=== PATIENT | female | born 1935 | race Caucasian/White ===

== ENCOUNTER 2018-08-14 13:22 | Inpatient (IN) | payer MEDICARE ==
--- NOTE | 2018-08-14 14:27 | ED ---
General Adult HPI - General Chief complaint: Abdominal Pain Stated complaint: ischemic bowel Time Seen by Provider: 08/14/18 13:30 Source: patient, EMS, RN notes reviewed Mode of arrival: EMS Limitations: altered mental status - History of Present Illness Initial comments: This is an 83-year-old female who presents to the emergency department complaining of abdominal pain for 2 days. Patient went to [facility] first had lab work done and a computed tomography scan they transferred the patient here because there were worried about ischemic bowel. Patient states she was vomiting last evening but has had no diarrhea. Patient states the pain is in the right lower quadrant and the only previous abdominal surgery she has had is a hysterectomy. Patient denies any fever or chills. Patient denies any chest pain difficulty breathing shortest breath. Patient denies any dysuria hematuria urinary frequency. Patient denies any back pain. - Related Data Home Medications Medication Instructions Recorded Confirmed Donepezil [Aricept] 10 mg PO DAILY 08/14/18 08/14/18 Fenofibrate 80 mg PO PC-SUPPER 08/14/18 08/14/18 Hydrochlorothiazide 12.5 mg PO DAILY 08/14/18 08/14/18 Allergies Allergy/AdvReac Type Severity Reaction Status Date / Time No Known Allergies Allergy Verified 08/14/18 14:15 Review of Systems ROS Statement: Those systems with pertinent positive or pertinent negative responses have been documented in the HPI. ROS Other: All systems not noted in ROS Statement are negative. Past Medical History Past Medical History: GERD/Reflux, Hyperlipidemia, Hypertension Additional Past Medical History / Comment(s): dementia History of Any Multi-Drug Resistant Organisms: None Reported Past Surgical History: Hysterectomy, Orthopedic Surgery Additional Past Surgical History / Comment(s): left hip Past Psychological History: No Psychological Hx Reported Smoking Status: Former smoker Past Alcohol Use History: None Reported Past Drug Use History: None Reported General Exam - General Exam Comments Initial Comments: GENERAL: Patient is well-developed and well-nourished. Patient is nontoxic and well- hydrated and is in mild distress. ENT: Neck is soft and supple. No significant lymphadenopathy is noted. Oropharynx is clear. Moist mucous membranes. Neck has full range of motion without eliciting any pain. EYES: The sclera were anicteric and conjunctiva were pink and moist. Extraocular movements were intact and pupils were equal round and reactive to light. Eyelids were unremarkable. PULMONARY: Unlabored respirations. Good breath sounds bilaterally. No audible rales rhonchi or wheezing was noted. CARDIOVASCULAR: There is a regular rate and rhythm without any murmurs gallops or rubs. ABDOMEN: Patient has right lower quadrant abdominal tenderness and rebound. SKIN: Skin is clear with no lesions or rashes and otherwise unremarkable. NEUROLOGIC: Patient is alert and oriented 2. Cranial nerves II through XII are grossly intact. Motor and sensory are also intact. Normal speech, volume and content. Symmetrical smile. MUSCULOSKELETAL: Normal extremities with adequate strength and full range of motion. LYMPHATICS: No significant lymphadenopathy is noted PSYCHIATRIC: Normal psychiatric evaluation. Limitations: altered mental status Course Vital Signs 08/14/18 13:29 Temperature 99.1 F Pulse Rate 66 Respiratory 18 Rate Blood Pressure 167/73 O2 Sat by Pulse 98 Oximetry Medical Decision Making - Medical Decision Making Dr. Crocker of radiology reread the CT and definitively stated that the patient had a small bowel obstruction with a transition point. I spoke with Dr. Barron he agreed to admit the patient I admitted the patient I wrote admitting orders. I consulted Dr. Holloway. Disposition Clinical Impression: Small bowel obstruction Disposition: ADMITTED IP TO THIS HOSP Referrals: Teresa Molina MD [Primary Care Provider] - 1-2 days Time of Disposition: 14:57
[2018-08-14] MEDS ORDERED: HYDROmorphone 0.5 MG/0.5 ML SYRINGE IVP STA (14:56)
[2018-08-14] MEDS ORDERED: ONDANSETRON 4 MG/2 ML VIAL IVP STA (14:56)
[2018-08-14] MEDS ORDERED: SODIUM CHLORIDE 0.9% 1,000 ML IV ONE (15:08)
--- NOTE | 2018-08-14 16:27 | P.HPIM ---
History of Present Illness H&P Date: 08/14/18 Chief Complaint: abdominal pain This is an 83 year old female, a patient of Dr. Molina. She has a known past medical history of dementia, hypertension, hyperlipidemia, GERD and hysterectomy. Patient initially presented to [facility] with abdominal pain and vomiting. Symptoms started 3 days ago. Patient lives on her own and her daughter, Eve helps out with the groceries in [place]. Patient did report she had some vomiting on Monday multiple times. She may have had a small bowel movement yesterday. Patient is a poor historian. She presented to [facility] and they had labs and computed tomography scan of the abdomen completed CT had shown fluid in the peritoneal cavity and increased attenuation of the mesenteric fat which findings could be due to ischemia of the bowel versus accumulation of fluid in the peritoneal cavity. There were mildly distended loops of the small bowel, possible ileus. Mild sclerosis of the left femoral head raising possibility of avascular necrosis. Also right kidney cortical renal cyst largest of 3.7 cm. White count 10.95 hemoglobin 13 platelets are 228 lipase 111 lactic elevated at 2.5 creatinine 0.9 BUN 16 AST 25 and ALT 28. Patient was transferred to [facility] for further's treatment and care. Surgery has been consulted. Nursing was unable to get NG tube in place patient had nosebleed. Patient denies any fever, chills, sweats. Denies any burning with urination. Review of Systems Please refer to HPI otherwise unremarkable Past Medical History Past Medical History: GERD/Reflux, Hyperlipidemia, Hypertension Additional Past Medical History / Comment(s): dementia History of Any Multi-Drug Resistant Organisms: None Reported Past Surgical History: Hysterectomy, Orthopedic Surgery Additional Past Surgical History / Comment(s): left hip Past Psychological History: No Psychological Hx Reported Smoking Status: Former smoker Past Alcohol Use History: None Reported Past Drug Use History: None Reported Medications and Allergies Home Medications Medication Instructions Recorded Confirmed Type Donepezil [Aricept] 10 mg PO DAILY 08/14/18 08/14/18 History Fenofibrate 80 mg PO PC-SUPPER 08/14/18 08/14/18 History Hydrochlorothiazide 12.5 mg PO DAILY 08/14/18 08/14/18 History Allergies Allergy/AdvReac Type Severity Reaction Status Date / Time No Known Allergies Allergy Verified 08/14/18 14:15 Physical Exam Vitals: Vital Signs Temp Pulse Resp BP Pulse Ox 08/14/18 13:29 99.1 F 66 18 167/73 98 Intake and Output 08/14/18 08/14/18 08/14/18 06:59 14:59 22:59 Other: Weight 57.7 kg Head normocephalic Neck supple Lungs clear to auscultation bilaterally no wheezing or crackles Heart regular rate and rhythm S1-S2, no rub or gallop Abdomen is distended positive bowel sounds. Currently nontender but patient did receive Dilaudid Extremities no edema Neuro alert and orientated to 2 patient knows her name and place. She was able to identify her daughter at bedside Assessment and Plan Assessment: 1. Abdominal pain with vomiting: CT abdomen at [place] concerns for possible ischemic bowel. Dr. Crocker of radiology reread the CT and definitively stated that the patient had a small bowel obstruction with a transition point per ER record. Surgical consult has been placed. 2. Mildly elevated lactic acid at [place] 2.5 we'll repeat lactic acid level. 3. Essential hypertension: Patient on hydrochlorothiazide at home. Which is on hold due to her nothing by mouth status. We'll add IV Vasotec as needed for systolic blood pressure 160 or diastolic greater than 90 4. Hyperlipidemia 5. Dementia 6. Nosebleed after failing NG tube placement Recheck CBC , CMP and lactic acid GI prophylaxis Protonix and DVT prophylaxis SCDs until seen by surgery. Also monitor patient's nosebleeds. Time with Patient: Greater than 30 (Greater than 50% of the total time spent in counseling and coordination of care.I performed an examination of the patient and discussed their management with the physician Vice President [employer]. I have reviewed the Physician Vice President [employer]'s notes and agree with the documented findings and plan of care)
[2018-08-14 17:41] LABS: Basophils % (A) 0 %; Eosinophils % (A) 0 %; HGB 12.6 gm/dL (11.4-16.0); Lymphocytes # (A) 1.3 k/uL (1.0-4.8); Lymphocytes % (A) 11 %; MCH 29.3 pg (25.0-35.0); MCHC 31.5 g/dL (31.0-37.0); Mean Platelet Volume 9.3; Monocytes % (A) 9 %; Neutrophils # (A) 8.8 k/uL (1.3-7.7); Neutrophils % (A) 78 %; Platelet Count 256 k/uL (150-450); RDW 13.4 % (11.5-15.5); WBC 11.3 k/uL (3.8-10.6)
[2018-08-14 17:53] LABS: Albumin 4.3 g/dL (3.5-5.0); Calcium 10.1 mg/dL (8.4-10.2); Total Bilirubin 0.6 mg/dL (0.2-1.3); Total Protein 7.2 g/dL (6.3-8.2)
[2018-08-14 18:33] VITALS: BMI 21.2
[2018-08-14] MEDS: ONDANSETRON 4 MG/2 ML VIAL IVP PRN (18:50)
[2018-08-14] MEDS: PANTOPRAZOLE 40 MG/10 ML VIAL IVP SCH (18:51)
[2018-08-14] MEDS: HYDROmorphone 0.5 MG/0.5 ML SYRINGE IVP PRN (18:51)
[2018-08-15] MEDS: ENALAPRILAT 1.25 MG/ML 1 ML VIAL IVP PRN ×2 (00:12→08:44)
[2018-08-15] MEDS: ONDANSETRON 4 MG/2 ML VIAL IVP PRN ×2 (02:02→08:01)
[2018-08-15] MEDS: PANTOPRAZOLE 40 MG/10 ML VIAL IVP SCH (08:02)
[2018-08-15 08:43] LABS: Basophils % (A) 0 %; Eosinophils % (A) 0 %; HCT 36.2 % (34.0-46.0); HGB 11.6 gm/dL (11.4-16.0); Lymphocytes % (A) 12 %; MCH 30.2 pg (25.0-35.0); MCHC 32.2 g/dL (31.0-37.0); MCV 93.8 fL (80.0-100.0); Mean Platelet Volume 8.3; Monocytes # (A) 0.9 k/uL (0-1.0); Monocytes % (A) 10 %; Neutrophils # (A) 6.8 k/uL (1.3-7.7); Neutrophils % (A) 75 %; Platelet Count 248 k/uL (150-450); RBC 3.86 m/uL (3.80-5.40); RDW 13.4 % (11.5-15.5)
[2018-08-15] MEDS: HYDROmorphone 0.5 MG/0.5 ML SYRINGE IVP PRN (08:45)
[2018-08-15 08:53] LABS: Albumin 3.6 g/dL (3.5-5.0); Calcium 9.2 mg/dL (8.4-10.2); Potassium 3.9 mmol/L (3.5-5.1); Total Bilirubin 0.6 mg/dL (0.2-1.3); Total Protein 6.2 g/dL (6.3-8.2)
--- NOTE | 2018-08-15 12:14 | P.PN ---
Subjective Progress Note Date: 08/15/18 This is an 83 year old female, a patient of Dr. Molina. She has a known past medical history of dementia, hypertension, hyperlipidemia, GERD and hysterectomy. Patient initially presented to [facility] with abdominal pain and vomiting. Symptoms started 3 days ago. Patient lives on her own and her daughter, Eve helps out with the groceries in [place] [employer]. Patient did report she had some vomiting on Monday multiple times. She may have had a small bowel movement yesterday. Patient is a poor historian. She presented to [facility] and they had labs and computed tomography scan of the abdomen completed CT had shown fluid in the peritoneal cavity and increased attenuation of the mesenteric fat which findings could be due to ischemia of the bowel versus accumulation of fluid in the peritoneal cavity. There were mildly distended loops of the small bowel, possible ileus. Mild sclerosis of the left femoral head raising possibility of avascular necrosis. Also right kidney cortical renal cyst largest of 3.7 cm. White count 10.95 hemoglobin 13 platelets are 228 lipase 111 lactic elevated at 2.5 creatinine 0.9 BUN 16 AST 25 and ALT 28. Patient was transferred to [facility] for further's treatment and care. Surgery has been consulted. Nursing was unable to get NG tube in place patient had nosebleed. Patient denies any fever, chills, sweats. Denies any burning with urination. On 08/15/2018 Patient is alert and oriented 3. NG tube is in place. Patient's stomach is slightly improved per patient. Patients nausea has improved. Awaiting surgical input for plan. At this time patient denies chest pain or shortness of breath. Patient denies any nausea or vomiting. Patient denies any urinary burning or frequency Objective - Vital Signs Vital signs: Vital Signs Temp 98.3 F 08/15/18 07:18 Pulse 73 08/15/18 07:18 Resp 16 08/14/18 23:58 BP 163/69 08/15/18 07:18 Pulse Ox 98 08/15/18 07:18 Intake & Output 08/14/18 08/15/18 08/15/18 18:59 06:59 18:59 Intake Total 75 262.5 Balance 75 262.5 Weight 57.7 kg Intake: Amount of Fluid Infused ( 75 ml) Intake, IV Titration 262.5 Amount Sodium Chloride 0.9% 1, 262.5 000 ml @ 75 mls/hr IV . [id number] ONE Rx#:[id number] Other: Voiding Method Toilet - Exam Head normocephalic Neck supple Lungs clear to auscultation bilaterally no wheezing or crackles Heart regular rate and rhythm S1-S2, no rub or gallop Abdomen is distended positive bowel sounds. Currently nontender but patient did receive Dilaudid Extremities no edema Neuro alert and orientated to 2 patient knows her name and place. She was able to identify her daughter at bedside - Labs CBC & Chem 7: 08/15/18 08:07 08/15/18 08:07 Labs: Abnormal Lab Results - Last 24 Hours (Table) 08/14/18 08/14/18 08/15/18 Range/Units 17:20 17:20 08:07 WBC 11.3 H (3.8-10.6) k/uL Neutrophils # 8.8 H (1.3-7.7) k/uL BUN 18 H (7-17) mg/dL Glucose 127 H 114 H (74-99) mg/dL Total Protein 6.2 L (6.3-8.2) g/dL Assessment and Plan Assessment: 1. Abdominal pain with vomiting: CT abdomen at [place] concerns for possible ischemic bowel. Dr. Crocker of radiology reread the CT and definitively stated that the patient had a small bowel obstruction with a transition point per ER record. Surgical consult has been placed. Patient remains nothing by mouth until evaluated by surgical services 2. Mildly elevated lactic acid at [place] 2.5 we'll repeat lactic acid level. repeat lactic 1.2 3. Essential hypertension: Patient on hydrochlorothiazide at home. Which is on hold due to her nothing by mouth status. We'll add IV Vasotec as needed for systolic blood pressure 160 or diastolic greater than 90 4. Hyperlipidemia 5. Dementia 6. Nosebleed after failing NG tube placement. Resolved NG tube has been placed GI prophylaxis Protonix and DVT prophylaxis SCDs until seen by surgery. I performed an examination of the patient and discussed their management with the Nurse Practitioner. I have reviewed the Nurse Practitioner's notes and agree with the documented findings and plan of care
[2018-08-15] MEDS: DONEPEZIL 10 MG TAB PO SCH (13:01)
[2018-08-15] MEDS: HYDROCHLOROTHIAZIDE 12.5 MG CAP PO SCH (13:01)
[2018-08-15] MEDS ORDERED: ACETAMINOPHEN IV (For NPO) 1,000 MG in EMPTY BAG 1 BAG IVPB PRN (14:39)
--- NOTE | 2018-08-15 15:58 | P.GSCN ---
<Melody Deluca - Last Filed: 08/15/18 16:00> History of Present Illness Consult date: 08/15/18 Reason for Consult: SBO Requesting physician: Feng Leon History of present illness: CHIEF COMPLAINT: Small bowel obstruction HISTORY OF PRESENT ILLNESS: 83-year-old female who presented to [facility] Monday with severe abdominal pain. Patient was found to have a small bowel obstruction and was transferred to [facility]. General surgery was consulted for further evaluation. Patients daughter and son-in-law and have provided much of the HPI. Family reports the patients abdominal pain began on Monday and the patient reported "feeling ill". Patient was experiencing nausea and vomiting. She called her family Monday to take her to the hospital. Patient currently has a NG tube in place with minimal bilious output. Reports pain is tolerable at this time. Denies passing flatus. WBC 11.3 on admission. Repeat 9.0. Vital signs have been stable. Temp 98.3 this AM. PAST MEDICAL HISTORY: See list. PAST SURGICAL HISTORY: See list. SOCIAL HISTORY: No illicit drug use. REVIEW OF SYSTEMS: CONSTITUTIONAL: Denies fever or chills. HEENT: Denies blurred vision, vision changes, or eye pain. Denies hemoptysis CARDIOVASCULAR: Denies chest pain or pressure. RESPIRATORY: No shortness of breath. GASTROINTESTINAL: Refer to HPI for pertinent findings HEMATOLOGIC: Denies bleeding disorders. GENITOURINARY: Denies any blood in urine. SKIN: Denies pruitis. Denies rash. PHYSICAL EXAM: VITAL SIGNS: Reviewed. GENERAL: Well-developed in no acute distress. HEENT: No sclera icterus. Extraocular movements grossly intact. Moist buccal mucosa. Head is atraumatic, normocephalic. ABDOMEN: Soft. Nondistended. Minimal pain upon palpation. NG to LIS with minimal bilious output. NEUROLOGIC: Alert and oriented. Cranial nerves II through XII grossly intact. ASSESSMENT: 1. Small bowel obstruction PLAN: Dr. Otoole reviewed CT scan from [place]. Patient with SBO. Concern for closed loop obstruction. Continue NG and NPO. Repeat abdominal xray in AM. Conservative measures at this time. Patient may require surgical intervention. This was discussed in detail with patients daughter and son and in law at the bedside. Nurse practitioner note has been reviewed by physician. Signing provider agrees with the documented findings, assessment, and plan of care. Past Medical History Past Medical History: GERD/Reflux, Hyperlipidemia, Hypertension Additional Past Medical History / Comment(s): dementia History of Any Multi-Drug Resistant Organisms: None Reported Past Surgical History: Hysterectomy, Orthopedic Surgery Additional Past Surgical History / Comment(s): left hip Past Anesthesia/Blood Transfusion Reactions: No Reported Reaction Past Psychological History: No Psychological Hx Reported Smoking Status: Former smoker Past Alcohol Use History: None Reported Past Drug Use History: None Reported - Past Family History Daughter(s) Family Medical History: No Reported History Mother Family Medical History: Coronary Artery Disease (CAD), Myocardial Infarction ([place]) Medications and Allergies Home Medications Medication Instructions Recorded Confirmed Type Donepezil [Aricept] 10 mg PO DAILY 08/14/18 08/14/18 History Fenofibrate 80 mg PO PC-SUPPER 08/14/18 08/14/18 History Hydrochlorothiazide 12.5 mg PO DAILY 08/14/18 08/14/18 History Allergies Allergy/AdvReac Type Severity Reaction Status Date / Time No Known Allergies Allergy Verified 08/14/18 14:15 Surgical - Exam Vital Signs Temp Pulse Resp BP Pulse Ox 99.1 F 66 18 167/73 98 08/14/18 13:29 08/14/18 13:29 08/14/18 13:29 08/14/18 13:29 08/14/18 13:29 Results - Labs 08/15/18 08:07 08/15/18 08:07 Abnormal Lab Results - Last 24 Hours (Table) 08/14/18 08/14/18 08/15/18 Range/Units 17:20 17:20 08:07 WBC 11.3 H (3.8-10.6) k/uL Neutrophils # 8.8 H (1.3-7.7) k/uL BUN 18 H (7-17) mg/dL Glucose 127 H 114 H (74-99) mg/dL Total Protein 6.2 L (6.3-8.2) g/dL Diabetes panel 08/14/18 08/15/18 Range/Units 17:20 08:07 Sodium 140 140 (137-145) mmol/L Potassium 4.0 3.9 (3.5-5.1) mmol/L Chloride 102 106 (98-107) mmol/L Carbon Dioxide 29 29 (22-30) mmol/L BUN 17 18 H (7-17) mg/dL Creatinine 0.80 0.73 (0.52-1.04) mg/dL Glucose 127 H 114 H (74-99) mg/dL Calcium 10.1 9.2 (8.4-10.2) mg/dL AST 20 20 (14-36) U/L ALT 25 20 (9-52) U/L Alkaline Phosphatase 51 43 (38-126) U/L Total Protein 7.2 6.2 L (6.3-8.2) g/dL Albumin 4.3 3.6 (3.5-5.0) g/dL Calcium panel 08/14/18 08/15/18 Range/Units 17:20 08:07 Calcium 10.1 9.2 (8.4-10.2) mg/dL Albumin 4.3 3.6 (3.5-5.0) g/dL Pituitary panel 08/14/18 08/15/18 Range/Units 17:20 08:07 Sodium 140 140 (137-145) mmol/L Potassium 4.0 3.9 (3.5-5.1) mmol/L Chloride 102 106 (98-107) mmol/L Carbon Dioxide 29 29 (22-30) mmol/L BUN 17 18 H (7-17) mg/dL Creatinine 0.80 0.73 (0.52-1.04) mg/dL Glucose 127 H 114 H (74-99) mg/dL Calcium 10.1 9.2 (8.4-10.2) mg/dL Adrenal panel 08/14/18 08/15/18 Range/Units 17:20 08:07 Sodium 140 140 (137-145) mmol/L Potassium 4.0 3.9 (3.5-5.1) mmol/L Chloride 102 106 (98-107) mmol/L Carbon Dioxide 29 29 (22-30) mmol/L BUN 17 18 H (7-17) mg/dL Creatinine 0.80 0.73 (0.52-1.04) mg/dL Glucose 127 H 114 H (74-99) mg/dL Calcium 10.1 9.2 (8.4-10.2) mg/dL Total Bilirubin 0.6 0.6 (0.2-1.3) mg/dL AST 20 20 (14-36) U/L ALT 25 20 (9-52) U/L Alkaline Phosphatase 51 43 (38-126) U/L Total Protein 7.2 6.2 L (6.3-8.2) g/dL Albumin 4.3 3.6 (3.5-5.0) g/dL <Ori Otoole - Last Filed: 08/15/18 19:39> History of Present Illness History of present illness: As above. Patient with complaints of abdominal pain and bloating. Symptoms for the last 3-4 days. She has experienced a acute change in bowel function. CAT scan from [place] partially loaded on our system. Evidence of distended proximal small bowel loops with collapsed distal small bowel consistent with small bowel obstruction. Some free intraperitoneal fluid is present. Patient's family requested a change in the initial consultation from the on-call surgeon to myself. I was not notified however of this consult until this morning. Apparently the family was quite upset that the patient had not been seen by stan yusuf this morning at 9 AM or so. The family apparently was also concerned that surgical consultation could lead to early operative intervention stating that "surgeons just want to sharma her to the or and operate. They are all about the money." The patient was seen by myself this morning around 11:00 and by my nurse practitioner prior to that. The patient was seen sitting up comfortably in her bed. Still having some abdominal discomfort however improved. Minimal nasogastric tube output. No bowel function. Labs today are improved. Patient's exam however shows persistent distention and bilateral lower quadrant tenderness. Options reviewed with the patient's daughter at the bedside. A pparently the son-in-law who was the most boisterous this morning was not present. Options of observation versus surgical intervention at this time reviewed. Given the stable vital signs and improved white blood cell count I am comfortable with a period of observation. We'll repeat abdominal x-rays tomorrow morning and repeat clinical abdominal examination tomorrow as well. If bowel obstruction and tenderness persist on films and exam however would recommend diagnostic laparoscopy plus or minus exploratory laparotomy. Surgical - Exam Vital Signs Temp Pulse Resp BP Pulse Ox 99.1 F 66 18 167/73 98 08/14/18 13:29 08/14/18 13:29 08/14/18 13:29 08/14/18 13:29 08/14/18 13:29 Results - Labs 08/15/18 08:07 08/15/18 08:07 Abnormal Lab Results - Last 24 Hours (Table) 08/15/18 Range/Units 08:07 BUN 18 H (7-17) mg/dL Glucose 114 H (74-99) mg/dL Total Protein 6.2 L (6.3-8.2) g/dL Diabetes panel 08/15/18 Range/Units 08:07 Sodium 140 (137-145) mmol/L Potassium 3.9 (3.5-5.1) mmol/L Chloride 106 (98-107) mmol/L Carbon Dioxide 29 (22-30) mmol/L BUN 18 H (7-17) mg/dL Creatinine 0.73 (0.52-1.04) mg/dL Glucose 114 H (74-99) mg/dL Calcium 9.2 (8.4-10.2) mg/dL AST 20 (14-36) U/L ALT 20 (9-52) U/L Alkaline Phosphatase 43 (38-126) U/L Total Protein 6.2 L (6.3-8.2) g/dL Albumin 3.6 (3.5-5.0) g/dL Calcium panel 08/15/18 Range/Units 08:07 Calcium 9.2 (8.4-10.2) mg/dL Albumin 3.6 (3.5-5.0) g/dL Pituitary panel 08/15/18 Range/Units 08:07 Sodium 140 (137-145) mmol/L Potassium 3.9 (3.5-5.1) mmol/L Chloride 106 (98-107) mmol/L Carbon Dioxide 29 (22-30) mmol/L BUN 18 H (7-17) mg/dL Creatinine 0.73 (0.52-1.04) mg/dL Glucose 114 H (74-99) mg/dL Calcium 9.2 (8.4-10.2) mg/dL Adrenal panel 08/15/18 Range/Units 08:07 Sodium 140 (137-145) mmol/L Potassium 3.9 (3.5-5.1) mmol/L Chloride 106 (98-107) mmol/L Carbon Dioxide 29 (22-30) mmol/L BUN 18 H (7-17) mg/dL Creatinine 0.73 (0.52-1.04) mg/dL Glucose 114 H (74-99) mg/dL Calcium 9.2 (8.4-10.2) mg/dL Total Bilirubin 0.6 (0.2-1.3) mg/dL AST 20 (14-36) U/L ALT 20 (9-52) U/L Alkaline Phosphatase 43 (38-126) U/L Total Protein 6.2 L (6.3-8.2) g/dL Albumin 3.6 (3.5-5.0) g/dL
[2018-08-15] MEDS: FENOFIBRATE 160 MG TAB PO SCH (18:04)
[2018-08-16] MEDS: HEPARIN SODIUM,PORCINE 5,000 UNIT/ML 1 ML VIAL SQ SCH ×4 (00:07→23:17)
[2018-08-16] MEDS: HYDROmorphone 0.5 MG/0.5 ML SYRINGE IVP PRN ×2 (00:08→09:44)
[2018-08-16 08:03] LABS: Basophils % (A) 0 %; Eosinophils % (A) 0 %; HCT 37.7 % (34.0-46.0); HGB 11.9 gm/dL (11.4-16.0); Lymphocytes # (A) 1.1 k/uL (1.0-4.8); Lymphocytes % (A) 14 %; MCH 29.7 pg (25.0-35.0); MCHC 31.5 g/dL (31.0-37.0); MCV 94.4 fL (80.0-100.0); Mean Platelet Volume 8.9; Monocytes # (A) 0.9 k/uL (0-1.0); Monocytes % (A) 12 %; Neutrophils # (A) 5.5 k/uL (1.3-7.7); Neutrophils % (A) 72 %; Platelet Count 239 k/uL (150-450); RDW 13.3 % (11.5-15.5); WBC 7.6 k/uL (3.8-10.6)
[2018-08-16 08:17] LABS: ALT 27 U/L (9-52); AST 23 U/L (14-36); Albumin 3.4 g/dL (3.5-5.0); Alkaline Phosphatase 44 U/L (38-126); Anion Gap 7 mmol/L; Blood Urea Nitrogen 19 mg/dL (7-17); Carbon Dioxide 26 mmol/L (22-30); Chloride 108 mmol/L (98-107); Glucose 93 mg/dL (74-99); Potassium 3.7 mmol/L (3.5-5.1); Sodium 141 mmol/L (137-145); Total Bilirubin 0.7 mg/dL (0.2-1.3); Total Protein 5.9 g/dL (6.3-8.2)
--- NOTE | 2018-08-16 08:29 | XR ---
2 view abdomen HISTORY: Small bowel obstruction, lower abdominal pain 2 views of the abdomen correlated to prior exam CT 08/14/2018 from outside institution Multiple air-fluid levels and distended loops of bowel are present. NG tube shows the distal tip at t he level of the distal esophagus. Lung bases are clear. There is a scoliosis. No pneumoperitoneum. IMPRESSION: Suboptimal NG tube placement. Findings compatible with small bowel obstruction. A Yellow level critical message alert has been initiated for Melina Barron MD via the [employer] Critical Results System on 08/16/2018 8:25 AM. This message alert has been sent to Melina Barron MD via the preferences provided by the clinician for the receipt of Radiology Critical Findings. Message ID [id number].
[2018-08-16] MEDS: ENALAPRILAT 1.25 MG/ML 1 ML VIAL IVP PRN (09:44)
[2018-08-16] MEDS: ONDANSETRON 4 MG/2 ML VIAL IVP PRN (09:44)
[2018-08-16 09:53] LABS: Appearance,Urine Clear (Clear); Bacteria,Urine Rare /hpf; Bilirubin,Urine Negative (Negative); Blood,Urine Negative (Negative); Color,Urine Yellow; Glucose,Urine (UA) Negative (Negative); Ketones,Urine 1+ (Negative); Leukocyte Esterase,Urine Trace (Negative); Mucus,Urine Rare /hpf; Nitrite,Urine Negative (Negative); PH, Urine 5.5 (5.0-8.0); Protein,Urine Trace (Negative); RBC,Urine 1 /hpf (0-5); Specific Gravity,Urine 1.023 (1.001-1.035); Squamous Epithelial Cell,Urine 2 /hpf (0-4); Urobilinogen,Urine <2.0 mg/dL (<2.0)
[2018-08-16] MEDS: DONEPEZIL 10 MG TAB PO SCH (11:08)
[2018-08-16] MEDS: HYDROCHLOROTHIAZIDE 12.5 MG CAP PO SCH (11:08)
--- NOTE | 2018-08-16 13:05 | P.PN ---
Progress Note - Text Progress Note Date: 08/16/18 Patient was again seen by the nurse practitioner earlier this morning. Still having some abdominal discomfort and no bowel function. Today's x-rays show persistent small bowel obstruction. She is afebrile with no tachycardia. White blood cell count remains normal. On examination patient continues to have lower abdominal tenderness. No peritoneal signs. Options reviewed with the patients daughter and the patient herself. At this point further diagnostics will likely not be beneficial. Recommend exploratory laparotomy with possible bowel resection. Risks of bleeding, infection, leak, abscess, hernia, recurrent obstruction, respiratory and cardiac complications reviewed. They understand and wish to proceed. Unfortunately the patient's son-in-law was once again fairly hostile this morning apparently he is most upset about not seeing the admitting physician and there was discussion about switching the admitting physician to a different hospitalist service. Apparently he has no issues currently with the care that the surgical services have provided thus far. Apparently he initially was discussing possible transfer once again but changed his mind after further discussing her case with the nurses and my nurse practitioner this morning.
--- NOTE | 2018-08-16 13:29 | P.PN ---
Subjective Progress Note Date: 08/16/18 CHIEF COMPLAINT: Small bowel obstruction HISTORY OF PRESENT ILLNESS: Patient seen and examined at approximately 0900 this morning. The patient reports increased pain this morning and states "I feel like crap". Clinically, patient appears much more uncomfortable this morning. Abdominal xray completed this morning revealing persistent small bowel obstruction. NG tube was advanced by nursing per radiologist recommendations. Patient denies passing flatus. No BM. PHYSICAL EXAM: VITAL SIGNS: Reviewed. GENERAL: Well-developed in no acute distress. HEENT: No sclera icterus. Extraocular movements grossly intact. Moist buccal mucosa. Head is atraumatic, normocephalic. ABDOMEN: Soft. Distended. Pain and tenderness noted upon palpation of left and right lower quadrants. NG to LIS with minimal bilious output. NEUROLOGIC: Alert and oriented. Cranial nerves II through XII grossly intact. ASSESSMENT: 1. Small bowel obstruction PLAN: Case discussed with Dr. Otoole early this morning. Likely exploratory laparotomy this afternoon. Will update family upon their arrival to the hospital. Nurse practitioner note has been reviewed by physician. Signing provider agrees with the documented findings, assessment, and plan of care. Objective - Vital Signs Vital signs: Vital Signs Temp 98.3 F 08/16/18 07:00 Pulse 73 08/16/18 07:00 Resp 16 08/16/18 07:00 BP 177/68 08/16/18 07:00 Pulse Ox 97 08/16/18 07:00 Intake & Output 08/15/18 08/16/18 08/16/18 18:59 06:59 18:59 Intake Total 600 750 Output Total 300 Balance 600 450 Intake: Intake, IV Titration 600 750 Amount Sodium Chloride 0.9% 1, 600 750 000 ml @ 75 mls/hr IV . [id number] ONE Rx#:[id number] Output: Gastric Drainage 300 Other: # Voids 2 1 - Labs CBC & Chem 7: 08/16/18 07:29 08/16/18 07:29 Labs: Abnormal Lab Results - Last 24 Hours (Table) 08/16/18 08/16/18 Range/Units 06:30 07:29 Chloride 108 H (98-107) mmol/L BUN 19 H (7-17) mg/dL Total Protein 5.9 L (6.3-8.2) g/dL Albumin 3.4 L (3.5-5.0) g/dL Urine Protein Trace H (Negative) Urine Ketones 1+ H (Negative) Ur Leukocyte Esterase Trace H (Negative) Urine WBC 7 H (0-5) /hpf Urine Bacteria Rare H (None) /hpf Urine Mucus Rare H (None) /hpf
[2018-08-16] MEDS ORDERED: IV FLUID CONTINUATION 500 ML IV ONE (13:34)
[2018-08-16] MEDS ORDERED: LIDOCAINE 1% 20 ML VIAL (10MG/ML) FOR IV START INTRADERMA ONE (13:49)
[2018-08-16] MEDS ORDERED: LACTATED RINGERS 1,000 ML IV ONE ×2 (13:51→15:15)
[2018-08-16] MEDS ORDERED: fentaNYL (PF) 50 MCG/ML 2 ML AMP IVP ONE (13:58)
[2018-08-16] MEDS ORDERED: MIDAZOLAM 2 MG/2 ML VIAL IVP ONE (13:58)
--- NOTE | 2018-08-16 14:13 | P.PN ---
Subjective Progress Note Date: 08/16/18 This is an 83 year old female, a patient of Dr. Molina. She has a known past medical history of dementia, hypertension, hyperlipidemia, GERD and hysterectomy. Patient initially presented to [facility] with abdominal pain and vomiting. Symptoms started 3 days ago. Patient lives on her own and her daughter, Eve helps out with the groceries in [place]. Patient did report she had some vomiting on Monday multiple times. She may have had a small bowel movement yesterday. Patient is a poor historian. She presented to [facility] and they had labs and computed tomography scan of the abdomen completed CT had shown fluid in the peritoneal cavity and increased attenuation of the mesenteric fat which findings could be due to ischemia of the bowel versus accumulation of fluid in the peritoneal cavity. There were mildly distended loops of the small bowel, possible ileus. Mild sclerosis of the left femoral head raising possibility of avascular necrosis. Also right kidney cortical renal cyst largest of 3.7 cm. White count 10.95 hemoglobin 13 platelets are 228 lipase 111 lactic elevated at 2.5 creatinine 0.9 BUN 16 AST 25 and ALT 28. Patient was transferred to [facility] for further's treatment and care. Surgery has been consulted. Nursing was unable to get NG tube in place patient had nosebleed. Patient denies any fever, chills, sweats. Denies any burning with urination. On 08/15/2018 Patient is alert and oriented 3. NG tube is in place. Patient's stomach is slightly improved per patient. Patients nausea has improved. Awaiting surgical input for plan. At this time patient denies chest pain or shortness of breath. Patient denies any nausea or vomiting. Patient denies any urinary burning or frequency On 08/16/2018 patient is currently resting in bed. Patient's son at bedside. NG tube remains in place. Discussed case with surgical services MARK Oliver. Patient will likely undergo surgery today with Dr. adam for small bowel obst ruction. At this time patient is still having some abdominal pain. Patient denies chest pain or shortness of breath. Patient denies any urinary burning or frequency. All questions were answered Objective - Vital Signs Vital signs: Vital Signs Temp 99.2 F 08/16/18 13:37 Pulse 65 08/16/18 13:37 Resp 16 08/16/18 13:37 BP 176/74 08/16/18 13:37 Pulse Ox 97 08/16/18 13:37 Intake & Output 08/15/18 08/16/18 08/16/18 18:59 06:59 18:59 Intake Total 600 750 Output Total 300 Balance 600 450 Intake: Intake, IV Titration 600 750 Amount Sodium Chloride 0.9% 1, 600 750 000 ml @ 75 mls/hr IV . [id number] ONE Rx#:[id number] Output: Gastric Drainage 300 Other: # Voids 2 1 - Exam Head normocephalic Neck supple Lungs clear to auscultation bilaterally no wheezing or crackles Heart regular rate and rhythm S1-S2, no rub or gallop Abdomen is distended positive bowel sounds. Currently nontender but patient did receive Dilaudid Extremities no edema Neuro alert and orientated to 2 patient knows her name and place. She was able to identify her daughter at bedside - Labs CBC & Chem 7: 08/16/18 07:29 08/16/18 07:29 Labs: Abnormal Lab Results - Last 24 Hours (Table) 08/16/18 08/16/18 Range/Units 06:30 07:29 Chloride 108 H (98-107) mmol/L BUN 19 H (7-17) mg/dL Total Protein 5.9 L (6.3-8.2) g/dL Albumin 3.4 L (3.5-5.0) g/dL Urine Protein Trace H (Negative) Urine Ketones 1+ H (Negative) Ur Leukocyte Esterase Trace H (Negative) Urine WBC 7 H (0-5) /hpf Urine Bacteria Rare H (None) /hpf Urine Mucus Rare H (None) /hpf Assessment and Plan Assessment: 1. Abdominal pain with vomiting: CT abdomen at [place] concerns for possible ischemic bowel. Dr. Crocker of radiology reread the CT and definitively stated that the patient had a small bowel obstruction with a transition point per ER record. Repeat abdominal x-ray this a.m. showing Findings compatible with small bowel obstruction. Patient was seen by surgical services recommending exploratory lap with possible bowel resection. 2. Mildly elevated lactic acid at [place] 2.5 we'll repeat lactic acid level. repeat lactic 1.2 3. Essential hypertension: Patient on hydrochlorothiazide at home. Which is on hold due to her nothing by mouth status. We'll add IV Vasotec as needed for systolic blood pressure 160 or diastolic greater than 90 4. Hyperlipidemia 5. Dementia 6. Nosebleed after failing NG tube placement. Resolved NG tube has been placed 7. Trace leukocyte Estrace on urinary analysis. White blood cell 7.6. Patient asymptomatic. Urine culture has been ordered GI prophylaxis Protonix and DVT prophylaxis SCDs until seen by surgery. I performed an examination of the patient and discussed their management with the Nurse Practitioner. I have reviewed the Nurse Practitioner's notes and agree with the documented findings and plan of care
[2018-08-16] MEDS ORDERED: ceFAZolin 2 GM in SODIUM CHLORIDE 0.9% 100 ML IVPB ONE (14:17)
[2018-08-16] MEDS ORDERED: ceFAZolin IN SWFI 2 GM/20 ML SYRINGE IVP ONE (14:30)
[2018-08-16] MEDS ORDERED: SODIUM CHLORIDE 0.9% 50 ML with ceFAZolin 2,000 MG IV ONE ×2 (15:00)
[2018-08-16] MEDS ORDERED: diphenhydrAMINE 50 MG/ML 1 ML VIAL IVP PRN (15:03)
[2018-08-16] MEDS ORDERED: NALBUPHINE 10 MG/ML (1 ML AMP) IV PRN (15:03)
[2018-08-16] MEDS ORDERED: NALOXONE 0.4 MG/ML 1 ML VIAL IV PRN (15:03)
[2018-08-16] MEDS: ROPIVACAINE 300 MG, HYDROMORPHONE (PF) 5 MG in SODIUM CHLORIDE 0.9% 190 ML EPIDURAL PRN (16:28)
--- NOTE | 2018-08-16 16:35 | P.OP ---
Date of Procedure: 08/16/18 Procedure(s) Performed: PREOPERATIVE DIAGNOSIS: Small bowel obstruction POSTOPERATIVE DIAGNOSIS: Small bowel obstruction secondary to adhesions PROCEDURE: Exploratory laparotomy with extensive lysis of adhesions SURGEON: Xiang EBL: Minimal ANESTHESIA: General COMPLICATIONS: None OPERATIVE PROCEDURE: Patient place never table in the supine position. The patient was placed under general anesthesia. The abdomen was prepped and draped sterilely. A midline incision was made and later lengthened slightly. Subcutaneous tissues and fascia divided using electrocautery. The patient had a large amount of serous fluid within the abdomen that was evacuated. The patient had adhesions beneath the midline that were lysed using sharp dissection and blunt dissection. The patient proximal small bowel was significantly distended. This was followed to a definitive transition point where there was a adhesive band between the small bowel and mesentery. There was evidence of induration at this site without ischemic changes. This band was divided using electrocautery. The bowel was then followed distally where there was noted to be extensive adhesions involving the distal 20-30% of the small bowel. I was concerned about an area in the terminal ileum that appeared chronically narrowed. As we mobilized these adhesions using sharp dissection and electrocautery we were able to get to the point of the narrowing. This appeared to be a site of possible chronic obstructive change. Once the adhesions at that location were lysed the bowel took a more normal appearance. No serosal tears or enterotomies were seen during our dissection. The abdomen was irrigated with saline. The fascia was then reapproximated using double-stranded #1 PDS sutures. Subcutaneous closed using 3-0 Vicryl sutures. Skin closed using mumtaz. Sterile dressings applied. DISPOSITION: Stable to recovery room
[2018-08-16] MEDS: PANTOPRAZOLE 40 MG/10 ML VIAL IVP SCH (17:57)
[2018-08-16] MEDS: FENOFIBRATE 160 MG TAB PO SCH (17:58)
[2018-08-16] MEDS ORDERED: SODIUM CHLORIDE 0.9% 500 ML 500 ML IV ONE (22:01)
[2018-08-17] MEDS: HEPARIN SODIUM,PORCINE 5,000 UNIT/ML 1 ML VIAL SQ SCH ×3 (07:43→23:26)
[2018-08-17] MEDS: PANTOPRAZOLE 40 MG/10 ML VIAL IVP SCH (07:43)
[2018-08-17 08:21] LABS: Basophils % (A) 0 %; Eosinophils % (A) 0 %; HCT 35.4 % (34.0-46.0); HGB 10.7 gm/dL (11.4-16.0); Hypochromasia Slight; Lymphocytes % (A) 10 %; MCH 28.9 pg (25.0-35.0); MCHC 30.3 g/dL (31.0-37.0); MCV 95.3 fL (80.0-100.0); Mean Platelet Volume 9.2; Monocytes # (A) 1.1 k/uL (0-1.0); Monocytes % (A) 11 %; Neutrophils # (A) 7.8 k/uL (1.3-7.7); Neutrophils % (A) 76 %; Platelet Count 233 k/uL (150-450); RBC 3.71 m/uL (3.80-5.40); RDW 13.4 % (11.5-15.5); WBC 10.2 k/uL (3.8-10.6)
[2018-08-17 08:30] LABS: Albumin 2.5 g/dL (3.5-5.0); Calcium 8.4 mg/dL (8.4-10.2); Total Bilirubin 0.4 mg/dL (0.2-1.3); Total Protein 4.8 g/dL (6.3-8.2)
--- NOTE | 2018-08-17 11:18 | P.PN ---
<DelucaMelody Macho - Last Filed: 08/17/18 11:19> Subjective Progress Note Date: 08/17/18 CHIEF COMPLAINT: Small bowel obstruction HISTORY OF PRESENT ILLNESS: S/P exploratory laparotomy with extensive lysis of adhesions. POD #1. Patient seen and examined this morning at the bedside. No family present. Patient is awake and alert. She reports abdominal pain, but states it is tolerable and improved from yesterday. NG to LIS with bilious drainage. Epidural intact and infusing at 5cc/hr. Natarajan noted. Denies nausea or vomiting. Denies passing flatus. WBC 10.2. Hemoglobin 10.7. PHYSICAL EXAM: VITAL SIGNS: Reviewed. GENERAL: Well-developed in no acute distress. HEENT: No sclera icterus. Extraocular movements grossly intact. Moist buccal mucosa. Head is atraumatic, normocephalic. ABDOMEN: Soft. Nondistended. Dressing to midline incision with small amount of old bloody drainage. No bowel sounds. NG to LIS with bilious output. NEUROLOGIC: Alert and oriented. Cranial nerves II through XII grossly intact. ASSESSMENT: 1. Small bowel obstruction, complete, s/p exploratory laparotomy with extensive lysis of adhesions PLAN: 1. NPO. Await bowel function 2. Continue NG to LIS 3. Continue epidural and natarajan. Remove POD #3 4. Activity as tolerated. Patient encouraged to be OOB and up in chair today 5. Incentive spirometry Nurse practitioner note has been reviewed by physician. Signing provider agrees with the documented findings, assessment, and plan of care. Objective - Vital Signs Vital signs: Vital Signs Temp 98.3 F 08/17/18 07:00 Pulse 79 08/17/18 07:00 Resp 16 08/17/18 01:23 BP 154/63 08/17/18 07:00 Pulse Ox 96 08/17/18 07:00 Intake & Output 08/16/18 08/17/18 08/17/18 18:59 06:59 18:59 Intake Total 2350 150 Output Total 380 550 Balance 1970 - Intake: IV 1600 Intake, IV Titration 750 150 Amount Lactated Ringers 1,000 ml 150 @ 0 mls/hr IV .STK-MED ONE Rx#:[id number] Sodium Chloride 0.9% 1, 750 000 ml @ 75 mls/hr IV . [id number] ONE Rx#:[id number] Output: Gastric Drainage 300 350 Urine 50 200 Estimated Blood Loss 30 Other: Voiding Method Indwelling Catheter Indwelling Catheter Indwelling Catheter - Labs CBC & Chem 7: 08/17/18 07:39 08/17/18 07:39 Labs: Abnormal Lab Results - Last 24 Hours (Table) 08/17/18 08/17/18 Range/Units 07:39 07:39 RBC 3.71 L (3.80-5.40) m/uL Hgb 10.7 L (11.4-16.0) gm/dL MCHC 30.3 L (31.0-37.0) g/dL Neutrophils # 7.8 H (1.3-7.7) k/uL Monocytes # 1.1 H (0-1.0) k/uL Chloride 113 H (98-107) mmol/L BUN 23 H (7-17) mg/dL Total Protein 4.8 L (6.3-8.2) g/dL Albumin 2.5 L (3.5-5.0) g/dL Microbiology - Last 24 Hours (Table) 08/16/18 20:11 Urine Culture - Preliminary Urine,Catheterized <Ori Otoole - Last Filed: 08/17/18 15:59> Subjective Patient doing fairly well today. She says her pain is much improved. Her n asogastric tube fell out. It has not put out much over the last 12 hours however. Labs noted. Will keep nothing by mouth. Increase activity. Objective - Vital Signs Vital signs: Vital Signs Temp 98.8 F 08/17/18 15:44 Pulse 72 08/17/18 15:44 Resp 18 08/17/18 15:44 BP 147/63 08/17/18 15:44 Pulse Ox 97 08/17/18 15:44 Intake & Output 08/16/18 08/17/18 08/17/18 18:59 06:59 18:59 Intake Total 2350 150 Output Total 380 550 Balance 1970 -400 Weight 57.7 kg Intake: IV 1600 Intake, IV Titration 750 150 Amount Lactated Ringers 1,000 ml 150 @ 0 mls/hr IV .STK-MED ONE Rx#:[id number] Sodium Chloride 0.9% 1, 750 000 ml @ 75 mls/hr IV . [id number] ONE Rx#:[id number] Output: Gastric Drainage 300 350 Urine 50 200 Estimated Blood Loss 30 Other: Voiding Method Indwelling Catheter Indwelling Catheter Indwelling Catheter - Labs CBC & Chem 7: 08/17/18 07:39 08/17/18 07:39 Labs: Abnormal Lab Results - Last 24 Hours (Table) 08/17/18 08/17/18 Range/Units 07:39 07:39 RBC 3.71 L (3.80-5.40) m/uL Hgb 10.7 L (11.4-16.0) gm/dL MCHC 30.3 L (31.0-37.0) g/dL Neutrophils # 7.8 H (1.3-7.7) k/uL Monocytes # 1.1 H (0-1.0) k/uL Chloride 113 H (98-107) mmol/L BUN 23 H (7-17) mg/dL Total Protein 4.8 L (6.3-8.2) g/dL Albumin 2.5 L (3.5-5.0) g/dL Microbiology - Last 24 Hours (Table) 08/16/18 20:11 Urine Culture - Preliminary Urine,Catheterized
--- NOTE | 2018-08-17 11:29 | P.PN ---
Progress Note - Text Anesthesia POD 1. Status Post exploratory laparotomy with extensive lysis of adhesions under general endotracheal anesthesia with an epidrual catheter placed at T12 for post surgical pain releif. VAS (0, 3) with Ropivicaine 0.12 % and Dilaudid 20 mcg / cc running at 5 cc / hr. Lower extremity strength (4/4). [] sedation. Site looks OK.
--- NOTE | 2018-08-17 13:18 | P.PN ---
Subjective Progress Note Date: 08/17/18 This is an 83 year old female, a patient of Dr. Molina. She has a known past medical history of dementia, hypertension, hyperlipidemia, GERD and hysterectomy. Patient initially presented to [facility] with abdominal pain and vomiting. Symptoms started 3 days ago. Patient lives on her own and her daughter, Eve helps out with the groceries in [place]. Patient did report she had some vomiting on Monday multiple times. She may have had a small bowel movement yesterday. Patient is a poor historian. She presented to [facility] and they had labs and computed tomography scan of the abdomen completed CT had shown fluid in the peritoneal cavity and increased attenuation of the mesenteric fat which findings could be due to ischemia of the bowel versus accumulation of fluid in the peritoneal cavity. There were mildly distended loops of the small bowel, possible ileus. Mild sclerosis of the left femoral head raising possibility of avascular necrosis. Also right kidney cortical renal cyst largest of 3.7 cm. White count 10.95 hemoglobin 13 platelets are 228 lipase 111 lactic elevated at 2.5 creatinine 0.9 BUN 16 AST 25 and ALT 28. Patient was transferred to [facility] for further's treatment and care. Surgery has been consulted. Nursing was unable to get NG tube in place patient had nosebleed. Patient denies any fever, chills, sweats. Denies any burning with urination. On 08/15/2018 Patient is alert and oriented 3. NG tube is in place. Patient's stomach is slightly improved per patient. Patients nausea has improved. Awaiting surgical input for plan. At this time patient denies chest pain or shortness of breath. Patient denies any nausea or vomiting. Patient denies any urinary burning or frequency On 08/16/2018 patient is currently resting in bed. Patient's son at bedside. NG tube remains in place. Discussed case with surgical services MARK Oliver. Patient will likely undergo surgery today with Dr. adam for small bowel obst ruction. At this time patient is still having some abdominal pain. Patient denies chest pain or shortness of breath. Patient denies any urinary burning or frequency. All questions were answered 08/17/2018 patient is postop day #1 status post exploratory laparotomy with extensive lysis of adhesions with Dr. Otoole. She tolerated surgery well. She currently has NG tube in place and is nothing by mouth. Yesterday she became hypotensive to be held and she was given fluid boluses. Blood pressures have improved. Pain is controlled. She denies any chest pain or shortness breath. Has not had any bowel movement or passed gas yet. Objective - Vital Signs Vital signs: Vital Signs Temp 98.3 F 08/17/18 07:00 Pulse 79 08/17/18 07:00 Resp 16 08/17/18 01:23 BP 154/63 08/17/18 07:00 Pulse Ox 96 08/17/18 07:00 Intake & Output 08/16/18 08/17/18 08/17/18 18:59 06:59 18:59 Intake Total 2350 150 Output Total 380 550 Balance 1970 -400 Intake: IV 1600 Intake, IV Titration 750 150 Amount Lactated Ringers 1,000 ml 150 @ 0 mls/hr IV .STK-MED ONE Rx#:[id number] Sodium Chloride 0.9% 1, 750 000 ml @ 75 mls/hr IV . [id number] ONE Rx#:[id number] Output: Gastric Drainage 300 350 Urine 50 200 Estimated Blood Loss 30 Other: Voiding Method Indwelling Catheter Indwelling Catheter Indwelling Catheter - Exam Head normocephalic Neck supple Lungs clear to auscultation bilaterally no wheezing or crackles Heart regular rate and rhythm S1-S2, no rub or gallop Abdomen is soft nondistended no bowel sounds tender with palpation incision sites Extremities no edema Neuro alert and orientated - Labs CBC & Chem 7: 08/17/18 07:39 08/17/18 07:39 Labs: Abnormal Lab Results - Last 24 Hours (Table) 08/17/18 08/17/18 Range/Units 07:39 07:39 RBC 3.71 L (3.80-5.40) m/uL Hgb 10.7 L (11.4-16.0) gm/dL MCHC 30.3 L (31.0-37.0) g/dL Neutrophils # 7.8 H (1.3-7.7) k/uL Monocytes # 1.1 H (0-1.0) k/uL Chloride 113 H (98-107) mmol/L BUN 23 H (7-17) mg/dL Total Protein 4.8 L (6.3-8.2) g/dL Albumin 2.5 L (3.5-5.0) g/dL Microbiology - Last 24 Hours (Table) 08/16/18 20:11 Urine Culture - Preliminary Urine,Catheterized Assessment and Plan Assessment: 1. Small bowel obstruction status post exploratory laparotomy with extensive lysis of adhesions. Patient is currently nothing by mouth and has NG tube in place. Continue pain control. Continue epidural. And continue incentive spirometry 2. Mildly elevated lactic acid at [place] 2.5 we'll repeat lactic acid level. Repeat lactic 1.2 3. Essential hypertension: Hydrochlorothiazide and is on hold due to the patient hypotensive. 4. Hyperlipidemia 5. Dementia 6. Nosebleed resolved NG tube in place 7. Urinalysis with trace leukocyte esterase. Patient asymptomatic. Urine cu lture pending 8. Hypotension secondary to pain meds and epidural. Improved with IV fluids. Continue holding HCTZ. Continue IV fluids GI prophylaxis Protonix and DVT prophylaxis subcu heparin Encourage patient to increase activity I performed an examination of the patient and discussed their management with the physician Geriatric Case Manager. I have reviewed the Physician Geriatric Case Manager's notes and agree with the documented findings and plan of care
[2018-08-17] MEDS ORDERED: PHENYLEPHRINE-0.9% NACL SYG 1 MG/10 ML SYRINGE ONE (14:34)
[2018-08-17] MEDS ORDERED: GLYCOPYRROLATE 0.2 MG/ML 2 ML VIAL ONE (14:34)
[2018-08-17] MEDS ORDERED: MIDAZOLAM 2 MG/2 ML VIAL ONE (14:34)
[2018-08-17] MEDS ORDERED: HEPARIN SODIUM,PORCINE 5,000 UNIT/ML 1 ML VIAL ONE (14:34)
[2018-08-17] MEDS ORDERED: ROCURONIUM BROMIDE 10 MG/ML 10 ML VIAL IV ONE (14:34)
[2018-08-17] MEDS ORDERED: SUCCINYLCHOLINE CHLORIDE 100 MG/5 ML SYR IV ONE (14:34)
[2018-08-17] MEDS ORDERED: PROPOFOL 10 MG/ML 20 ML VIAL IV ONE (14:34)
[2018-08-17] MEDS ORDERED: NEOSTIGMINE 1 MG/ML 10 ML VIAL ONE (14:34)
[2018-08-17] MEDS ORDERED: fentaNYL (PF) 50 MCG/ML 2 ML AMP ONE (14:34)
[2018-08-17] MEDS: FENOFIBRATE 160 MG TAB PO SCH (16:14)
[2018-08-17] MEDS: DONEPEZIL 10 MG TAB PO SCH (16:14)
[2018-08-17] MEDS: HYDROCHLOROTHIAZIDE 12.5 MG CAP PO SCH (20:01)
[2018-08-17] MEDS: SODIUM CHLORIDE 0.9% 1,000 ML IV SCH (23:27)
[2018-08-18] MEDS: ROPIVACAINE 300 MG, HYDROMORPHONE (PF) 5 MG in SODIUM CHLORIDE 0.9% 190 ML EPIDURAL PRN (04:15)
[2018-08-18] MEDS: DONEPEZIL 10 MG TAB PO SCH (07:20)
[2018-08-18] MEDS: HEPARIN SODIUM,PORCINE 5,000 UNIT/ML 1 ML VIAL SQ SCH ×2 (07:22→17:07)
[2018-08-18] MEDS: PANTOPRAZOLE 40 MG/10 ML VIAL IVP SCH (07:22)
[2018-08-18] MEDS: SODIUM CHLORIDE 0.9% 1,000 ML IV SCH (07:23)
[2018-08-18 07:33] LABS: Basophils % (A) 0 %; Eosinophils # (A) 0.1 k/uL (0-0.7); Eosinophils % (A) 1 %; HGB 9.6 gm/dL (11.4-16.0); Hypochromasia Slight; Lymphocytes # (A) 0.9 k/uL (1.0-4.8); Lymphocytes % (A) 11 %; MCH 29.3 pg (25.0-35.0); MCHC 30.9 g/dL (31.0-37.0); MCV 94.9 fL (80.0-100.0); Monocytes # (A) 0.9 k/uL (0-1.0); Monocytes % (A) 10 %; Neutrophils # (A) 6.7 k/uL (1.3-7.7); Neutrophils % (A) 76 %; Platelet Count 222 k/uL (150-450); RBC 3.27 m/uL (3.80-5.40); RDW 13.3 % (11.5-15.5); WBC 8.8 k/uL (3.8-10.6)
[2018-08-18 07:44] LABS: ALT 27 U/L (9-52); AST 27 U/L (14-36); Albumin 2.5 g/dL (3.5-5.0); Alkaline Phosphatase 46 U/L (38-126); Anion Gap 8 mmol/L; Blood Urea Nitrogen 17 mg/dL (7-17); Calcium 8.4 mg/dL (8.4-10.2); Carbon Dioxide 22 mmol/L (22-30); Chloride 114 mmol/L (98-107); Glucose 76 mg/dL (74-99); Potassium 3.8 mmol/L (3.5-5.1); Sodium 144 mmol/L (137-145); Total Bilirubin 0.6 mg/dL (0.2-1.3); Total Protein 4.6 g/dL (6.3-8.2)
--- NOTE | 2018-08-18 11:04 | P.PN ---
Subjective Progress Note Date: 08/18/18 This is an 83 year old female, a patient of Dr. Molina. She has a known past medical history of dementia, hypertension, hyperlipidemia, GERD and hysterectomy. Patient initially presented to [facility] with abdominal pain and vomiting. Symptoms started 3 days ago. Patient lives on her own and her daughter, Eve helps out with the groceries in [employer]. Patient did report she had some vomiting on Monday multiple times. She may have had a small bowel movement yesterday. Patient is a poor historian. She presented to [facility] and they had labs and computed tomography scan of the abdomen completed CT had shown fluid in the peritoneal cavity and increased attenuation of the mesenteric fat which findings could be due to ischemia of the bowel versus accumulation of fluid in the peritoneal cavity. There were mildly distended loops of the small bowel, possible ileus. Mild sclerosis of the left femoral head raising possibility of avascular necrosis. Also right kidney c ortical renal cyst largest of 3.7 cm. White count 10.95 hemoglobin 13 platelets are 228 lipase 111 lactic elevated at 2.5 creatinine 0.9 BUN 16 AST 25 and ALT 28. Patient was transferred to [facility] for further's treatment and care. Surgery has been consulted. Nursing was unable to get NG tube in place patient had nosebleed. Patient denies any fever, chills, sweats. Denies any burning with urination. On 08/15/2018 Patient is alert and oriented 3. NG tube is in place. Patient's stomach is slightly improved per patient. Patients nausea has improved. Awaiting surgical input for plan. At this time patient denies chest pain or shortness of breath. Patient denies any nausea or vomiting. Patient denies any urinary burning or frequency On 08/16/2018 patient is currently resting in bed. Patient's son at bedside. NG tube remains in place. Discussed case with surgical services MARK Oliver. Patient will likely undergo surgery today with Dr. adam for small bowel obstr uction. At this time patient is still having some abdominal pain. Patient denies chest pain or shortness of breath. Patient denies any urinary burning or frequency. All questions were answered 08/17/2018 patient is postop day #1 status post exploratory laparotomy with extensive lysis of adhesions with Dr. Otoole. She tolerated surgery well. She currently has NG tube in place and is nothing by mouth. Yesterday she became hypotensive to be held and she was given fluid boluses. Blood pressures have improved. Pain is controlled. She denies any chest pain or shortness breath. Has not had any bowel movement or passed gas yet. On 08/18/2018 patient is postop day 2 status post exploratory lap with extensive lysis of adhesions. Patient remains on face's only. NG has been removed. marshal burnett's daughter is at bedside. All questions answered at this time. Blood pressure has improved.. Awaiting surgical services for further advance diet Objective - Vital Signs Vital signs: Vital Signs Temp 98.8 F 08/18/18 07:00 Pulse 80 08/18/18 07:00 Resp 18 08/18/18 07:10 BP 151/66 08/18/18 07:00 Pulse Ox 95 08/18/18 07:00 Intake & Output 08/17/18 08/18/18 08/18/18 18:59 06:59 18:59 Intake Total 0 775 Output Total 300 800 Balance -300 -25 Weight 57.7 kg Intake: Intake, IV Titration 775 Amount Sodium Chloride 0.9% 1, 775 000 ml @ 75 mls/hr IV . [id number] [facility] Rx#:[id number] Oral 0 Output: Urine 300 800 Uretheral (Daugherty) 400 Other: Voiding Method Indwelling Catheter Indwelling Catheter Indwelling Catheter - Exam Head normocephalic Neck supple Lungs clear to auscultation bilaterally no wheezing or crackles Heart regular rate and rhythm S1-S2, no rub or gallop Abdomen is soft nondistended no bowel sounds tender with palpation incision sites Extremities no edema Neuro alert and orientated - Labs CBC & Chem 7: 08/18/18 06:55 08/18/18 06:55 Labs: Abnormal Lab Results - Last 24 Hours (Table) 08/18/18 08/18/18 Range/Units 06:55 06:55 RBC 3.27 L (3.80-5.40) m/uL Hgb 9.6 L (11.4-16.0) gm/dL Hct 31.0 L (34.0-46.0) % MCHC 30.9 L (31.0-37.0) g/dL Lymphocytes # 0.9 L (1.0-4.8) k/uL Chloride 114 H (98-107) mmol/L Total Protein 4.6 L (6.3-8.2) g/dL Albumin 2.5 L (3.5-5.0) g/dL Microbiology - Last 24 Hours (Table) 08/16/18 20:11 Urine Culture - Final Urine,Catheterized Assessment and Plan Assessment: 1. Small bowel obstruction status post exploratory laparotomy with extensive lysis of adhesions. Patient is currently nothing by mouth. And she has been removed approximately by patient. Okay to keep out per surgical services. Continue pain control. Continue epidural. And continue incentive spirometry 2. Mildly elevated lactic acid at Vadim 2.5 we'll repeat lactic acid level. Repeat lactic 1.2 3. Essential hypertension: Hydrochlorothiazide is on hold due to the patient hypotensive. 4. Hyperlipidemia 5. Dementia 6. Nosebleed resolved 7. Urinalysis with trace leukocyte esterase. Patient asymptomatic. Urine culture currently negative 8. Hypotension secondary to pain meds and epidural. Improved with IV fluids. Continue holding HCTZ. Continue IV fluids GI prophylaxis Protonix and DVT prophylaxis subcu heparin Encourage patient to increase activity I performed an examination of the patient and discussed their management with the Nurse Practitioner. I have reviewed the Nurse Practitioner's notes and agree with the documented findings and plan of care
--- NOTE | 2018-08-18 11:53 | P.PN ---
Subjective Progress Note Date: 08/18/18 CHIEF COMPLAINT: Abdominal pain secondary to adhesions HISTORY OF PRESENT ILLNESS: The patient is a 83-year-old female status post extensive lysis of adhesions for bowel obstruction. She reports gurgling of the belly. No reports of abdominal pain. She has an epidural. Patient is not ambulating. She still has Daugherty catheter for urinary retention from epidural catheter. PHYSICAL EXAM: VITAL SIGNS: Reviewed CONSTITUTIONAL: Well developed and in no acute distress. EYES: Conjuctivae without sclera icterus. Extraocular movements grossly intact. HEAD, EARS, NOSE, THROAT: Moist buccal mucosa. Head is atraumatic, normocephalic. Hears conversational speech. No nasal drainage. NECK: Supple. No thyroidomegaly. RESPIRATORY: Non-labored respirations and equal bilateral excursions. CARDIOVASCULAR: Palpable 2+ radial pulses. Regular rate ABDOMEN: Soft. Non-tender. Nondistended. Incisions clean dry and intact with minimal serosanguineous shadowing lower abdomen less than 2 cm in size MUSCULOSKELETAL: No clubbing. No cyanosis. SKIN: Good skin turgor. Well perfused. NEUROLOGIC: Cranial nerves I through XII grossly intact. No focal or lateralizing signs. PSYCH: Appropriate affect. Alert and oriented to person, place and time. CLINCAL LABS: Reviewed ASSESSMENT: 1. Small bowel obstruction secondary to peritoneal adhesions 2. Status post lysis of adhesions PLAN: 1. Recommend ambulation 4 times daily. 2. Otherwise clinically stable. 3. Await bowel function. 4. Continue with mouth swabs and ice chips. Objective - Vital Signs Vital signs: Vital Signs Temp 98.8 F 08/18/18 07:00 Pulse 80 08/18/18 07:00 Resp 18 08/18/18 07:10 BP 151/66 08/18/18 07:00 Pulse Ox 95 08/18/18 07:00 Intake & Output 08/17/18 08/18/18 08/18/18 18:59 06:59 18:59 Intake Total 0 775 Output Total 300 800 Balance -300 -25 Weight 57.7 kg Intake: Intake, IV Titration 775 Amount Sodium Chloride 0.9% 1, 775 000 ml @ 75 mls/hr IV . [id number] [facility] Rx#:[id number] Oral 0 Output: Urine 300 800 Uretheral (Daugherty) 400 Other: Voiding Method Indwelling Catheter Indwelling Catheter Indwelling Catheter - Labs CBC & Chem 7: 08/18/18 06:55 08/18/18 06:55 Labs: Abnormal Lab Results - Last 24 Hours (Table) 08/18/18 08/18/18 Range/Units 06:55 06:55 RBC 3.27 L (3.80-5.40) m/uL Hgb 9.6 L (11.4-16.0) gm/dL Hct 31.0 L (34.0-46.0) % MCHC 30.9 L (31.0-37.0) g/dL Lymphocytes # 0.9 L (1.0-4.8) k/uL Chloride 114 H (98-107) mmol/L Total Protein 4.6 L (6.3-8.2) g/dL Albumin 2.5 L (3.5-5.0) g/dL Microbiology - Last 24 Hours (Table) 08/16/18 20:11 Urine Culture - Final Urine,Catheterized Assessment and Plan (1) Peritoneal adhesions Current Visit: Yes Status: Acute Code(s): K66.0 - PERITONEAL ADHESIONS (POSTPROCEDURAL) (POSTINFECTION) SNOMED Code(s): 99168987 (2) Small bowel obstruction Current Visit: Yes Status: Acute Code(s): K56.609 - UNSP INTESTNL OBST, UNSP TO PARTIAL VERSUS COMPLETE OBST SNOMED Code(s): 277286172
--- NOTE | 2018-08-18 11:53 | P.PN ---
Subjective Progress Note Date: 08/18/18 Patient not ambulating. Still has Daugherty catheter for urinary retention and epidural catheter. Recommend ambulation 4 times daily. Otherwise clinically stable. Await bowel function. Continue with mouth swabs and ice chips. Objective - Vital Signs Vital signs: Vital Signs Temp 98.8 F 08/18/18 07:00 Pulse 80 08/18/18 07:00 Resp 18 08/18/18 07:10 BP 151/66 08/18/18 07:00 Pulse Ox 95 08/18/18 07:00 Intake & Output 08/17/18 08/18/18 08/18/18 18:59 06:59 18:59 Intake Total 0 775 Output Total 300 800 Balance -300 -25 Weight 57.7 kg Intake: Intake, IV Titration 775 Amount Sodium Chloride 0.9% 1, 775 000 ml @ 75 mls/hr IV . [id number] [facility] Rx#:[id number] Oral 0 Output: Urine 300 800 Uretheral (Daugherty) 400 Other: Voiding Method Indwelling Catheter Indwelling Catheter Indwelling Catheter - Labs CBC & Chem 7: 08/18/18 06:55 08/18/18 06:55 Labs: Abnormal Lab Results - Last 24 Hours (Table) 08/18/18 08/18/18 Range/Units 06:55 06:55 RBC 3.27 L (3.80-5.40) m/uL Hgb 9.6 L (11.4-16.0) gm/dL Hct 31.0 L (34.0-46.0) % MCHC 30.9 L (31.0-37.0) g/dL Lymphocytes # 0.9 L (1.0-4.8) k/uL Chloride 114 H (98-107) mmol/L Total Protein 4.6 L (6.3-8.2) g/dL Albumin 2.5 L (3.5-5.0) g/dL Microbiology - Last 24 Hours (Table) 08/16/18 20:11 Urine Culture - Final Urine,Catheterized
[2018-08-18] MEDS: ONDANSETRON 4 MG/2 ML VIAL IVP PRN (16:37)
[2018-08-18] MEDS: FENOFIBRATE 160 MG TAB PO SCH (17:06)
[2018-08-19] MEDS: HEPARIN SODIUM,PORCINE 5,000 UNIT/ML 1 ML VIAL SQ SCH ×4 (01:52→18:53)
[2018-08-19] MEDS: ENALAPRILAT 1.25 MG/ML 1 ML VIAL IVP PRN (02:42)
[2018-08-19] MEDS: SODIUM CHLORIDE 0.9% 1,000 ML IV SCH (03:04)
[2018-08-19 06:59] LABS: Basophils % (A) 0 %; Eosinophils # (A) 0.1 k/uL (0-0.7); Eosinophils % (A) 1 %; HCT 31.4 % (34.0-46.0); Hypochromasia Slight; Lymphocytes # (A) 0.8 k/uL (1.0-4.8); Lymphocytes % (A) 10 %; MCH 30.4 pg (25.0-35.0); MCHC 31.7 g/dL (31.0-37.0); MCV 95.9 fL (80.0-100.0); Mean Platelet Volume 8.4; Monocytes # (A) 0.8 k/uL (0-1.0); Monocytes % (A) 10 %; Neutrophils # (A) 6.6 k/uL (1.3-7.7); Neutrophils % (A) 78 %; Platelet Count 247 k/uL (150-450); RBC 3.27 m/uL (3.80-5.40); RDW 13.2 % (11.5-15.5); WBC 8.4 k/uL (3.8-10.6)
[2018-08-19 07:10] LABS: ALT 19 U/L (9-52); AST 23 U/L (14-36); Albumin 2.4 g/dL (3.5-5.0); Alkaline Phosphatase 57 U/L (38-126); Anion Gap 11 mmol/L; Blood Urea Nitrogen 12 mg/dL (7-17); Calcium 8.6 mg/dL (8.4-10.2); Carbon Dioxide 21 mmol/L (22-30); Chloride 115 mmol/L (98-107); Glucose 93 mg/dL (74-99); Potassium 3.7 mmol/L (3.5-5.1); Sodium 147 mmol/L (137-145); Total Bilirubin 0.8 mg/dL (0.2-1.3); Total Protein 4.7 g/dL (6.3-8.2)
[2018-08-19] MEDS: PANTOPRAZOLE 40 MG/10 ML VIAL IVP SCH (08:10)
[2018-08-19] MEDS: DONEPEZIL 10 MG TAB PO SCH (08:10)
--- NOTE | 2018-08-19 10:54 | P.PN ---
Subjective Progress Note Date: 08/19/18 This is an 83 year old female, a patient of Dr. Molina. She has a known past medical history of dementia, hypertension, hyperlipidemia, GERD and hysterectomy. Patient initially presented to [facility] with abdominal pain and vomiting. Symptoms started 3 days ago. Patient lives on her own and her daughter, Eve helps out with the groceries in [place]. Patient did report she had some vomiting on Monday multiple times. She may have had a small bowel movement yesterday. Patient is a poor historian. She presented to [facility] and they had labs and computed tomography scan of the abdomen completed CT had shown fluid in the peritoneal cavity and increased attenuation of the mesenteric fat which findings could be due to ischemia of the bowel versus accumulation of fluid in the peritoneal cavity. There were mildly distended loops of the small bowel, possible ileus. Mild sclerosis of the left femoral head raising possibility of avascular necrosis. Also right kidney c ortical renal cyst largest of 3.7 cm. White count 10.95 hemoglobin 13 platelets are 228 lipase 111 lactic elevated at 2.5 creatinine 0.9 BUN 16 AST 25 and ALT 28. Patient was transferred to [facility] for further's treatment and care. Surgery has been consulted. Nursing was unable to get NG tube in place patient had nosebleed. Patient denies any fever, chills, sweats. Denies any burning with urination. On 08/15/2018 Patient is alert and oriented 3. NG tube is in place. Patient's stomach is slightly improved per patient. Patients nausea has improved. Awaiting surgical input for plan. At this time patient denies chest pain or shortness of breath. Patient denies any nausea or vomiting. Patient denies any urinary burning or frequency On 08/16/2018 patient is currently resting in bed. Patient's son at bedside. NG tube remains in place. Discussed case with surgical services MARK Oliver. Patient will likely undergo surgery today with Dr. adam for small bowel obstr uction. At this time patient is still having some abdominal pain. Patient denies chest pain or shortness of breath. Patient denies any urinary burning or frequency. All questions were answered 08/17/2018 patient is postop day #1 status post exploratory laparotomy with extensive lysis of adhesions with Dr. Otoole. She tolerated surgery well. She currently has NG tube in place and is nothing by mouth. Yesterday she became hypotensive to be held and she was given fluid boluses. Blood pressures have improved. Pain is controlled. She denies any chest pain or shortness breath. Has not had any bowel movement or passed gas yet. On 08/18/2018 patient is postop day 2 status post exploratory lap with extensive lysis of adhesions. Patient remains on ice chips only. NG has been removed. patient's daughter is at bedside. All questions answered at this time. Blood pressure has improved.. Awaiting surgical services for further advance diet On 08/19/2018 patient is currently postop day 3 status post exploratory lap with extensive lysis of adhesions. Patient is currently resting comfortably in bed. Patient remains ice chips only. Patient is having active bowel sounds but no bowel movement. At this time patient denies chest pain or shortness breath. Patient denies nausea vomiting or diarrhea. Patient denies any urinary burning or frequency. Objective - Vital Signs Vital signs: Vital Signs Temp 98.9 F 08/19/18 02:10 Pulse 85 08/19/18 02:10 Resp 17 08/19/18 02:10 BP 172/72 08/19/18 02:10 Pulse Ox 94 L 08/19/18 02:10 Intake & Output 08/18/18 08/19/18 08/19/18 18:59 06:59 18:59 Intake Total 240.833 Output Total 600 550 Balance -600 -309.167 Intake: Intake, IV Titration 240.833 Amount Ropivacaine 300 mg 90.833 Hydromorphone (Pf) 5 mg In Sodium Chloride 0.9% 190 ml @ Per Protocol EPIDURAL .Q0M PRN Rx#: [id number] Sodium Chloride 0.9% 1, 150 000 ml @ 75 mls/hr IV . [id number] [facility] Rx#:[id number] Output: Urine 600 550 Other: Voiding Method Indwelling Catheter Indwelling Catheter - Exam Head normocephalic Neck supple Lungs clear to auscultation bilaterally no wheezing or crackles Heart regular rate and rhythm S1-S2, no rub or gallop Abdomen is soft nondistended no bowel sounds tender with palpation incision sites Extremities no edema Neuro alert and orientated - Labs CBC & Chem 7: 08/19/18 06:31 08/19/18 00:26 Labs: Abnormal Lab Results - Last 24 Hours (Table) 08/19/18 08/19/18 Range/Units 00:26 06:31 RBC 3.27 L (3.80-5.40) m/uL Hgb 10.0 L (11.4-16.0) gm/dL Hct 31.4 L (34.0-46.0) % Lymphocytes # 0.8 L (1.0-4.8) k/uL Sodium 147 H (137-145) mmol/L Chloride 115 H (98-107) mmol/L Carbon Dioxide 21 L (22-30) mmol/L Creatinine 0.51 L (0.52-1.04) mg/dL Total Protein 4.7 L (6.3-8.2) g/dL Albumin 2.4 L (3.5-5.0) g/dL Assessment and Plan Assessment: 1. Small bowel obstruction status post exploratory laparotomy with extensive lysis of adhesions. Patient is currently nothing by mouth. NG has been removed approximately by patient. Okay to keep out per surgical services. Continue pain control. Continue epidural. continue incentive spirometry. Patient currently has active bowel sounds but no bowel movement. Patient remains nothing by mouth with ice chips only awaiting surgical services input 2. Mildly elevated lactic acid at JAARS 2.5 we'll repeat lactic acid level. Repeat lactic 1.2 3. Essential hypertension 4. Hyperlipidemia 5. Dementia 6. Nosebleed resolved 7. Urinalysis with trace leukocyte esterase. Patient asymptomatic. Urine culture currently negative 8. Hypotension secondary to pain meds and epidural. Resolved GI prophylaxis Protonix and DVT prophylaxis subcu heparin Encourage patient to increase activity I performed an examination of the patient and discussed their management with the Nurse Practitioner. I have reviewed the Nurse Practitioner's notes and agree with the documented findings and plan of care
--- NOTE | 2018-08-19 11:04 | P.PN ---
Progress Note - Text Progress Note Date: 08/18/18 Anesthesia POD 2. Status Post exploratory laparotomy with extensive lysis of adhesions under general endotracheal anesthesia with an epidrual catheter placed at T12 for post surgical pain releif. VAS (0, 3) with Ropivicaine 0.12 % and Dilaudid 20 mcg / cc running at 5 cc / hr. Lower extremity strength (4/4). Site looks OK. Continue epidural with current settings
--- NOTE | 2018-08-19 13:57 | P.PN ---
Subjective Progress Note Date: 08/19/18 CHIEF COMPLAINT: Abdominal pain secondary to adhesions HISTORY OF PRESENT ILLNESS: The patient is a 83-year-old female status post extensive lysis of adhesions for bowel obstruction. Her epidural has been discontinued. She is ambulating the pino with family. No bowel movements. No current flatus. PHYSICAL EXAM: VITAL SIGNS: Reviewed CONSTITUTIONAL: Well developed and in no acute distress. EYES: Conjuctivae without sclera icterus. Extraocular movements grossly intact. HEAD, EARS, NOSE, THROAT: Moist buccal mucosa. Head is atraumatic, normocephalic. Hears conversational speech. No nasal drainage. NECK: Supple. No thyroidomegaly. RESPIRATORY: Non-labored respirations and equal bilateral excursions. CARDIOVASCULAR: Palpable 2+ radial pulses. Regular rate ABDOMEN: Soft. Non-tender. Minimal distention. No peritonitis. No infection. MUSCULOSKELETAL: No clubbing. No cyanosis. SKIN: Good skin turgor. Well perfused. NEUROLOGIC: Cranial nerves I through XII grossly intact. No focal or lateralizing signs. PSYCH: Appropriate affect. Alert and oriented to person, place and time. CLINCAL LABS: Reviewed ASSESSMENT: 1. Small bowel obstruction secondary to peritoneal adhesions 2. Status post lysis of adhesions PLAN: 1. Recommend start off warm beverages. 2. Continue ambulation 4 times daily Objective - Vital Signs Vital signs: Vital Signs Temp 98.4 F 08/19/18 07:18 Pulse 94 08/19/18 07:18 Resp 18 08/19/18 07:18 BP 154/64 08/19/18 07:18 Pulse Ox 94 L 08/19/18 02:10 Intake & Output 08/18/18 08/19/18 08/19/18 18:59 06:59 18:59 Intake Total 240.833 Output Total 600 550 Balance -600 -309.167 Intake: Intake, IV Titration 240.833 Amount Ropivacaine 300 mg 90.833 Hydromorphone (Pf) 5 mg In Sodium Chloride 0.9% 190 ml @ Per Protocol EPIDURAL .Q0M PRN Rx#: [id number] Sodium Chloride 0.9% 1, 150 000 ml @ 75 mls/hr IV . [id number] [facility] Rx#:[id number] Output: Urine 600 550 Other: Voiding Method Indwelling Catheter Indwelling Catheter - Labs CBC & Chem 7: 08/19/18 06:31 08/19/18 00:26 Labs: Abnormal Lab Results - Last 24 Hours (Table) 08/19/18 08/19/18 Range/Units 00:26 06:31 RBC 3.27 L (3.80-5.40) m/uL Hgb 10.0 L (11.4-16.0) gm/dL Hct 31.4 L (34.0-46.0) % Lymphocytes # 0.8 L (1.0-4.8) k/uL Sodium 147 H (137-145) mmol/L Chloride 115 H (98-107) mmol/L Carbon Dioxide 21 L (22-30) mmol/L Creatinine 0.51 L (0.52-1.04) mg/dL Total Protein 4.7 L (6.3-8.2) g/dL Albumin 2.4 L (3.5-5.0) g/dL Assessment and Plan (1) Peritoneal adhesions Current Visit: Yes Status: Acute Code(s): K66.0 - PERITONEAL ADHESIONS (POSTPROCEDURAL) (POSTINFECTION) SNOMED Code(s): 38379119 (2) Small bowel obstruction Current Visit: Yes Status: Acute Code(s): K56.609 - UNSP INTESTNL OBST, UNSP TO PARTIAL VERSUS COMPLETE OBST SNOMED Code(s): 700071611
[2018-08-19] MEDS: SODIUM CHLORIDE 0.45% 1,000 ML IV SCH (14:16)
[2018-08-19] MEDS: FENOFIBRATE 160 MG TAB PO SCH (18:53)
[2018-08-19] MEDS: hydrALAZINE HCL 20 MG/ML 1 ML VIAL IVP PRN (19:53)
[2018-08-19] MEDS: HYDROmorphone 0.5 MG/0.5 ML SYRINGE IVP PRN (22:20)
[2018-08-20] MEDS: SODIUM CHLORIDE 0.45% 1,000 ML IV SCH ×2 (01:50→19:52)
[2018-08-20] MEDS ORDERED: ACETAMINOPHEN TAB 500 MG TAB PO PRN (02:25)
[2018-08-20] MEDS: HEPARIN SODIUM,PORCINE 5,000 UNIT/ML 1 ML VIAL SQ SCH ×3 (02:58→21:59)
[2018-08-20 03:57] LABS: ALT 25 U/L (9-52); AST 18 U/L (14-36); Albumin 2.3 g/dL (3.5-5.0); Alkaline Phosphatase 61 U/L (38-126); Anion Gap 6 mmol/L; Blood Urea Nitrogen 10 mg/dL (7-17); Calcium 8.6 mg/dL (8.4-10.2); Carbon Dioxide 25 mmol/L (22-30); Chloride 111 mmol/L (98-107); Glucose 121 mg/dL (74-99); Potassium 3.1 mmol/L (3.5-5.1); Sodium 142 mmol/L (137-145); Total Bilirubin 0.9 mg/dL (0.2-1.3); Total Protein 4.5 g/dL (6.3-8.2)
[2018-08-20 04:04] LABS: Basophils % (A) 0 %; Eosinophils % (A) 1 %; HCT 30.7 % (34.0-46.0); HGB 9.6 gm/dL (11.4-16.0); Lymphocytes # (A) 0.9 k/uL (1.0-4.8); Lymphocytes % (A) 11 %; MCH 29.2 pg (25.0-35.0); MCHC 31.4 g/dL (31.0-37.0); Mean Platelet Volume 8.8; Monocytes # (A) 0.8 k/uL (0-1.0); Monocytes % (A) 10 %; Neutrophils # (A) 6.4 k/uL (1.3-7.7); Neutrophils % (A) 76 %; Platelet Count 265 k/uL (150-450); RBC 3.31 m/uL (3.80-5.40); RDW 13.4 % (11.5-15.5); WBC 8.4 k/uL (3.8-10.6)
[2018-08-20 05:28] LABS: Color,Urine Yellow
[2018-08-20 05:29] LABS: Appearance,Urine Clear (Clear); Bilirubin,Urine Negative (Negative); Blood,Urine Negative (Negative); Glucose,Urine (UA) Negative (Negative); Ketones,Urine 1+ (Negative); Leukocyte Esterase,Urine Negative (Negative); Nitrite,Urine Negative (Negative); Protein,Urine 1+ (Negative); Urobilinogen,Urine <2.0 mg/dL (<2.0)
[2018-08-20] MEDS ORDERED: HYDROcodone/APAP 5-325MG 1 EACH TAB PO PRN (08:53)
[2018-08-20] MEDS: PANTOPRAZOLE 40 MG/10 ML VIAL IVP SCH (10:48)
[2018-08-20] MEDS: DONEPEZIL 10 MG TAB PO SCH (10:50)
[2018-08-20] MEDS: HYDROCHLOROTHIAZIDE 12.5 MG CAP PO SCH (10:50)
[2018-08-20] MEDS: ENALAPRILAT 1.25 MG/ML 1 ML VIAL IVP PRN (10:55)
[2018-08-20] MEDS ORDERED: POTASSIUM CHLORIDE ER 20 MEQ TAB.ER PO STA (11:03)
--- NOTE | 2018-08-20 11:23 | P.PN ---
Subjective Progress Note Date: 08/20/18 CHIEF COMPLAINT: Small bowel obstruction HISTORY OF PRESENT ILLNESS: S/P exploratory laparotomy with extensive lysis of adhesions. POD #4. Patient seen and examined this morning at the bedside. No family present. Patient is awake and alert. Patient denies abdominal pain. Denies nausea or vomiting. Patient unable to report if shes passing flatus or last BM. Per EMR, patient had a BM last night, but nursing unable to confirm. WBC 8.4. Hemoglobin 9.6. PHYSICAL EXAM: VITAL SIGNS: Reviewed. GENERAL: Well-developed in no acute distress. HEENT: No sclera icterus. Extraocular movements grossly intact. Moist buccal mucosa. Head is atraumatic, normocephalic. ABDOMEN: Positive bowel sounds. Mild distention. Dressing to midline incision with small amount of old bloody drainage. NEUROLOGIC: Alert and oriented. Cranial nerves II through XII grossly intact. ASSESSMENT: 1. Small bowel obstruction, complete, s/p exploratory laparotomy with extensive lysis of adhesions PLAN: 1. Due to inability to confirm if patient had a BM and patient being unsure if she is passing flatus, we will continue clear liquid diet at this time. We reassess this afternoon for possible advancement of diet to full liquid 2. Activity as tolerated. Patient encouraged to be OOB and up in chair. Encourage ambulation. 3. Incentive spirometry 4. Attempt to reduce IV narcotics given. Will begin [place] PRN. Nurse practitioner note has been reviewed by physician. Signing provider agrees with the documented findings, assessment, and plan of care. Objective - Vital Signs Vital signs: Vital Signs Temp 98 F 08/20/18 07:47 Pulse 83 08/20/18 07:47 Resp 16 08/20/18 07:47 BP 167/69 08/20/18 07:47 Pulse Ox 96 08/20/18 07:47 Intake & Output 08/19/18 08/20/18 08/20/18 18:59 06:59 18:59 Intake Total 1300 Output Total 700 700 Balance -700 600 Intake: Intake, IV Titration 900 Amount Sodium Chloride 0.45% 1, 900 000 ml @ 75 mls/hr IV . [id number] [facility] Rx#:[id number] Oral 400 Output: Urine 700 700 Uretheral (Daugherty) 700 Other: # Voids 1 # Bowel Movements 1 - Labs CBC & Chem 7: 08/20/18 03:12 08/20/18 03:12 Labs: Abnormal Lab Results - Last 24 Hours (Table) 08/20/18 08/20/18 08/20/18 Range/Units 03:12 03:12 04:45 RBC 3.31 L (3.80-5.40) m/uL Hgb 9.6 L (11.4-16.0) gm/dL Hct 30.7 L (34.0-46.0) % Lymphocytes # 0.9 L (1.0-4.8) k/uL Potassium 3.1 L (3.5-5.1) mmol/L Chloride 111 H (98-107) mmol/L Creatinine 0.41 L (0.52-1.04) mg/dL Glucose 121 H (74-99) mg/dL Total Protein 4.5 L (6.3-8.2) g/dL Albumin 2.3 L (3.5-5.0) g/dL Urine Protein 1+ H (Negative) Urine Ketones 1+ H (Negative)
[2018-08-20] MEDS ORDERED: ACETAMINOPHEN TAB 325 MG TAB PO PRN (11:39)
--- NOTE | 2018-08-20 13:39 | P.PN ---
Subjective Progress Note Date: 08/20/18 This is an 83 year old female, a patient of Dr. Molina. She has a known past medical history of dementia, hypertension, hyperlipidemia, GERD and hysterectomy. Patient initially presented to [facility] with abdominal pain and vomiting. Symptoms started 3 days ago. Patient lives on her own and her daughter, Eve helps out with the groceries in [employer]. Patient did report she had some vomiting on Monday multiple times. She may have had a small bowel movement yesterday. Patient is a poor historian. She presented to [facility] and they had labs and computed tomography scan of the abdomen completed CT had shown fluid in the peritoneal cavity and increased attenuation of the mesenteric fat which findings could be due to ischemia of the bowel versus accumulation of fluid in the peritoneal cavity. There were mildly distended loops of the small bowel, possible ileus. Mild sclerosis of the left femoral head raising possibility of avascular necrosis. Also right kidney cortical renal cyst largest of 3.7 cm. White count 10.95 hemoglobin 13 platelets are 228 lipase 111 lactic elevated at 2.5 creatinine 0.9 BUN 16 AST 25 and ALT 28. Patient was transferred to [facility] for further's treatment and care. Surgery has been consulted. Nursing was unable to get NG tube in place patient had nosebleed. Patient denies any fever, chills, sweats. Denies any burning with urination. On 08/15/2018 Patient is alert and oriented 3. NG tube is in place. Patient's stomach is slightly improved per patient. Patients nausea has improved. Awaiting surgical input for plan. At this time patient denies chest pain or shortness of breath. Patient denies any nausea or vomiting. Patient denies any urinary burning or frequency On 08/16/2018 patient is currently resting in bed. Patient's son at bedside. NG tube remains in place. Discussed case with surgical services MARK Oliver. Patient will likely undergo surgery today with Dr. adam for small bowel obst ruction. At this time patient is still having some abdominal pain. Patient denies chest pain or shortness of breath. Patient denies any urinary burning or frequency. All questions were answered 08/17/2018 patient is postop day #1 status post exploratory laparotomy with extensive lysis of adhesions with Dr. Otoole. She tolerated surgery well. She currently has NG tube in place and is nothing by mouth. Yesterday she became hypotensive to be held and she was given fluid boluses. Blood pressures have improved. Pain is controlled. She denies any chest pain or shortness breath. Has not had any bowel movement or passed gas yet. On 08/18/2018 patient is postop day 2 status post exploratory lap with extensive lysis of adhesions. Patient remains on ice chips only. NG has been removed. patient's daughter is at bedside. All questions answered at this time. Blood pressure has improved.. Awaiting surgical services for further advance diet On 08/19/2018 patient is currently postop day 3 status post exploratory lap with extensive lysis of adhesions. Patient is currently resting comfortably in bed. Patient remains ice chips only. Patient is having active bowel sounds but no lonny wel movement. At this time patient denies chest pain or shortness breath. Patient denies nausea vomiting or diarrhea. Patient denies any urinary burning or frequency. 08/20/2018 over the weekend patient had pulled out her NG tube. She is belching. It is unclear if she is passing any gas from below. So far no bowel movement reported. Surgical service has started a clear liquid diet. Patient is no vomiting. Denies any chest pain or shortness of breath. Showing evidence of urinary retention Daugherty catheter has to be reinserted. Low-grade temp of 99.1 Objective - Vital Signs Vital signs: Vital Signs Temp 98 F 08/20/18 07:47 Pulse 83 08/20/18 07:47 Resp 16 08/20/18 07:47 BP 167/69 08/20/18 07:47 Pulse Ox 96 08/20/18 07:47 Intake & Output 08/19/18 08/20/18 08/20/18 18:59 06:59 18:59 Intake Total 1300 Output Total 700 700 10 Balance -700 600 -10 Intake: Intake, IV Titration 900 Amount Sodium Chloride 0.45% 1, 900 000 ml @ 75 mls/hr IV . [id number] [facility] Rx#:[id number] Oral 400 Output: Urine 700 700 10 Uretheral (Daugherty) 700 Other: # Voids 1 # Bowel Movements 1 - Exam Head normocephalic Neck supple Lungs clear to auscultation bilaterally no wheezing or crackles Heart regular rate and rhythm S1-S2, no rub or gallop Abdomen is soft nondistended no bowel sounds tender with palpation incision sites Extremities no edema Neuro awake and alert sitting at bedside chair. Still confused - Labs CBC & Chem 7: 08/20/18 03:12 08/20/18 03:12 Labs: Abnormal Lab Results - Last 24 Hours (Table) 08/20/18 08/20/18 08/20/18 Range/Units 03:12 03:12 04:45 RBC 3.31 L (3.80-5.40) m/uL Hgb 9.6 L (11.4-16.0) gm/dL Hct 30.7 L (34.0-46.0) % Lymphocytes # 0.9 L (1.0-4.8) k/uL Potassium 3.1 L (3.5-5.1) mmol/L Chloride 111 H (98-107) mmol/L Creatinine 0.41 L (0.52-1.04) mg/dL Glucose 121 H (74-99) mg/dL Total Protein 4.5 L (6.3-8.2) g/dL Albumin 2.3 L (3.5-5.0) g/dL Urine Protein 1+ H (Negative) Urine Ketones 1+ H (Negative) Assessment and Plan Assessment: 1. Small bowel obstruction status post exploratory laparotomy with extensive lysis of adhesions. Patient with her own NG tube out weekend. Surgery service has start patient on a clear liquid diet 2. Mildly elevated lactic acid at [place] 2.5 we'll repeat lactic acid level. Repeat lactic 1.2 3. Essential hypertension: Patient's hydrochlorothiazide was restarted. Stop elevated blood pressure she has IV Vasotec and IV hydralazine on board. 4. Hyperlipidemia 5. Dementia 6. Nosebleed resolved 7. UTI ruled out urine culture negative 8. Hypotension secondary to pain meds and epidural. Resolved 9. Urinary retention. Daugherty catheter has to be reinserted GI prophylaxis Protonix and DVT prophylaxis subcu heparin Encourage patient to increase activity I performed an examination of the patient and discussed their management with the physician Offshore Diver. I have reviewed the Physician Offshore Diver's notes and agree with the documented findings and plan of care
[2018-08-20] MEDS: METOCLOPRAMIDE 5 MG/ML 2 ML VIAL IVP SCH ×2 (13:58→19:51)
[2018-08-20] MEDS ORDERED: diphenhydrAMINE 25 MG CAP PO PRN (15:28)
[2018-08-20] MEDS: FENOFIBRATE 160 MG TAB PO SCH (19:51)
[2018-08-21] MEDS: METOCLOPRAMIDE 5 MG/ML 2 ML VIAL IVP SCH ×4 (00:23→17:22)
[2018-08-21] MEDS: SODIUM CHLORIDE 0.45% 1,000 ML IV SCH ×2 (06:03→07:53)
[2018-08-21] MEDS: HYDROCHLOROTHIAZIDE 12.5 MG CAP PO SCH (07:46)
[2018-08-21] MEDS: DONEPEZIL 10 MG TAB PO SCH (07:47)
[2018-08-21] MEDS: PANTOPRAZOLE 40 MG TABLET PO SCH (07:47)
[2018-08-21] MEDS: HEPARIN SODIUM,PORCINE 5,000 UNIT/ML 1 ML VIAL SQ SCH ×2 (07:52→17:22)
[2018-08-21 08:26] LABS: Basophils % (A) 0 %; Eosinophils # (A) 0.2 k/uL (0-0.7); Eosinophils % (A) 2 %; HCT 27.2 % (34.0-46.0); HGB 8.9 gm/dL (11.4-16.0); Hypochromasia Slight; Lymphocytes # (A) 1.1 k/uL (1.0-4.8); Lymphocytes % (A) 16 %; MCH 30.3 pg (25.0-35.0); MCHC 32.6 g/dL (31.0-37.0); MCV 93.1 fL (80.0-100.0); Mean Platelet Volume 9.7; Monocytes # (A) 0.6 k/uL (0-1.0); Monocytes % (A) 9 %; Neutrophils % (A) 71 %; Platelet Count 273 k/uL (150-450); RBC 2.93 m/uL (3.80-5.40); RDW 13.5 % (11.5-15.5)
--- NOTE | 2018-08-21 08:48 | P.PN ---
Subjective Progress Note Date: 08/21/18 CHIEF COMPLAINT: Small bowel obstruction HISTORY OF PRESENT ILLNESS: S/P exploratory laparotomy with extensive lysis of adhesions. POD #5. Patient seen and examined this morning at the bedside. No family present. Patient is awake and alert. Patient denies abdominal pain. Denies nausea or vomiting. Patient had a few liquid bowel movements overnight. Patient assisted to the chair this morning with standby assistance. Gait steady. PHYSICAL EXAM: VITAL SIGNS: Reviewed. GENERAL: Well-developed in no acute distress. HEENT: No sclera icterus. Extraocular movements grossly intact. Moist buccal mucosa. Head is atraumatic, normocephalic. ABDOMEN: Positive bowel sounds. Nondistended. Dressing to midline incision with small amount of old bloody drainage. NEUROLOGIC: Alert and oriented. Cranial nerves II through XII grossly intact. ASSESSMENT: 1. Small bowel obstruction, complete, s/p exploratory laparotomy with extensive lysis of adhesions PLAN: 1. Continue clear liquids at this time. Anticipate advancing diet this afternoon to full liquids. 2. Activity as tolerated. Patient encouraged to be OOB and up in chair. Encourage ambulation. 3. Incentive spirometry Nurse practitioner note has been reviewed by physician. Signing provider agrees with the documented findings, assessment, and plan of care. Objective - Vital Signs Vital signs: Vital Signs Temp 99.0 F 08/21/18 07:23 Pulse 78 08/21/18 07:23 Resp 15 08/21/18 07:23 BP 136/68 08/21/18 07:23 Pulse Ox 97 08/21/18 07:23 Intake & Output 08/20/18 08/21/18 08/21/18 18:59 06:59 18:59 Intake Total 300 Output Total 10 Balance -10 300 Weight 57.7 kg Intake: Intake, IV Titration 300 Amount Sodium Chloride 0.45% 1, 300 000 ml @ 75 mls/hr IV . [id number] [facility] Rx#:[id number] Output: Urine 10 Other: Voiding Method Indwelling Catheter Indwelling Catheter # Voids 500 # Bowel Movements 1 - Labs CBC & Chem 7: 08/21/18 07:25 08/20/18 03:12 Labs: Abnormal Lab Results - Last 24 Hours (Table) 08/21/18 Range/Units 07:25 RBC 2.93 L (3.80-5.40) m/uL Hgb 8.9 L (11.4-16.0) gm/dL Hct 27.2 L (34.0-46.0) % Microbiology - Last 24 Hours (Table) 08/20/18 03:12 Blood Culture - Preliminary Blood No Growth after 24 hours
[2018-08-21 08:52] LABS: ALT 29 U/L (9-52); AST 23 U/L (14-36); Albumin 2.2 g/dL (3.5-5.0); Alkaline Phosphatase 55 U/L (38-126); Anion Gap 6 mmol/L; Blood Urea Nitrogen 12 mg/dL (7-17); Calcium 8.2 mg/dL (8.4-10.2); Carbon Dioxide 24 mmol/L (22-30); Chloride 109 mmol/L (98-107); Glucose 96 mg/dL (74-99); Potassium 3.3 mmol/L (3.5-5.1); Sodium 139 mmol/L (137-145); Total Bilirubin 0.8 mg/dL (0.2-1.3); Total Protein 4.3 g/dL (6.3-8.2)
[2018-08-21] MEDS ORDERED: POTASSIUM CHLORIDE ER 20 MEQ TAB.ER PO STA (10:43)
[2018-08-21] MEDS ORDERED: Magnesium Replacement Protocol 1 EACH MISC MISCELLANE PRN (11:10)
--- NOTE | 2018-08-21 11:19 | P.PN ---
Subjective Progress Note Date: 08/21/18 This is an 83 year old female, a patient of Dr. Molina. She has a known past medical history of dementia, hypertension, hyperlipidemia, GERD and hysterectomy. Patient initially presented to [facility] with abdominal pain and vomiting. Symptoms started 3 days ago. Patient lives on her own and her daughter, Eve helps out with the groceries in [employer]. Patient did report she had some vomiting on Monday multiple times. She may have had a small bowel movement yesterday. Patient is a poor historian. She presented to [facility] and they had labs and computed tomography scan of the abdomen completed CT had shown fluid in the peritoneal cavity and increased attenuation of the mesenteric fat which findings could be due to ischemia of the bowel versus accumulation of fluid in the peritoneal cavity. There were mildly distended loops of the small bowel, possible ileus. Mild sclerosis of the left femoral head raising possibility of avascular necrosis. Also right kidney cortical renal cyst largest of 3.7 cm. White count 10.95 hemoglobin 13 platelets are 228 lipase 111 lactic elevated at 2.5 creatinine 0.9 BUN 16 AST 25 and ALT 28. Patient was transferred to [facility] for further's treatment and care. Surgery has been consulted. Nursing was unable to get NG tube in place patient had nosebleed. Patient denies any fever, chills, sweats. Denies any burning with urination. On 08/15/2018 Patient is alert and oriented 3. NG tube is in place. Patient's stomach is slightly improved per patient. Patients nausea has improved. Awaiting surgical input for plan. At this time patient denies chest pain or shortness of breath. Patient denies any nausea or vomiting. Patient denies any urinary burning or frequency On 08/16/2018 patient is currently resting in bed. Patient's son at bedside. NG tube remains in place. Discussed case with surgical services MARK Oliver. Patient will likely undergo surgery today with Dr. adam for small bowel obst ruction. At this time patient is still having some abdominal pain. Patient denies chest pain or shortness of breath. Patient denies any urinary burning or frequency. All questions were answered 08/17/2018 patient is postop day #1 status post exploratory laparotomy with extensive lysis of adhesions with Dr. Otoole. She tolerated surgery well. She currently has NG tube in place and is nothing by mouth. Yesterday she became hypotensive to be held and she was given fluid boluses. Blood pressures have improved. Pain is controlled. She denies any chest pain or shortness breath. Has not had any bowel movement or passed gas yet. On 08/18/2018 patient is postop day 2 status post exploratory lap with extensive lysis of adhesions. Patient remains on ice chips only. NG has been removed. patient's daughter is at bedside. All questions answered at this time. Blood pressure has improved.. Awaiting surgical services for further advance diet On 08/19/2018 patient is currently postop day 3 status post exploratory lap with extensive lysis of adhesions. Patient is currently resting comfortably in bed. Patient remains ice chips only. Patient is having active bowel sounds but no lonny wel movement. At this time patient denies chest pain or shortness breath. Patient denies nausea vomiting or diarrhea. Patient denies any urinary burning or frequency. 08/20/2018 over the weekend patient had pulled out her NG tube. She is belching. It is unclear if she is passing any gas from below. So far no bowel movement reported. Surgical service has started a clear liquid diet. Patient is no vomiting. Denies any chest pain or shortness of breath. Showing evidence of urinary retention Daugherty catheter has to be reinserted. Low-grade temp of 99.1 08/21/2018 patient was able to have multiple bowel movements. Denies any nausea or vomiting. Surgical service is planning to advance to full liquid diet later today. Potassium low at 3.3 magnesium low at 1.6 they are being replaced. Patient sitting in bedside chair. Denies any pain at this time. Denies any chest pain or shortness of breath. Has Daugherty catheter in place. Urine is slightly orangeish. Denies any nausea or vomiting. Patient has been up and ambulating with physical therapy in the hallway. Objective - Vital Signs Vital signs: Vital Signs Temp 99.0 F 08/21/18 07:23 Pulse 78 08/21/18 07:47 Resp 15 08/21/18 07:47 BP 136/68 08/21/18 07:23 Pulse Ox 97 08/21/18 07:23 Intake & Output 08/20/18 08/21/18 08/21/18 18:59 06:59 18:59 Intake Total 300 Output Total 10 Balance -10 300 Weight 57.7 kg Intake: Intake, IV Titration 300 Amount Sodium Chloride 0.45% 1, 300 000 ml @ 75 mls/hr IV . [id number] [facility] Rx#:[id number] Output: Urine 10 Other: Voiding Method Indwelling Catheter Indwelling Catheter Indwelling Catheter # Voids 500 # Bowel Movements 1 - Exam Head normocephalic Neck supple Lungs clear to auscultation bilaterally no wheezing or crackles Heart regular rate and rhythm S1-S2, no rub or gallop Abdomen is soft nondistended positive bowel sounds Extremities no edema Neuro awake and alert sitting at bedside chair. Still confused - Labs CBC & Chem 7: 08/21/18 07:25 08/21/18 07:25 Labs: Abnormal Lab Results - Last 24 Hours (Table) 08/21/18 08/21/18 Range/Units 07:25 07:25 RBC 2.93 L (3.80-5.40) m/uL Hgb 8.9 L (11.4-16.0) gm/dL Hct 27.2 L (34.0-46.0) % Potassium 3.3 L (3.5-5.1) mmol/L Chloride 109 H (98-107) mmol/L Creatinine 0.44 L (0.52-1.04) mg/dL Calcium 8.2 L (8.4-10.2) mg/dL Total Protein 4.3 L (6.3-8.2) g/dL Albumin 2.2 L (3.5-5.0) g/dL Microbiology - Last 24 Hours (Table) 08/20/18 03:12 Blood Culture - Preliminary Blood No Growth after 24 hours Assessment and Plan Assessment: 1. Small bowel obstruction status post exploratory laparotomy with extensive lysis of adhesions. NG tube is out. Patient having bowel movements. Surgical service is planning to advance diet to a full liquid diet 2. Mildly elevated lactic acid at [place] 2.5 we'll repeat lactic acid level. Repeat lactic 1.2 3. Essential hypertension: Patient's hydrochlorothiazide was restarted. Stop elevated blood pressure she has IV Vasotec and IV hydralazine on board. Blood pressures have shown improvement 4. Hyperlipidemia 5. Dementia 6. Nosebleed resolved 7. UTI ruled out urine culture negative 8. Hypotension secondary to pain meds and epidural. Resolved 9. Urinary retention. Daugherty catheter has to be reinserted. Urinalysis from yesterday is negative 10. Hypokalemia and hypomagnesemia patient receiving supplements. Repeat labs in a.m. 11. Anemia hemoglobin 8.9. No evidence of active bleeding. Possibly diluted from IV fluids and malnutrition. We'll check iron studies 12. Severe protein calorie malnutrition albumin 2.2. Continue ensure drinks GI prophylaxis Protonix and DVT prophylaxis subcu heparin Encourage patient to increase activity I performed an examination of the patient and discussed their management with the physician Boiler Reliner. I have reviewed the Physician Boiler Reliner's notes and agree with the documented findings and plan of care
[2018-08-21] MEDS: MAGNESIUM SULFATE-D5W PMX 1 GM in DEXTROSE/WATER 1 100ML.BAG IVPB SCH ×2 (11:52→13:41)
--- NOTE | 2018-08-21 12:27 | CDI ---
Documentation Clarification Form Date: 08/21/2018 11:57:09 AM From: Shelbie Clark RN, CCDS Admit Date: 08/14/2018 3:08:00 PM Patient Name: Sumi Hunt Visit Number: [id number] Discharge Date: ATTENTION: The Clinical Documentation Specialists (CDI) and [facility] Coding Staff appreciate your assistance in clarifying documentation. Please respond to the clarification below the line at the bottom and electronically sign. The CDI & [facility] Coding staff will review the response and follow-up if needed. Please note: Queries are made part of the Legal Health Record. If you have any questions, please contact the author of this message via ITS. Dr. Melina Barron Urinary retention is documented in the progress notes starting on 08/21/18 Patients Admitting Diagnosis: Small Bowel Obstruction Post-Operative Diagnosis: Small Bowel Obstruction secondary to adhesions Procedure performed: Exploratory Lapartomy with extensive lysis of adhesiions. History/Risk Factors: Hypertension, GERD, Hyperlipidemia, Dementia, Former smoker Clinical Indicators: Starting on 08/16/18 at 18:48 an Indwelling Daugherty catheter is documented, and is ongoing to 08/21/18: On 08/18/18 Still has Daugherty catheter for urinary retention is noted per surgery. Patient had denied any urinary burning or frequency prior to insertion. She is post operative day # 5 from Exploratory Laparotomy with extensive lysis of adhesiions. UA Culture: Negative Treatment: Moniitor I/O IV Fluids In order to accurately reflect this patients severity of illness, please clarify if the urinary retention diagnosis is: An expected post-procedural or post-surgical condition An unexpected post-procedural or post-surgical condition related to surgical care Other, please specify Clinically Unable to determine (Last Revision: August 2017) clinically unable to determine MTDD
--- NOTE | 2018-08-21 16:29 | P.CONS ---
History of Present Illness - Chief Complaint Medical debility - History of Present Illness I had the opportunity to see patient for inpatient rehab consultation with regard to medical debility. She was admitted to [facility] August 14 with acute abdominal pain. Abdominal x-ray consistent with small bowel obstruction. Seen by Dr. adam who did perform exploratory laparotomy with repair. Patient apparently passed stool today. Seen by therapies. PT reports minimal assistance for bed mobility and transfers. Supervision for gait 150 feet with roller walker but with limited endurance. OT reports supervision for upper dressing and minimal assistance for lower dressing, bathing, toileting and functional mobility. Previous functional history as elicited from patient and daughter: 83-year-old right-handed white female who is lives in a 1 floor home, with basement, alone. Retired. Patient independent with cooking, laundry, standing shower and gait without device. Laundry is now in first-floor. History of smoking as a teenager, doesn't smoke or drink currently. Dr. Rogerg his regular physician. Family history of both parents were smokers. Review of Systems Review of systems: ENT: Denies sneezes or discharge. Eyes: Denies discharge or photophobia. Cardiac: Denies chest pain or palpitation. Pulmonary: Denies cough or shortness of breath. Breast: Denies discharge or lumps. Gastrointestinal: Very mild abdominal discomfort, much improved. Genitourinary: Denies discharge or frequency. Musculoskeletal: Denies muscle or bone aches. Neurologic: At least mild generalized weakness. Endocrine: Denies shakes or sweats. Oncology: Denies cancers. Dermatologic: Denies rash, itching, pruritus. ALLERGY/immunology: Denies sneezes, rashes. Past Medical History Past Medical History: GERD/Reflux, Hyperlipidemia, Hypertension Additional Past Medical History / Comment(s): dementia History of Any Multi-Drug Resistant Organisms: None Reported Past Surgical History: Hysterectomy, Orthopedic Surgery Additional Past Surgical History / Comment(s): left hip Past Anesthesia/Blood Transfusion Reactions: No Reported Reaction Past Psychological History: No Psychological Hx Reported Smoking Status: Former smoker Past Alcohol Use History: None Reported Past Drug Use History: None Reported - Past Family History Daughter(s) Family Medical History: No Reported History Mother Family Medical History: Coronary Artery Disease (CAD), Myocardial Infarction ([place]) Medications and Allergies Home Medications Medication Instructions Recorded Confirmed Type Donepezil [Aricept] 10 mg PO DAILY 08/14/18 08/14/18 History Fenofibrate 80 mg PO PC-SUPPER 08/14/18 08/14/18 History Hydrochlorothiazide 12.5 mg PO DAILY 08/14/18 08/14/18 History Allergies Allergy/AdvReac Type Severity Reaction Status Date / Time No Known Allergies Allergy Verified 08/16/18 13:46 Physical Exam Vitals: Vital Signs Temp Pulse Resp BP BP Pulse Ox 08/21/18 14:15 98.5 F 77 14 151/74 97 08/21/18 07:47 78 15 08/21/18 07:23 99.0 F 78 15 136/68 97 08/21/18 04:00 16 08/21/18 01:35 99.6 F 87 17 127/66 95 08/21/18 00:00 15 08/20/18 20:12 98.2 F 83 16 117/65 08/20/18 19:35 83 16 117/65 97 Intake and Output 08/21/18 08/21/18 08/21/18 06:59 14:59 22:59 Intake Total 100 Output Total 540 Balance -440 Intake: Intake, IV Titration 100 Amount Magnesium Sulfate-D5w Pmx 100 1 gm In Dextrose/Water 1 100ml.bag @ 100 mls/hr IVPB Q1H [facility] Rx#: [id number] Output: Urine 540 Other: Voiding Method Indwelling Catheter # Voids 500 # Bowel Movements 1 Skin: Good color, texture, turgor. General: Medium build and comfortable appearance. Head: Normocephalic, atraumatic. Eyes: Symmetric. Pupils equal round. Ears: Symmetric. Hearing within normal limits. Mouth: Clear. Neck: Supple. Carotid without bruit. Cardiac: Regular rate and rhythm. Lungs: Clear anteriorly and posteriorly. Abdomen: Soft active nontender. Extremities: Normal tone. Neurological: Mental status: Alert, cooperative, pleasant. Cranial nerves: Symmetric facial tone and trapezius. Motor: Active movement all 4 limbs. Sensation: Intact throughout. DTRs: Symmetric and equal throughout. Mobility: Sits with physical assistance. Results CBC & Chem 7: 08/21/18 07:25 08/21/18 07:25 Labs: Abnormal Lab Results - Last 24 Hours (Table) 08/21/18 08/21/18 Range/Units 07:25 07:25 RBC 2.93 L (3.80-5.40) m/uL Hgb 8.9 L (11.4-16.0) gm/dL Hct 27.2 L (34.0-46.0) % Potassium 3.3 L (3.5-5.1) mmol/L Chloride 109 H (98-107) mmol/L Creatinine 0.44 L (0.52-1.04) mg/dL Calcium 8.2 L (8.4-10.2) mg/dL Total Protein 4.3 L (6.3-8.2) g/dL Albumin 2.2 L (3.5-5.0) g/dL Microbiology - Last 24 Hours (Table) 08/20/18 03:12 Blood Culture - Preliminary Blood No Growth after 24 hours Assessment and Plan (1) Small bowel obstruction Current Visit: Yes Status: Acute Code(s): K56.609 - UNSP INTESTNL OBST, UNSP TO PARTIAL VERSUS COMPLETE OBST SNOMED Code(s): 160135841 Plan: Impression: 1. Medical debility. 2. Small bowel obstruction, status post lysis of adhesions. 3. Hypertension. 4. Dyslipidemia. 5. GERD. Comments and plan: At this time patient started PT and OT. Safety concerns noted as demonstrated ability tolerate and benefit from therapies. Have discussed possible inpatient rehab with patient and daughter, both seem agreeable.
[2018-08-21 16:33] LABS: Iron Saturation 10.15 (12.00-45.00)
[2018-08-21] MEDS: FENOFIBRATE 160 MG TAB PO SCH (17:21)
[2018-08-21] MEDS: ENALAPRILAT 1.25 MG/ML 1 ML VIAL IVP PRN (21:41)
[2018-08-22] MEDS: HEPARIN SODIUM,PORCINE 5,000 UNIT/ML 1 ML VIAL SQ SCH ×3 (00:04→17:41)
[2018-08-22] MEDS: METOCLOPRAMIDE 5 MG/ML 2 ML VIAL IVP SCH ×4 (00:04→17:41)
[2018-08-22] MEDS: SODIUM CHLORIDE 0.45% 1,000 ML IV SCH ×2 (00:11→13:35)
[2018-08-22 01:58] VITALS: RESP 16
[2018-08-22 07:35] LABS: Basophils % (A) 0 %; Eosinophils # (A) 0.2 k/uL (0-0.7); Eosinophils % (A) 3 %; HGB 9.2 gm/dL (11.4-16.0); Lymphocytes # (A) 1.1 k/uL (1.0-4.8); Lymphocytes % (A) 15 %; MCH 29.5 pg (25.0-35.0); MCHC 31.8 g/dL (31.0-37.0); MCV 92.7 fL (80.0-100.0); Mean Platelet Volume 8.8; Monocytes # (A) 0.6 k/uL (0-1.0); Monocytes % (A) 8 %; Neutrophils # (A) 5.5 k/uL (1.3-7.7); Neutrophils % (A) 72 %; Platelet Count 322 k/uL (150-450); RBC 3.12 m/uL (3.80-5.40); RDW 13.3 % (11.5-15.5); WBC 7.7 k/uL (3.8-10.6)
[2018-08-22 07:56] LABS: ALT 34 U/L (9-52); AST 41 U/L (14-36); Albumin 2.1 g/dL (3.5-5.0); Alkaline Phosphatase 69 U/L (38-126); Anion Gap 3 mmol/L; Blood Urea Nitrogen 7 mg/dL (7-17); Carbon Dioxide 27 mmol/L (22-30); Chloride 108 mmol/L (98-107); Glucose 104 mg/dL (74-99); Magnesium 1.7 mg/dL (1.6-2.3); Potassium 3.3 mmol/L (3.5-5.1); Sodium 138 mmol/L (137-145); Total Bilirubin 0.6 mg/dL (0.2-1.3); Total Protein 4.3 g/dL (6.3-8.2)
[2018-08-22] MEDS ORDERED: Potassium Replacement Protocol 1 EACH MISC MISCELLANE PRN (08:42)
[2018-08-22] MEDS: HYDROCHLOROTHIAZIDE 12.5 MG CAP PO SCH (08:45)
[2018-08-22] MEDS: PANTOPRAZOLE 40 MG TABLET PO SCH (08:45)
[2018-08-22] MEDS: DONEPEZIL 10 MG TAB PO SCH (08:46)
[2018-08-22] MEDS: POTASSIUM CHLORIDE ER 20 MEQ TAB.ER PO SCH ×3 (08:48→20:59)
--- NOTE | 2018-08-22 09:54 | P.PN ---
Subjective Progress Note Date: 08/22/18 CHIEF COMPLAINT: Small bowel obstruction HISTORY OF PRESENT ILLNESS: S/P exploratory laparotomy with extensive lysis of adhesions. POD #6. Patient seen and examined this morning at the bedside. No family present. Patient is awake and alert. Sitting in the chair. She denies nausea or vomiting. Patient drank her mild and a yogurt this morning. Patient with multiple bowel movements yesterday. Patient worked with PT yesterday and was ambulating in the hallway. Patient about to work with PT at the time of my evaluation. PHYSICAL EXAM: VITAL SIGNS: Reviewed. GENERAL: Well-developed in no acute distress. HEENT: No sclera icterus. Extraocular movements grossly intact. Moist buccal mucosa. Head is atraumatic, normocephalic. ABDOMEN: Positive bowel sounds. Nondistended. Dressing to midline incision with small amount of old bloody drainage. NEUROLOGIC: Alert and oriented. Cranial nerves II through XII grossly intact. ASSESSMENT: 1. Small bowel obstruction, complete, s/p exploratory laparotomy with extensive lysis of adhesions PLAN: 1. Advance diet as tolerated 2. Activity as tolerated. Patient encouraged to be OOB and up in chair. Encourage ambulation. PT on consult 3. Incentive spirometry Nurse practitioner note has been reviewed by physician. Signing provider agrees with the documented findings, assessment, and plan of care. Objective - Vital Signs Vital signs: Vital Signs Temp 99.0 F 08/22/18 08:46 Pulse 82 08/22/18 08:46 Resp 16 08/22/18 08:46 BP 137/69 08/22/18 08:46 Pulse Ox 93 L 08/22/18 08:46 Intake & Output 08/21/18 08/22/18 08/22/18 18:59 06:59 18:59 Intake Total 100 Output Total 1190 1350 Balance -1090 -1350 Intake: Intake, IV Titration 100 Amount Magnesium Sulfate-D5w Pmx 100 1 gm In Dextrose/Water 1 100ml.bag @ 100 mls/hr IVPB Q1H [facility] Rx#: [id number] Output: Urine 1190 1350 Other: Voiding Method Indwelling Catheter Indwelling Catheter Indwelling Catheter - Labs CBC & Chem 7: 08/22/18 06:57 08/22/18 06:57 Labs: Abnormal Lab Results - Last 24 Hours (Table) 08/21/18 08/22/1819 Range/Units 07:25 06:57 06:57 RBC 3.12 L (3.80-5.40) m/uL Hgb 9.2 L (11.4-16.0) gm/dL Hct 29.0 L (34.0-46.0) % Potassium 3.3 L (3.5-5.1) mmol/L Chloride 108 H (98-107) mmol/L Creatinine 0.43 L (0.52-1.04) mg/dL Glucose 104 H (74-99) mg/dL Calcium 8.0 L (8.4-10.2) mg/dL Iron 20 L (50-170) ug/dL TIBC 197 L (228-460) ug/dL Iron Saturation 10.15 L (12.00-45.00) AST 41 H (14-36) U/L Total Protein 4.3 L (6.3-8.2) g/dL Albumin 2.1 L (3.5-5.0) g/dL Microbiology - Last 24 Hours (Table) 08/20/18 03:12 Blood Culture - Preliminary Blood No Growth after 48 hours
--- NOTE | 2018-08-22 13:12 | P.PN ---
Subjective Progress Note Date: 08/22/18 This is an 83 year old female, a patient of Dr. Molina. She has a known past medical history of dementia, hypertension, hyperlipidemia, GERD and hysterectomy. Patient initially presented to [facility] with abdominal pain and vomiting. Symptoms started 3 days ago. Patient lives on her own and her daughter, Eve helps out with the groceries in [place]. Patient did report she had some vomiting on Monday multiple times. She may have had a small bowel movement yesterday. Patient is a poor historian. She presented to [facility] and they had labs and computed tomography scan of the abdomen completed CT had shown fluid in the peritoneal cavity and increased attenuation of the mesenteric fat which findings could be due to ischemia of the bowel versus accumulation of fluid in the peritoneal cavity. There were mildly distended loops of the small bowel, possible ileus. Mild sclerosis of the left femoral head raising possibility of avascular necrosis. Also right kidney c ortical renal cyst largest of 3.7 cm. White count 10.95 hemoglobin 13 platelets are 228 lipase 111 lactic elevated at 2.5 creatinine 0.9 BUN 16 AST 25 and ALT 28. Patient was transferred to [facility] for further's treatment and care. Surgery has been consulted. Nursing was unable to get NG tube in place patient had nosebleed. Patient denies any fever, chills, sweats. Denies any burning with urination. On 08/15/2018 Patient is alert and oriented 3. NG tube is in place. Patient's stomach is slightly improved per patient. Patients nausea has improved. Awaiting surgical input for plan. At this time patient denies chest pain or shortness of breath. Patient denies any nausea or vomiting. Patient denies any urinary burning or frequency On 08/16/2018 patient is currently resting in bed. Patient's son at bedside. NG tube remains in place. Discussed case with surgical services MARK Oliver. Patient will likely undergo surgery today with Dr. adam for small bowel obstr uction. At this time patient is still having some abdominal pain. Patient denies chest pain or shortness of breath. Patient denies any urinary burning or frequency. All questions were answered 08/17/2018 patient is postop day #1 status post exploratory laparotomy with extensive lysis of adhesions with Dr. Otoole. She tolerated surgery well. She currently has NG tube in place and is nothing by mouth. Yesterday she became hypotensive to be held and she was given fluid boluses. Blood pressures have improved. Pain is controlled. She denies any chest pain or shortness breath. Has not had any bowel movement or passed gas yet. On 08/18/2018 patient is postop day 2 status post exploratory lap with extensive lysis of adhesions. Patient remains on ice chips only. NG has been removed. patient's daughter is at bedside. All questions answered at this time. Blood pressure has improved.. Awaiting surgical services for further advance diet On 08/19/2018 patient is currently postop day 3 status post exploratory lap with extensive lysis of adhesions. Patient is currently resting comfortably in bed. Patient remains ice chips only. Patient is having active bowel sounds but no bowel movement. At this time patient denies chest pain or shortness breath. Patient denies nausea vomiting or diarrhea. Patient denies any urinary burning or frequency. 08/20/2018 over the weekend patient had pulled out her NG tube. She is belching. It is unclear if she is passing any gas from below. So far no bowel movement reported. Surgical service has started a clear liquid diet. Patient is no vomiting. Denies any chest pain or shortness of breath. Showing evidence of urinary retention Daugherty catheter has to be reinserted. Low-grade temp of 99.1 08/21/2018 patient was able to have multiple bowel movements. Denies any nausea or vomiting. Surgical service is planning to advance to full liquid diet later today. Potassium low at 3.3 magnesium low at 1.6 they are being replaced. Patient sitting in bedside chair. Denies any pain at this time. Denies any chest pain or shortness of breath. Has Daugherty catheter in place. Urine is slightly orangeish. Denies any nausea or vomiting. Patient has been up and ambulating with physical therapy in the hallway. On 08/22/2018 patient remains on full liquid diet. Patient is having bowel movements. Patient remains to have Daugherty catheter in place. Patient denies chest pain or shortness breath. Patient denies nausea vomiting or diarrhea. Patient denies any urinary burning or frequency. Objective - Vital Signs Vital signs: Vital Signs Temp 99.0 F 08/22/18 08:46 Pulse 82 08/22/18 08:46 Resp 16 08/22/18 08:46 BP 137/69 08/22/18 08:46 Pulse Ox 93 L 08/22/18 08:46 Intake & Output 08/21/18 08/22/18 08/22/18 18:59 06:59 18:59 Intake Total 100 Output Total 1190 1350 Balance -1090 -1350 Weight 57.7 kg Intake: Intake, IV Titration 100 Amount Magnesium Sulfate-D5w Pmx 100 1 gm In Dextrose/Water 1 100ml.bag @ 100 mls/hr IVPB Q1H [facility] Rx#: [id number] Output: Urine 1190 1350 Other: Voiding Method Indwelling Catheter Indwelling Catheter Indwelling Catheter - Exam Head normocephalic Neck supple Lungs clear to auscultation bilaterally no wheezing or crackles Heart regular rate and rhythm S1-S2, no rub or gallop Abdomen is soft nondistended no bowel sounds tender with palpation incision s ites Extremities no edema Neuro alert and orientated - Labs CBC & Chem 7: 08/22/18 06:57 08/22/18 06:57 Labs: Abnormal Lab Results - Last 24 Hours (Table) 08/21/18 08/22/18 08/22/18 Range/Units 07:25 06:57 06:57 RBC 3.12 L (3.80-5.40) m/uL Hgb 9.2 L (11.4-16.0) gm/dL Hct 29.0 L (34.0-46.0) % Potassium 3.3 L (3.5-5.1) mmol/L Chloride 108 H (98-107) mmol/L Creatinine 0.43 L (0.52-1.04) mg/dL Glucose 104 H (74-99) mg/dL Calcium 8.0 L (8.4-10.2) mg/dL Iron 20 L (50-170) ug/dL TIBC 197 L (228-460) ug/dL Iron Saturation 10.15 L (12.00-45.00) AST 41 H (14-36) U/L Total Protein 4.3 L (6.3-8.2) g/dL Albumin 2.1 L (3.5-5.0) g/dL Microbiology - Last 24 Hours (Table) 08/20/18 03:12 Blood Culture - Preliminary Blood No Growth after 48 hours Assessment and Plan Assessment: 1. Small bowel obstruction status post exploratory laparotomy with extensive lysis of adhesions. NG tube is out. Patient having bowel movements. Surgical service is planning to advance diet to a full liquid diet 2. Mildly elevated lactic acid at [place] 2.5 we'll repeat lactic acid level. Repeat lactic 1.2 3. Essential hypertension: Patient's hydrochlorothiazide was restarted. Stop elevated blood pressure she has IV Vasotec and IV hydralazine on board. Blood pressures have shown improvement 4. Hyperlipidemia 5. Dementia 6. Nosebleed resolved 7. UTI ruled out urine culture negative 8. Hypotension secondary to pain meds and epidural. Resolved 9. Urinary retention. Daugherty catheter has to be reinserted. Urinalysis from yesterday is negative 10. Hypokalemia and hypomagnesemia patient receiving supplements. Repeat labs in a.m. 11. Anemia hemoglobin 8.9. No evidence of active bleeding. Possibly diluted from IV fluids and malnutrition. We'll check iron studies. Hemoglobin improving to 9.2. Iron low at 20 TIBC 197 and iron saturation low at 10.15. Will discuss with surgical services about starting iron supplement 12. Severe protein calorie malnutrition albumin 2.2. Continue ensure drinks GI prophylaxis Protonix and DVT prophylaxis subcu heparin Encourage patient to increase activity Patient was evaluated by Dr. Foster, possible inpatient rehab I performed an examination of the patient and discussed their management with the Nurse Practitioner. I have reviewed the Nurse Practitioner's notes and ag ree with the documented findings and plan of care
--- NOTE | 2018-08-22 18:09 | XR ---
EXAMINATION TYPE: XR chest 1V DATE OF EXAM: 08/22/2018 COMPARISON: NONE HISTORY: Fever TECHNIQUE: Single frontal view of the chest is obtained. FINDINGS: Heart is normal. There is blunting of both costophrenic angles with a lateral pleural effu sions. There is airspace infiltrate right lung base. Bony thorax appears intact. Mediastinum appears normal. IMPRESSION: Bilateral pleural effusions. No gross heart failure. Right lower lobe probable pneumonia .
[2018-08-23] MEDS: SODIUM CHLORIDE 0.45% 1,000 ML IV SCH (00:07)
[2018-08-23] MEDS: POTASSIUM CHLORIDE ER 20 MEQ TAB.ER PO SCH (00:08)
[2018-08-23] MEDS: METOCLOPRAMIDE 5 MG/ML 2 ML VIAL IVP SCH ×2 (00:08→05:18)
[2018-08-23] MEDS: HEPARIN SODIUM,PORCINE 5,000 UNIT/ML 1 ML VIAL SQ SCH ×3 (00:08→15:23)
[2018-08-23] MEDS: hydrALAZINE HCL 20 MG/ML 1 ML VIAL IVP PRN (02:09)
[2018-08-23 08:12] LABS: ALT 55 U/L (9-52); AST 77 U/L (14-36); Albumin 2.3 g/dL (3.5-5.0); Alkaline Phosphatase 84 U/L (38-126); Anion Gap 5 mmol/L; Basophils % (A) 0 %; Blood Urea Nitrogen 8 mg/dL (7-17); Calcium 8.8 mg/dL (8.4-10.2); Carbon Dioxide 25 mmol/L (22-30); Chloride 107 mmol/L (98-107); Eosinophils # (A) 0.2 k/uL (0-0.7); Eosinophils % (A) 2 %; Glucose 101 mg/dL (74-99); HCT 29.9 % (34.0-46.0); HGB 9.5 gm/dL (11.4-16.0); Lymphocytes # (A) 1.3 k/uL (1.0-4.8); Lymphocytes % (A) 14 %; MCH 29.3 pg (25.0-35.0); MCHC 31.8 g/dL (31.0-37.0); MCV 92.3 fL (80.0-100.0); Monocytes # (A) 0.7 k/uL (0-1.0); Monocytes % (A) 8 %; Neutrophils # (A) 6.5 k/uL (1.3-7.7); Neutrophils % (A) 73 %; Platelet Count 415 k/uL (150-450); Potassium 4.4 mmol/L (3.5-5.1); RBC 3.24 m/uL (3.80-5.40); RDW 13.7 % (11.5-15.5); Sodium 137 mmol/L (137-145); Total Bilirubin 0.5 mg/dL (0.2-1.3); Total Protein 4.6 g/dL (6.3-8.2); WBC 8.9 k/uL (3.8-10.6)
[2018-08-23] MEDS: HYDROCHLOROTHIAZIDE 12.5 MG CAP PO SCH (09:03)
[2018-08-23] MEDS: PANTOPRAZOLE 40 MG TABLET PO SCH (09:03)
[2018-08-23] MEDS: DONEPEZIL 10 MG TAB PO SCH (09:03)
--- NOTE | 2018-08-23 10:23 | P.PN ---
Subjective Progress Note Date: 08/23/18 CHIEF COMPLAINT: Small bowel obstruction HISTORY OF PRESENT ILLNESS: S/P exploratory laparotomy with extensive lysis of adhesions. Patient reports her pain is tolerable. Tolerating full liquids. No nausea or vomiting. Positive BM. PHYSICAL EXAM: VITAL SIGNS: Reviewed. GENERAL: Well-developed in no acute distress. HEENT: No sclera icterus. Extraocular movements grossly intact. Moist buccal mucosa. Head is atraumatic, normocephalic. ABDOMEN: Positive bowel sounds. Nondistended. Dressing to midline incision. NEUROLOGIC: Alert and oriented. Cranial nerves II through XII grossly intact. ASSESSMENT: 1. Small bowel obstruction, complete, s/p exploratory laparotomy with extensive lysis of adhesions PLAN: 1. Advance diet to heart healthy 2. Activity as tolerated 3. Incentive spirometry 4. Patient is cleared for discharge from a surgical standpoint. Follow up with Dr. Otoole in 1 week. 5. [place] to be removed on Monday08/27/18 Nurse practitioner note has been reviewed by physician. Signing provider agrees with the documented findings, assessment, and plan of care. Objective - Vital Signs Vital signs: Vital Signs Temp 98.3 F 08/23/18 08:42 Pulse 62 08/23/18 08:42 Resp 16 08/23/18 09:21 BP 153/75 08/23/18 08:42 Pulse Ox 91 L 08/23/18 08:42 Intake & Output 08/22/18 08/23/18 08/23/18 18:59 06:59 18:59 Output Total 1850 1550 Balance -1850 -1550 Weight 57.7 kg Output: Urine 1850 1550 Other: Voiding Method Indwelling Catheter Indwelling Catheter # Bowel Movements 1 - Labs CBC & Chem 7: 08/23/18 07:22 08/23/18 07:22 Labs: Abnormal Lab Results - Last 24 Hours (Table) 08/23/18 08/23/18 Range/Units 07:22 07:22 RBC 3.24 L (3.80-5.40) m/uL Hgb 9.5 L (11.4-16.0) gm/dL Hct 29.9 L (34.0-46.0) % Creatinine 0.38 L (0.52-1.04) mg/dL Glucose 101 H (74-99) mg/dL AST 77 H (14-36) U/L ALT 55 H (9-52) U/L Total Protein 4.6 L (6.3-8.2) g/dL Albumin 2.3 L (3.5-5.0) g/dL Microbiology - Last 24 Hours (Table) 08/20/18 03:12 Blood Culture - Preliminary Blood No Growth after 72 hours
[2018-08-23] MEDS ORDERED: ACETAMINOPHEN TAB 325 MG TAB PO PRN (13:21)
--- NOTE | 2018-08-23 13:44 | P.DS ---
Providers Date of admission: 08/14/18 15:08 Expected date of discharge: 08/23/18 Attending physician: Melina Barron Consults: 08/14/18 15:08 Consult Physician Urgent Consulting Provider: Ori Otoole Consult Reason/Comments: Small bowel obstruction Do you want consulting provider notified?: Yes 08/21/18 15:23 Consult Physician Routine Consulting Provider: Valentin Foster Consult Reason/Comments: evaluate for inpatient rehab Do you want consulting provider notified?: Yes Primary care physician: Teresa Molina Hospital Course: Discharge diagnosis 1. Small bowel obstruction status post exploratory laparotomy with extensive lysis of adhesions. 2. Mildly elevated lactic acid at [place] 2.5 we'll repeat lactic acid level. Repeat lactic 1.2 3. Essential hypertension: Continue hydrochlorothiazide 4. Hyperlipidemia 5. Dementia 6. Nosebleed resolved 7. UTI ruled out urine culture negative 8. Hypotension secondary to pain meds and epidural. Resolved 9. Urinary retention. Natarajan catheter reinserted on 08/20/2018. We'll continue Natarajan catheter for a total of 7 days and then have patient undergo a voiding trial 10. Hypokalemia and hypomagnesemia : Potassium at discharge 4.4 magnesium 1.6. We'll give another gram of magnesium sulfate for discharge 11. Iron deficiency anemia: Start patient on ferrous sulfate 325 mg twice a day. Hemoglobin at discharge is 9.5 up from 9.2 12. Severe protein calorie malnutrition albumin 2.2. Continue ensure drinks 13. Possible right lower lobe pneumonia: Start Levaquin 500 mg by mouth daily for 7 days 14. Elevated LFTs. Fenofibrate discontinued. [place] discontinued. Tylenol dosage decreased to 325 mg 1 every 6 hours as needed for pain control. Continue to monitor LFTs during her inpatient rehab stay Hospital course This is an 83 year old female, a patient of Dr. Molina. She has a known past medical history of dementia, hypertension, hyperlipidemia, GERD and hysterectomy. Patient initially presented to [facility] with abdominal pain and vomiting. Symptoms started 3 days ago. Patient lives on her own and her daughter, Eve helps out with the groceries in [place]. Patient did report she had some vomiting on Monday multiple times. She may have had a small bowel movement yesterday. Patient is a poor historian. She presented to [facility] and they had labs and computed tomography scan of the abdomen completed CT had shown fluid in the peritoneal cavity and increased attenuation of the mesenteric fat which findings could be due to ischemia of the bowel versus accumulation of fluid in the peritoneal cavity. There were mildly distended loops of the small bowel, possible ileus. Mild sclerosis of the left femoral head raising possibility of avascular necrosis. Also right kidney cortical renal cyst largest of 3.7 cm. White count 10.95 hemoglobin 13 platelets are 228 lipase 111 lactic elevated at 2.5 creatinine 0.9 BUN 16 AST 25 and ALT 28. Patient was transferred to [facility] for further's treatment and care. Surgery has been consulted. Nursing was unable to get NG tube in place patient had nosebleed. Patient denies any fever, chills, sweats. Denies any burning with urination. On 08/15/2018 Patient is alert and oriented 3. NG tube is in place. Patient's stomach is slightly improved per patient. Patients nausea has improved. Awaiting surgical input for plan. At this time patient denies chest pain or shortness of breath. Patient denies any nausea or vomiting. Patient denies any urinary burning or frequency On 08/16/2018 patient is currently resting in bed. Patient's son at bedside. NG tube remains in place. Discussed case with surgical services MARK Oliver. Patient will likely undergo surgery today with Dr. adam for small bowel obstruction. At this time patient is still having some abdominal pain. Patient denies chest pain or shortness of breath. Patient denies any urinary burning or frequency. All questions were answered 08/17/2018 patient is postop day #1 status post exploratory laparotomy with extensive lysis of adhesions with Dr. Otoole. She tolerated surgery well. She currently has NG tube in place and is nothing by mouth. Yesterday she became hypotensive to be held and she was given fluid boluses. Blood pressures have improved. Pain is controlled. She denies any chest pain or shortness breath. Has not had any bowel movement or passed gas yet. On 08/18/2018 patient is postop day 2 status post exploratory lap with extensive lysis of adhesions. Patient remains on ice chips only. NG has been removed. patient's daughter is at bedside. All questions answered at this time. Blood pressure has improved.. Awaiting surgical services for further advance diet On 08/19/2018 patient is currently postop day 3 status post exploratory lap with extensive lysis of adhesions. Patient is currently resting comfortably in bed. Patient remains ice chips only. Patient is having active bowel sounds but no bowel movement. At this time patient denies chest pain or shortness breath. Patient denies nausea vomiting or diarrhea. Patient denies any urinary burning or frequency. 08/20/2018 over the weekend patient had pulled out her NG tube. She is belching. It is unclear if she is passing any gas from below. So far no bowel movement reported. Surgical service has started a clear liquid diet. Patient is no vomiting. Denies any chest pain or shortness of breath. Showing evidence of urinary retention Natarajan catheter has to be reinserted. Low-grade temp of 99.1 08/21/2018 patient was able to have multiple bowel movements. Denies any nausea or vomiting. Surgical service is planning to advance to full liquid diet later today. Potassium low at 3.3 magnesium low at 1.6 they are being replaced. Patient sitting in bedside chair. Denies any pain at this time. Denies any chest pain or shortness of breath. Has Natarajan catheter in place. Urine is slightly orangeish. Denies any nausea or vomiting. Patient has been up and ambulating with physical therapy in the hallway. On 08/22/2018 patient remains on full liquid diet. Patient is having bowel movements. Patient remains to have Natarajan catheter in place. Patient denies chest pain or shortness breath. Patient denies nausea vomiting or diarrhea. Patient denies any urinary burning or frequency. 08/23/2018 patient is medically and surgically stable for discharge. She underwent export for laparotomy with lysis of adhesions for a small bowel obstruction. Patient tolerated surgery well. She is tolerated advancement of diet. She is having bowel movements. She will be discharged to inpatient rehab at [facility] with Dr. Foster for further rehabilitation. Patient was started on Levaquin for a possible right lower lobe pneumonia. Also with her urinary retention we'll continue Natarajan catheter. Natarajan catheter was inserted on August 20. Would recommend continuing Natarajan catheter for total 7 days before undergoing a voiding trial. I performed an examination of the patient and discussed their management with the physician Electronic Test Technician. I have reviewed the Physician Electronic Test Technician's notes and agree with the documented findings and plan of care Patient Condition at Discharge: Stable Plan - Discharge Summary Discharge Rx Participant: Yes New Discharge Prescriptions: New Hydrochlorothiazide [Hydrodiuril] 12.5 mg PO DAILY cap Levofloxacin [Levaquin] 500 mg PO Q24H #7 tab Acetaminophen Tab [Tylenol] 325 mg PO Q6HR PRN tab PRN Reason: Fever And/ Or Pain Continue Donepezil [Aricept] 10 mg PO DAILY Discontinued Hydrochlorothiazide 12.5 mg PO DAILY Fenofibrate 80 mg PO PC-SUPPER Discharge Medication List Donepezil [Aricept] 10 mg PO DAILY 08/14/18 [History] Acetaminophen Tab [Tylenol] 325 mg PO Q6HR PRN tab 08/23/18 [Rx] Hydrochlorothiazide [Hydrodiuril] 12.5 mg PO DAILY cap 08/23/18 [Rx] Levofloxacin [Levaquin] 500 mg PO Q24H #7 tab 08/23/18 [Rx] Follow up Appointment(s)/Referral(s): Ori Otoole MD [Medical Doctor] - 1 Week Teresa Molina MD [Primary Care Provider] - 1 Week Activity/Diet/Wound Care/Special Instructions: No driving while taking [place] No lifting over 10 pounds You may shower. No soaking or tub baths Activity as tolerated [place] to be removed on Monday August 27, 2018 Diet: Heart Healthy Activity: as tolerated Keep natarajan catheter in place Ok to discharge to inpatient rehab with Dr. Foster Discharge Disposition: OTHER INSTITUTION NOT DEFINED
[2018-08-23] MEDS ORDERED: LEVOFLOXACIN 500 MG TAB PO SCH (14:00)
[2018-08-23] MEDS ORDERED: MAGNESIUM SULFATE-D5W PMX 1 GM in DEXTROSE/WATER 1 100ML.BAG IVPB ONE (14:00)
[2018-08-23 14:38] VITALS: BP 154/84; PULSE 89; TEMP 98.4
== END 2018-08-23 15:58 | DRG 335 ==
LOC: EC 13:22 → 4SSUR 15:08
PROVIDERS: ADMIT Internal Medicine; ATTEND Internal Medicine
PROC: 0DN80ZZ Release Small Intestine, Open Approach (ICD-10-PCS; principal; 2018-08-16 10:20)
DX: K56.52 Intestinal adhesions [bands] with complete obstruction (principal); E43 Unspecified severe protein-calorie malnutrition; J18.9 Pneumonia, unspecified organism; I95.9 Hypotension, unspecified; E83.42 Hypomagnesemia; N28.1 Cyst of kidney, acquired; F03.90 Unspecified dementia, unspecified severity, without behavioral disturbance, psychotic disturbance, mood disturbance, and anxiety; E87.6 Hypokalemia; D50.9 Iron deficiency anemia, unspecified; E78.5 Hyperlipidemia, unspecified; I10 Essential (primary) hypertension; K21.9 Gastro-esophageal reflux disease without esophagitis; R04.0 Epistaxis; R33.9 Retention of urine, unspecified; R74.8 Abnormal levels of other serum enzymes; Z79.899 Other long term (current) drug therapy; Z87.891 Personal history of nicotine dependence; Z90.710 Acquired absence of both cervix and uterus; Z68.21 Body mass index [BMI] 21.0-21.9, adult; Z82.49 Family history of ischemic heart disease and other diseases of the circulatory system
CPT/HCPCS: 71045; 74019; 80053; 81001; 82728; 83540; 83550; 83605; 83735; 85025; 87040; 87086; 87502; 96361; 96374; 96375; 99285

== ENCOUNTER 2020-02-01 12:47 | Emergency (ER) | payer MEDICARE ==
[2020-02-01 12:54] VITALS: RESP 18; TEMP 98
--- NOTE | 2020-02-01 13:46 | XR ---
EXAMINATION TYPE: XR lumbar spine 2 or 3V DATE OF EXAM: 02/01/2020 Comparison: None Clinical History: 85-year-old female low back pain Findings: Dextroconvex scoliosis. 5 lumbar type vertebral bodies. Hypertrophic facet arthropathy mid to lower l umbar spine. Moderate degenerative disc disease L2-L3. Grade 1 retrolisthesis at L1-L2 and L2-L3. Re maining alignment is maintained. Vertebral body heights are preserved. 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 Impression: 1. Dextro convex scoliosis. 2. Advanced hypertrophic facet arthropathy mid to lower lumbar spine. Degenerative grade 1 retrolisth esis at L1-L2 and L2-L3. 3. Moderate degenerative disc disease particularly at L2-L3. 4. No vertebral compression collapse. 5. 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
[2020-02-01] MEDS ORDERED: HYDROcodone/APAP 5-325MG 1 EACH TAB PO STA (14:13)
--- NOTE | 2020-02-01 14:15 | ED ---
General Adult HPI - General Source: patient, family, RN notes reviewed, old records reviewed Mode of arrival: wheelchair Limitations: no limitations <Gareth Saldana - Last Filed: 02/01/20 15:53> <Isabelle Aponte - Last Filed: 02/02/20 13:48> - General Chief complaint: Extremity Injury, Lower Stated complaint: sciatic nerve pain Time Seen by Provider: 02/01/20 13:09 - History of Present Illness Initial comments: 85-year-old female patient presents to ED for evaluation of some back and leg pain. Patient reports that she has history of some chronic back pain. She is very active yesterday walking around and says. She woke up today and having some left paralumbar back pain also reported having some pain behind her left knee. Denies any chest pain shortness breath. Denies any falls or trauma. Denies any numbness and tingling or any red flag symptoms. Denies any other acute complaints. Systemic: Pt denies fatigue, fever/chills, rash. Pt denies weakness, night sweats, weight loss. Neuro: Pt denies headache, visual disturbances, syncope or pre-syncope. HEENT: Pt denies ocular discharge or irritation, otalgia, rhinorrhea, pharyngitis or notable lymphadenopathy. Cardiopulmonary: Pt denies chest pain, SOB, heart palpitations, dyspnea on exertion. Abdominal/GI: Pt denies abdominal pain, n/v/d. : Pt denies dysuria, burning w/ urination, frequency/urgency. Denies new onset urinary or bowel incontinence. MSK: Pt denies loss of strength or function in extremities. Neuro: Pt denies new onset weakness, paresthesias. (Gareth Saldana) - Related Data Home Medications Medication Instructions Recorded Confirmed Donepezil [Aricept] 10 mg PO DAILY 08/14/18 08/14/18 Previous Rx's Medication Instructions Recorded Acetaminophen Tab [Tylenol] 325 mg PO Q6HR PRN tab 08/23/18 Ferrous Sulfate [Feosol] 325 mg PO BID #60 tab 08/23/18 Levofloxacin [Levaquin] 500 mg PO Q24H #7 tab 08/23/18 hydroCHLOROthiazide [Hydrodiuril] 12.5 mg PO DAILY cap 08/23/18 Allergies Allergy/AdvReac Type Severity Reaction Status Date / Time No Known Allergies Allergy Verified 02/01/20 12:50 Review of Systems ROS Other: All systems not noted in ROS Statement are negative. <Gareth Saldana - Last Filed: 02/01/20 15:53> ROS Other: All systems not noted in ROS Statement are negative. <Isabelle Aponte - Last Filed: 02/02/20 13:48> ROS Statement: Those systems with pertinent positive or pertinent negative responses have been documented in the HPI. Past Medical History Past Medical History: GERD/Reflux, Hyperlipidemia, Hypertension Additional Past Medical History / Comment(s): dementia History of Any Multi-Drug Resistant Organisms: None Reported Past Surgical History: Bowel Resection, Hysterectomy, Orthopedic Surgery Additional Past Surgical History / Comment(s): left hip, bowel resection Past Anesthesia/Blood Transfusion Reactions: No Reported Reaction Past Psychological History: No Psychological Hx Reported Smoking Status: Former smoker Past Alcohol Use History: None Reported Past Drug Use History: None Reported - Past Family History Daughter(s) Family Medical History: No Reported History Mother Family Medical History: Coronary Artery Disease (CAD), Myocardial Infarction (ID) <Gareth Saldana - Last Filed: 02/01/20 15:53> General Exam Limitations: no limitations <Gareth Saldana - Last Filed: 02/01/20 15:53> - General Exam Comments Initial Comments: Constitutional: NAD, AOX3, Pt has pleasant affect. HEENT: NC/AT, trachea midline, neck supple, no lymphadenopathy. External ears appear normal, without discharge. Mucous membranes moist. Eyes PERRLA, EOM intact. There is no scleral icterus. No pallor noted. Cardiopulmonary: RRR, no murmurs, rubs or gallops, no JVD noted. Lungs CTAB in anterior and posterior berrios. No peripheral edema. Abdominal exam: Abdomen soft and non-distended. Abdomen non-tender to palpation in all 4 quadrants. Bowel sounds active in LLQ. No hepatosplenomegaly. No ecchymosis Neuro: CN II-XII grossly intact. No nuchal rigidity. No raccon eyes, no rojas sign, no hemotympanum. No cervical spinal tenderness. MSK: Mild tenderness to left paralumbar region, mild tenderness to left proximal calf and popliteal region. No right sided calf Tenderness. Homans sign negative bilaterally. Posterior tibialis and radial pulse +2 bilaterally. Sensation intact in upper and lower extremities. Full active ROM in upper and lower extremities, 5/5 stregnth. (Gareth Saldana) Course Vital Signs 02/01/20 02/01/20 02/01/20 12:50 13:50 15:24 Temperature 98 F Pulse Rate 61 71 60 Respiratory 18 18 18 Rate Blood Pressure 190/91 151/73 160/77 O2 Sat by Pulse 99 99 96 Oximetry Medical Decision Making <Gareth Saldana - Last Filed: 02/01/20 15:53> <Isabelle Aponte - Last Filed: 02/02/20 13:48> - Medical Decision Making 85-year-old female patient presents to ED for evaluation of some back and leg pain. Patient reports that she has history of some chronic back pain. She is very active yesterday walking around and says. She woke up today and having some left paralumbar back pain also reported having some pain behind her left knee. Denies any chest pain shortness breath. Denies any falls or trauma. Denies any numbness and tingling or any red flag symptoms. Denies any other acute complaints. Patient will signs stable, afebrile. Physical exam displayed some left paralumbar tenderness as well as some tenderness behind left popliteal region left proximal calf. Ultrasound displayed no evidence of deep in his fibrosis in the left leg is a popliteal cyst. Plain film number spine displayed dextroconvex scoliosis. Advance Hypertrophic facet arthropathy, grade 1 retrolisthesis. Mild/moderate degenerative disc disease. No vertebral column collapse. 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 Always findings related patient. She is feeling much improved. She'll be discharged with outpatient follow-up and return precautions. Case discussed with Dr. Aponte. (Gareth Saldana) I was available for consultation in the emergency department. The history and physical exam were done by the midlevel provider. I was consulted for this [facility]. I reviewed the case with the midlevel provider and based on their presentation of the patient, I agree with the assessment, medical decision making and plan of care as documented. Patient instructed to follow up outpatient for the anerysmal findings on imaging. Patient understood. Chart was dictated using [employer] dictation software. Attempts were made to correct any dictation errors however some typographical errors may persist. Patient was seen during a national state of emergency due to the Covid-19 pandemic. (Isabelle Aponte) Disposition Is patient prescribed a controlled substance at d/c from ED?: No <Gareth Saldana - Last Filed: 02/01/20 15:53> <Isabelle Aponte - Last Filed: 02/02/20 13:48> Clinical Impression: Bakers cyst, Back pain Disposition: HOME SELF-CARE Condition: Stable Instructions (If sedation given, give patient instructions): Bakers Cyst (ED), Acute Low Back Pain (ED) Additional Instructions: Follow-up with primary care provider tomorrow. use pain medication as needed. Return to ER with any worsening symptoms. Follow up with primary care provider in regards to the aorta aneurysm as well. Referrals: Mahi Espinoza MD [Primary Care Provider] - 1-2 days
[2020-02-01 15:25] VITALS: BP 160/77; PULSE 60
--- NOTE | 2020-02-01 15:26 | US ---
EXAMINATION TYPE: US venous doppler duplex LE LT DATE OF EXAM: 02/01/2020 2:56 PM COMPARISON: NONE CLINICAL HISTORY: pain. left leg pain SIDE PERFORMED: left TECHNIQUE: The lower extremity deep venous system is examined utilizing real time linear array sonog kayy with graded compression, doppler sonography and color-flow sonography. VESSELS IMAGED: External Iliac Vein (EIV) Common Femoral Vein Deep Femoral Vein Greater Saphenous Vein * Femoral Vein Popliteal Vein Small Saphenous Vein * Proximal Calf Veins (* superficial vessels) Left Leg: Technical limitations, patient unable to rotate leg into adequate position and difficult f or patient to hold still. no evidence of DVT as visualized. complex anechoic area left popliteal jovanna a = 6.3 x 2.3 x 3.9cm, probable Deluca's cyst IMPRESSION: No evidence of deep vein thrombosis in the left leg. Popliteal cyst is demonstrated.
[2020-02-01] MEDS ORDERED: ACET/COD 300 MG/30 MG STARTER PACK 6 TAB BTL PO STA (16:00)
== END 2020-02-01 16:07 | disposition home or self-care (01) ==
LOC: EC 12:47
DX: M51.36 Other intervertebral disc degeneration, lumbar region (principal); M71.22 Synovial cyst of popliteal space [Baker], left knee; M43.16 Spondylolisthesis, lumbar region; M47.816 Spondylosis without myelopathy or radiculopathy, lumbar region; F03.90 Unspecified dementia, unspecified severity, without behavioral disturbance, psychotic disturbance, mood disturbance, and anxiety; Z79.899 Other long term (current) drug therapy; Z87.891 Personal history of nicotine dependence
CPT/HCPCS: 72100; 99284

== ENCOUNTER 2020-11-16 09:48 | Inpatient (IN) | payer MEDICARE ==
--- NOTE | 2020-11-16 10:22 | ED ---
General Adult HPI - General Chief complaint: Fall Stated complaint: fall, leg pain Time Seen by Provider: 11/16/20 09:51 Source: EMS Mode of arrival: EMS Limitations: no limitations - History of Present Illness Initial comments: Dictation was produced using [employer] dictation software. please excuse any grammatical, word or spelling errors. Chief Complaint: 85-year-old female past medical history of GERD, dyslipidemia hypertension and dementia presents with right hip pain after fall History of Present Illness: A 85-year-old female she states that she fell after fixing her bed this morning. She doesn't remember how she fell. Patient states she has sharp hip pain to the right side. Patient arrived by EMS after being found down by assisted living facility staff. Patient reports started and unable to provide a tilt history of present illness. She states she does have right hip pain. Daughter at bedside reports that neurologic the patient does seem to be at baseline. States that she did fall after tripping over something however she is not sure. Unable to obtain review of systems secondary to mental status of dementia. PHYSICAL EXAM: General Impression: Alert and oriented x2/4, not in acute distress HEENT: Normocephalic atraumatic, extra-ocular movements intact, pupils equal and reactive to light bilaterally, mucous membranes moist. Cardiovascular: Heart regular rate and rhythm Chest: Able to complete full sentences, no retractions, no tachypnea Abdomen: abdomen soft, non-tender, non-distended, no organomegaly Musculoskeletal: Pulses present and equal in all extremities, no peripheral edema, tenderness to palpation over the right greater trochanter, right lower extremity is not significantly shortened compared to left. Motor: no focal deficits noted Neurological: CN II-XII grossly intact, no focal motor or sensory deficits noted Skin: Intact with no visualized rashes Psych: Normal affect and mood ED course: 85-year-old female presents after fall. She has right hip pain concerning for right sided hip fracture. Vital signs upon arrival are within acceptable limits. Laboratory evaluation obtained. White count 6.1, metabolic panel is unremarkable. Rotavirus is negative. Chest x-ray is nonacute. Computed tomography scan of the head and C-spine shows no acute traumatic injuries. Pelvis x-ray shows right hip fracture. Impacted subcapital femoral head fracture. Case discussed with miriam who is on-call for orthopedic surgery [facility]. He did speak with Dr. High sent and they're willing to accept patients care for admission. Consulted internal medicine was ordered. EKG interpretation: Ventricular rate 82, normal sinus rhythm, DE interval 162, QRS 80, QTC 422. No DE prolongation, no QTC prolongation, no ST or T-wave changes noted. No old EKG for comparison. Overall, this EKG is unremarkable - Related Data Home Medications Medication Instructions Recorded Confirmed Donepezil [Aricept] 10 mg PO DAILY 08/14/18 11/16/20 Aspirin EC [Ecotrin Low Dose] 81 mg PO DAILY 11/16/20 11/16/20 Atorvastatin [Lipitor] 40 mg PO DAILY 11/16/20 11/16/20 Memantine [Namenda] 5 mg PO DAILY 11/16/20 11/16/20 Omeprazole 20 mg PO DIRECTED 11/16/20 11/16/20 lisinopriL 40 mg PO DAILY 11/16/20 11/16/20 Previous Rx's Medication Instructions Recorded hydroCHLOROthiazide [Hydrodiuril] 12.5 mg PO DAILY cap 08/23/18 Allergies Allergy/AdvReac Type Severity Reaction Status Date / Time No Known Allergies Allergy Verified 11/16/20 11:54 Review of Systems ROS Statement: Those systems with pertinent positive or pertinent negative responses have been documented in the HPI. ROS Other: All systems not noted in ROS Statement are negative. Past Medical History Past Medical History: GERD/Reflux, Hyperlipidemia, Hypertension Additional Past Medical History / Comment(s): dementia History of Any Multi-Drug Resistant Organisms: None Reported Past Surgical History: Bowel Resection, Hysterectomy, Orthopedic Surgery Additional Past Surgical History / Comment(s): left hip, bowel resection Past Anesthesia/Blood Transfusion Reactions: No Reported Reaction Past Psychological History: No Psychological Hx Reported Smoking Status: Former smoker Past Alcohol Use History: None Reported Past Drug Use History: None Reported - Past Family History Daughter(s) Family Medical History: No Reported History Mother Family Medical History: Coronary Artery Disease (CAD), Myocardial Infarction (OR) General Exam Limitations: no limitations Course Vital Signs 11/16/20 09:51 Temperature 98.2 F Pulse Rate 76 Respiratory 20 Rate Blood Pressure 190/106 O2 Sat by Pulse 97 Oximetry Medical Decision Making - Lab Data Result diagrams: 11/16/20 09:59 11/16/20 09:59 Lab Results 11/16/20 11/16/20 11/16/20 Range/Units 09:59 09:59 09:59 WBC 16.1 H (3.8-10.6) k/uL RBC 3.87 (3.80-5.40) m/uL Hgb 11.8 (11.4-16.0) gm/dL Hct 34.2 (34.0-46.0) % MCV 88.4 (80.0-100.0) fL MCH 30.4 (25.0-35.0) pg MCHC 34.5 (31.0-37.0) g/dL RDW 13.3 (11.5-15.5) % Plt Count 212 (150-450) k/uL MPV 9.4 Neutrophils % 82 % Lymphocytes % 9 % Monocytes % 8 % Eosinophils % 0 % Basophils % 0 % Neutrophils # 13.1 H (1.3-7.7) k/uL Lymphocytes # 1.5 (1.0-4.8) k/uL Monocytes # 1.3 H (0-1.0) k/uL Eosinophils # 0.0 (0-0.7) k/uL Basophils # 0.0 (0-0.2) k/uL PT 10.3 (9.0-12.0) sec INR 1.0 (<1.2) APTT 20.6 L (22.0-30.0) sec Sodium 138 (137-145) mmol/L Potassium 4.7 (3.5-5.1) mmol/L Chloride 105 (98-107) mmol/L Carbon Dioxide 23 (22-30) mmol/L Anion Gap 10 mmol/L BUN 24 H (7-17) mg/dL Creatinine 1.02 (0.52-1.04) mg/dL Est GFR (CKD-EPI)AfAm 57 (>60 ml/min/1.73 sqM) Est GFR (CKD-EPI)NonAf 50 (>60 ml/min/1.73 sqM) Glucose 99 (74-99) mg/dL Calcium 9.6 (8.4-10.2) mg/dL Coronavirus (PCR) (Not Detectd) 11/16/20 Range/Units 10:36 WBC (3.8-10.6) k/uL RBC (3.80-5.40) m/uL Hgb (11.4-16.0) gm/dL Hct (34.0-46.0) % MCV (80.0-100.0) fL MCH (25.0-35.0) pg MCHC (31.0-37.0) g/dL RDW (11.5-15.5) % Plt Count (150-450) k/uL MPV Neutrophils % % Lymphocytes % % Monocytes % % Eosinophils % % Basophils % % Neutrophils # (1.3-7.7) k/uL Lymphocytes # (1.0-4.8) k/uL Monocytes # (0-1.0) k/uL Eosinophils # (0-0.7) k/uL Basophils # (0-0.2) k/uL PT (9.0-12.0) sec INR (<1.2) APTT (22.0-30.0) sec Sodium (137-145) mmol/L Potassium (3.5-5.1) mmol/L Chloride (98-107) mmol/L Carbon Dioxide (22-30) mmol/L Anion Gap mmol/L BUN (7-17) mg/dL Creatinine (0.52-1.04) mg/dL Est GFR (CKD-EPI)AfAm (>60 ml/min/1.73 sqM) Est GFR (CKD-EPI)NonAf (>60 ml/min/1.73 sqM) Glucose (74-99) mg/dL Calcium (8.4-10.2) mg/dL Coronavirus (PCR) Not Detected (Not Detectd) Disposition Clinical Impression: Hip fracture Disposition: ADMITTED IP TO THIS HOSP Condition: Fair Referrals: Mahi Espinoza MD [Primary Care Provider] - 1-2 days
[2020-11-16 10:43] LABS: Basophils % (A) 0 %; Eosinophils % (A) 0 %; HCT 34.2 % (34.0-46.0); HGB 11.8 gm/dL (11.4-16.0); Lymphocytes # (A) 1.5 k/uL (1.0-4.8); Lymphocytes % (A) 9 %; MCH 30.4 pg (25.0-35.0); MCHC 34.5 g/dL (31.0-37.0); MCV 88.4 fL (80.0-100.0); Mean Platelet Volume 9.4; Monocytes # (A) 1.3 k/uL (0-1.0); Monocytes % (A) 8 %; Neutrophils # (A) 13.1 k/uL (1.3-7.7); Neutrophils % (A) 82 %; Platelet Count 212 k/uL (150-450); RBC 3.87 m/uL (3.80-5.40); RDW 13.3 % (11.5-15.5); WBC 16.1 k/uL (3.8-10.6)
--- NOTE | 2020-11-16 10:50 | CT ---
EXAMINATION TYPE: CT brain farzana rausch DATE OF EXAM: 11/16/2020 COMPARISON: None HISTORY: 85-year-old female pain after Fall today. CT DLP: 1354.4 mGycm Automated exposure control for dose reduction was used. Technique: Examination of the head was done in axial plane without intravenous contrast. Coronal and sagittal reconstructions performed. CT of the cervical spine was obtained in axial plane without intravenous injection of contrast mater ial. Coronal and sagittal reformatted images were obtained from the axial views for evaluation of f ractures, spinal alignment and canal. FINDINGS: Head: There is no evidence of acute intracranial hemorrhage, acute ischemic changes, mass, mass-effect, or extra-axial fluid collection. There is no effacement of cerebral sulci or basal subarachnoid cister ns. There is no midline shift. Bro-white matter distinction is preserved. Moderate generalized supratentorial volume loss. Secondary mild prominence to the ventricular system. Mild atherosclerotic calcifications within the carotid siphons. Scattered mild white matter hypodens ities in both cerebral hemispheres. Paranasal sinuses and mastoid air cells are well pneumatized. Orbits and globes are intact. Cervical spine: Possible 1.6 cm nodule lower pole left thyroid gland, refer to coronal image 7. Biapical pleural-pare nchymal scarring. No craniocervical junction abnormally, predental space widening, or prevertebral soft tissue swelling . Degenerative changes of the C1 dens articulation. There is preserved alignment of the cervical spine. Moderate degenerative disc disease C3-C7 levels. Disc osteophyte complex at C3-C4 causes mild narrowi ng of the spinal canal. Assessment of the spinal canal from C5-C6 and below is limited due to artifac t from patient shoulders. Scattered facet and uncovertebral joint arthropathy. No acute fracture of the cervical spine. Variable mild neuroforaminal narrowing, more moderate on the right at C3-C4 and C5-C6. Sagittal and coronal reformatted images confirm above findings. COMBINED IMPRESSION: 1. Moderate cerebral atrophy and mild changes of chronic small vessel ischemic disease. No acute intr acranial abnormality seen. 2. No acute fracture or malalignment of the cervical spine. Moderate spondylotic change. 3. Possible 1.6 cm left thyroid lobe nodule. Nonemergent thyroid ultrasound to further evaluate.
[2020-11-16 10:55] LABS: Calcium 9.6 mg/dL (8.4-10.2); Potassium 4.7 mmol/L (3.5-5.1)
[2020-11-16 11:05] LABS: Prothrombin Time 10.3 sec (9.0-12.0)
--- NOTE | 2020-11-16 11:16 | XR ---
EXAMINATION TYPE: XR Hip RT and AP Pelvis DATE OF EXAM: 11/16/2020 COMPARISON: None available HISTORY: Trauma and right hip pain TECHNIQUE: A single AP view of the pelvis is obtained. Two views of the right hip are obtained. FINDINGS: The patient is rotated. Bone mineralization is reduced. Postop changes are present in the l eft hip. Degenerative disc changes are present within the lumbar spine, there is a spinal curvature. Impacted subcapital femoral head fracture is noted on the right, there is some surrounding probable c hondrocalcinosis. There is no dislocation. IMPRESSION: Right hip fracture
--- NOTE | 2020-11-16 11:18 | XR ---
EXAMINATION TYPE: XR chest 1V portable DATE OF EXAM: 11/16/2020 COMPARISON: Chest x-ray 08/22/2018 HISTORY: Trauma and right hip pain, dizziness TECHNIQUE: Single frontal view of the chest is obtained. FINDINGS: There is no focal air space opacity, pleural effusion, or pneumothorax seen. The cardiac silhouette size is within normal limits. The osseous structures are intact, there is a spinal curva ture. The aorta is dense. IMPRESSION: No acute process.
[2020-11-16 11:50] LABS: Partial Thromboplastin Time 20.6 sec (22.0-30.0)
[2020-11-16] MEDS ORDERED: ACETAMINOPHEN TAB 325 MG TAB PO PRN (12:36)
[2020-11-16] MEDS ORDERED: ONDANSETRON 4 MG/2 ML VIAL IVP PRN (12:36)
[2020-11-16] MEDS ORDERED: NALOXONE 0.4 MG/ML 1 ML VIAL IV PRN (12:36)
[2020-11-16] MEDS: SODIUM CHLORIDE 0.9% 1,000 ML IV SCH ×2 (12:56→17:17)
[2020-11-16] MEDS: MORPHINE SULFATE 4 MG/ML SYRINGE IV PRN ×2 (13:03→19:34)
--- NOTE | 2020-11-16 15:57 | CT ---
EXAMINATION TYPE: CT pelvis wo con DATE OF EXAM: 11/16/2020 COMPARISON: Radiograph same day. HISTORY: 85-year-old female Hip fx, pelvic fx. TECHNIQUE: Contiguous axial scanning of the pelvis without IV contrast. Coronal and sagittal reconstr uctions performed. CT DLP: 321.8 mGycm Automated exposure control for dose reduction was used. FINDINGS: Partially visualized cyst medial right kidney measuring at least 3.8 cm. Daugherty catheter decompresses the bladder. Numerous pelvic phleboliths. Uterus surgically absent. Proximal to mid sigmoid diverticu losis. Normal appendix. No abnormal fluid collection the pelvis or pelvic lymphadenopathy. Bilateral synovial calcifications at both hips. Marked osteopenia. Previous percutaneous left hip scr ew fixation. Redemonstrated impacted subcapital right femoral neck fracture without any significant displacement. Hypertrophic facet arthropathy visualized lower lumbar spine with moderate to advanced degenerative d isc disease L5-S1. Allowing for osteopenia, no discrete pelvic or sacral fracture is identified. There is some degenerat bess change at the right SI joint. Moderate degenerative change at both hips. IMPRESSION: 1. CONFIRMATION OF AN IMPACTED SUBCAPITAL RIGHT FEMORAL NECK FRACTURE. BACKGROUND OF MARKED OSTEOPENI A. 2. PREVIOUS PERCUTANEOUS SCREW FIXATION LEFT FEMORAL NECK. 3. 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 THERE ARE SYNOVIAL CALCIFICATIONS WHICH MAY REFLECT CPPD. 4. ALLOWING FOR THE OSTEOPENIA, NO CONVINCING ADDITIONAL PELVIC OR SACRAL FRACTURE IDENTIFIED.
[2020-11-16] MEDS ORDERED: hydrALAZINE HCL 20 MG/ML 1 ML VIAL IVP PRN (16:04)
--- NOTE | 2020-11-16 16:07 | P.CONS ---
History of Present Illness - Reason for Consult Consult date: 11/16/20 Medical management Requesting physician: Mike Self - Chief Complaint Right Hip fracture - History of Present Illness HISTORY OF PRESENT ILLNESS: This is an 85-year-old female patient of mine with PMH of hypertension, hyperlipidemia, gastroesophageal reflux disease and esophagitis, vascular dementia. Patient had a fall this morning and was brought in to [facility] for evaluation. Patient is unable to provide reliable history due to underlying dementia. Patient was found to be afebrile, heart rate 76, blood pressure initially 190/106. Pulse ox 97% on room air. EKG was a sinus rhythm with no acute ST changes. WBC 16.1, hemoglobin 11.8, platelet count 212. Electrolytes were normal. BUN 24 creatinine 1.02. Blood sugar 99. Coronavirus PCR not detected. CAT scan of the brain revealed moderate cerebral atrophy and mild changes of chronic small vessel ischemic change. No acute intracranial abnormality. No a cute fracture or malalignment of the cervical spine. Moderate spondylotic change. Possible 1.6 cm left thyroid nodule. Right hip and pelvic x-ray revealed right hip fracture. Chest x-ray reveals no acute process. Patient has been admitted to care of orthopedic service and pelvic CAT scan has been ordered. Right hip hemiarthroplasty is scheduled for tomorrow. REVIEW OF SYSTEMS: Constitutional: No documented fever, no chills, no night sweats. No weight change. No weakness, fatigue or lethargy. No daytime sleepiness. EENT: No headache. No blurred vision or double vision, no loss of vision. No loss of Hearing, no ringing in the ears, no dizziness. No nasal drainage or congestion. No epistaxis. No sore throat. Lungs: No shortness of breath, no cough, no sputum production. No wheezing. Reports dyspnea with activity. Cardiovascular: No chest pain, no lower extremity edema. No palpitations. No paroxysmal nocturnal dyspnea. No orthopnea. No lightheadedness or dizziness. No syncopal episodes. Abdominal: Denies abdominal pain. No nausea, vomiting. No diarrhea. No constipation. No bloody or tarry stools reports loss of appetite. Genitourinary: No dysuria, increased frequency, urgency. No urinary retention. Musculoskeletal: No myalgias. No muscle weakness, no gait dysfunction, no frequent falls. No back pain. No neck pain. Reports right hip pain. Integumentary: No wounds, no lesions. No rash or pruritus. No unusual bruising. No change in hair or nails. Neurologic: No aphasia. No facial droop. No change in mentation.Reports chronic confusion. No head injury. No headache. No paralysis. No paresthesia. Psychiatric: No depression. No anxiety. No mood swings. Endocrine: No abnormal blood sugars. No weight change. PAST MEDICAL HISTORY: Hypertension Hyperlipidemia Gastroesophageal reflux disease and esophagitis Vascular dementia PAST SURGICAL HISTORY: Small bowel obstruction with KAIT in 2018 Cholecystectomy 2000 Cataract removal and intraocular lens implants Total hysterectomy due to fallopian tube Colonoscopy SOCIAL HISTORY: Patient started smoking as a teenager and quit more than 30 years ago. no alcohol use, no marijuana use. FAMILY HISTORY: Father at age 75 from prostate cancer. Mother at age 65 from heart failure and renal failure. Patient has one daughter with no major medical problems. PHYSICAL EXAMINATION: General: this is an 85-year-old female. She is resting in bed and appears to be comfortable and in no acute distress. HEENT: Head is atraumatic, normocephalic, pupils were equal round reactive to light and recommendation, extraocular muscle movement were intact, sclera nonicteric, conjunctivae were pale, mucous membranes of the mouth are somewhat dry. Neck: Supple, no JVP, normal carotid upstroke bilaterally, no lymphadenopathy. Chest: Decreased breath sounds at the bases, few rhonchi, no extremity wheezes, no chest wall tenderness, no intercostal retractions. Heart: First heart sound is depressed, second heart sounds normal. there is a 2/6 systolic ejection murmur at the left sternal border. No S3, S4. No JVP. Abdomen: Soft, nontender, nondistended, positive bowel sounds. Extremities: There is no edema no calf tenderness DP +2 bilaterally. No shortening/external rotation of the right leg. herself pedis +2 bilaterally. Neurologic examination: Patient is awake alert and oriented to person. She is pleasantly confused, cranial nerves II-12 appear grossly intact, muscle power were 5 out of 5 in upper extremities and 5 out of 5 in bilateral lower extremities, deep tendon reflexes normal bilaterally. ASSESSMENT AND PLAN: 1. Right hip fracture. Patient is scheduled for right hip hemiarthroplasty tomorrow with Dr. Self. Continuemorphine 4 mg IV every 4 hours as needed for pain, Zofran 4 mg IV push every 8 hours as needed for nausea. Incentive spirometry to reduce incidence of atelectasis and hospital-acquired pneumonia. Increase IV fluids to 75 mL/h, nothing by mouth after midnight. 2. Leukocytosis most likely secondary to fracture. Repeat CBC tomorrow. 3. Hypertension. Continue hydrochlorothiazide 12.5 mg oral daily, lisinopril 40 mg daily, hydralazine 10 mg IV push every 6 hours as needed for systolic blood pressure greater than 160. 4. Hyperlipidemia. Continue atorvastatin 40 mg daily. 5. Gastroesophageal reflux disease. Continue Protonix 40 mg daily. 6. Vascular dementia. Continue Aricept 10 mg daily, Namenda 5 mg daily. 7. DVT prophylaxis. LORNE goodwin and Rosita. Patient will be admitted to the hospital for minimum after midnights today. DISCHARGE PLAN: Subacute rehab Past Medical History Past Medical History: GERD/Reflux, Hyperlipidemia, Hypertension Additional Past Medical History / Comment(s): dementia History of Any Multi-Drug Resistant Organisms: None Reported Past Surgical History: Bowel Resection, Hysterectomy, Orthopedic Surgery Additional Past Surgical History / Comment(s): left hip, bowel resection Past Anesthesia/Blood Transfusion Reactions: No Reported Reaction Past Psychological History: No Psychological Hx Reported Smoking Status: Former smoker Past Alcohol Use History: None Reported Past Drug Use History: None Reported - Past Family History Daughter(s) Family Medical History: No Reported History Mother Family Medical History: Coronary Artery Disease (CAD), Myocardial Infarction ([place]) Medications and Allergies Home Medications Medication Instructions Recorded Confirmed Type Donepezil [Aricept] 10 mg PO DAILY 08/14/18 11/16/20 History hydroCHLOROthiazide [Hydrodiuril] 12.5 mg PO DAILY cap 08/23/18 11/16/20 Rx Aspirin EC [Ecotrin Low Dose] 81 mg PO DAILY 11/16/20 11/16/20 History Atorvastatin [Lipitor] 40 mg PO DAILY 11/16/20 11/16/20 History Memantine [Namenda] 5 mg PO DAILY 11/16/20 11/16/20 History Omeprazole 20 mg PO DIRECTED 11/16/20 11/16/20 History lisinopriL 40 mg PO DAILY 11/16/20 11/16/20 History Allergies Allergy/AdvReac Type Severity Reaction Status Date / Time No Known Allergies Allergy Verified 11/16/20 11:54 Physical Exam Vitals: Vital Signs Temp Pulse Resp BP Pulse Ox 11/16/20 14:17 84 16 147/78 98 11/16/20 09:51 98.2 F 76 20 190/106 97 Intake and Output 11/15/20 11/16/20 11/16/20 22:59 06:59 14:59 Other: Weight 68.039 kg Results CBC & Chem 7: 11/16/20 09:59 11/16/20 09:59 Labs: Abnormal Lab Results - Last 24 Hours (Table) 11/16/20 11/16/20 11/16/20 Range/Units 09:59 09:59 09:59 WBC 16.1 H (3.8-10.6) k/uL Neutrophils # 13.1 H (1.3-7.7) k/uL Monocytes # 1.3 H (0-1.0) k/uL APTT 20.6 L (22.0-30.0) sec BUN 24 H (7-17) mg/dL
[2020-11-16] MEDS: PANTOPRAZOLE 40 MG TABLET PO SCH (17:17)
[2020-11-16] MEDS: lisinopriL 20 MG TAB PO SCH (17:17)
[2020-11-16] MEDS: hydroCHLOROthiazide 12.5 MG CAP PO SCH (17:17)
--- NOTE | 2020-11-16 17:26 | XR ---
EXAMINATION TYPE: XR femur RT DATE OF EXAM: 11/16/2020 COMPARISON: NONE HISTORY: Pain TECHNIQUE: 4 views FINDINGS: There is acute subcapital fracture right femur with mild impaction. There is no dislocation . There is some narrowing of the knee joint spaces with calcification of the menisci. There is small knee joint effusion. There is vascular calcification. IMPRESSION: Acute subcapital fracture right femur which is a change compared to the abdomen x-ray of 08/16/2018.
--- NOTE | 2020-11-16 19:00 | P.HPOR ---
<Michele Dexter - Last Filed: 11/16/20 14:02> History of Present Illness H&P Date: 11/16/20 Chief Complaint: right hip pain An 85-year-old female with history of dementia presents to the ER with right hip pain status post fall at assisted living. Patient seen at bedside this morning while she was lying supine, with daughter at her side. Patient says she was at her place this morning when she was in the kitchen she slipped and fell. Patient is unsure if she tripped on anything but said she was in excruciating pain in her right leg. She says pain is mostly along the upper right leg Patient does say normally she does use a walker Patient has since been unable to bear weight on the right leg. Patient denies any numbness/tingling down the right side. Patient denies any chest pain, fever, shortness of breath, change in vision. Patient denies saddle anesthesia. Patient denies loss of b owel/bladder control. Patient does have a previous history of left hip fracture with percutaneous pinning. Daughter says this was over 20 years ago. Patient denies any other previous orthopedic surgeries. Patient is not on any blood thinners. Past Medical History Past Medical History: GERD/Reflux, Hyperlipidemia, Hypertension Additional Past Medical History / Comment(s): dementia History of Any Multi-Drug Resistant Organisms: None Reported Past Surgical History: Bowel Resection, Hysterectomy, Orthopedic Surgery Additional Past Surgical History / Comment(s): left hip, bowel resection Past Anesthesia/Blood Transfusion Reactions: No Reported Reaction Past Psychological History: No Psychological Hx Reported Smoking Status: Former smoker Past Alcohol Use History: None Reported Past Drug Use History: None Reported - Past Family History Daughter(s) Family Medical History: No Reported History Mother Family Medical History: Coronary Artery Disease (CAD), Myocardial Infarction ([place]) Medications and Allergies Home Medications Medication Instructions Recorded Confirmed Type Donepezil [Aricept] 10 mg PO DAILY 08/14/18 11/16/20 History hydroCHLOROthiazide [Hydrodiuril] 12.5 mg PO DAILY cap 08/23/18 11/16/20 Rx Aspirin EC [Ecotrin Low Dose] 81 mg PO DAILY 11/16/20 11/16/20 History Atorvastatin [Lipitor] 40 mg PO DAILY 11/16/20 11/16/20 History Memantine [Namenda] 5 mg PO DAILY 11/16/20 11/16/20 History Omeprazole 20 mg PO DIRECTED 11/16/20 11/16/20 History lisinopriL 40 mg PO DAILY 11/16/20 11/16/20 History Allergies Allergy/AdvReac Type Severity Reaction Status Date / Time No Known Allergies Allergy Verified 11/16/20 11:54 Physical Examination Inspection: Shortening and internal rotation of right leg. Minimal ecchymosis along the lateral upper one third of the right femur. No evidence of open fractures. Negative for any significant discoloration other than as noted. Negative for nodules, erythema. Sensation: Sensation is intact in bilateral upper extremities symmetric, equal in distribution. Sensation is intact in bilateral lower extremities symmetric, equal in distribution Palpation: Significant tenderness to palpation over the proximal right femur along the head of the femur. Nontender to palpation throughout rest of exam Range of motion: Limited range of motion in the right leg due to patient being in significant pain. Decreased hip flexion in right leg. Bilateral upper extremities full range of motion in elbow extension/flexion as well as shoulder internal and external rotation abduction and forward elevation. Left lower extremity full range of motion and knee flexion extension and hip flexion extension. Plantar and dorsiflexion full range of motion bilaterally Motor: Strength 5 out of 5 in upper extremities as well as color shop helper strength. Left lower extremity 5/5 in resisted flexion extension and hip flexion extension. Right leg exam limited due to patient being in significant amount of pain Neurovascular status/tensioning signs: Refill under 3 seconds bilaterally in lower and upper extremities. Skin mildly warm to touch in hands bilaterally as well as bilaterally in the lower extremities. Dorsalis pedis pulses intact, 2+ bilaterally. Radial pulses intact, 2+ bilaterally. Negative Homans bilaterally. Negative Kendall's bilaterally. Negative clonus upon dorsiflexing feet bilaterally. Results - Labs Labs: Abnormal Lab Results - Last 24 Hours (Table) 11/16/20 11/16/20 11/16/20 Range/Units 09:59 09:59 09:59 WBC 16.1 H (3.8-10.6) k/uL Neutrophils # 13.1 H (1.3-7.7) k/uL Monocytes # 1.3 H (0-1.0) k/uL APTT 20.6 L (22.0-30.0) sec BUN 24 H (7-17) mg/dL H & H 11/16/20 Range/Units 09:59 Hgb 11.8 (11.4-16.0) gm/dL Hct 34.2 (34.0-46.0) % Coagulation 11/16/20 Range/Units 09:59 INR 1.0 (<1.2) Result Diagrams: 11/16/20 09:59 11/16/20 09:59 Assessment and Plan Assessment: 1. Right femoral neck fracture status post fall 2. Multiple medical comorbidities Plan: 1. Right femoral neck fracture status post fall - surgery scheduled for tomorrow at 1304 right hip hemiarthroplasty. Patient nothing by mouth after midnight tonight. 2. Appreciate medical management - needs medical clearance before surgery 3. Pain management - stable at this time 4. GI ppx/DVT ppx- hold heparin at this time 5. PT/OT - nonweightbearing on right leg Time with Patient: Less than 30 <Mike Self - Last Filed: 11/16/20 18:59> Physical Examination Osteopathic Statement: *. No significant issues noted on an osteopathic structural exam other than those noted in the History and Physical/Consult. Results - Labs Labs: Abnormal Lab Results - Last 24 Hours (Table) 11/16/20 11/16/20 11/16/20 Range/Units 09:59 09:59 09:59 WBC 16.1 H (3.8-10.6) k/uL Neutrophils # 13.1 H (1.3-7.7) k/uL Monocytes # 1.3 H (0-1.0) k/uL APTT 20.6 L (22.0-30.0) sec BUN 24 H (7-17) mg/dL H & H 11/16/20 Range/Units 09:59 Hgb 11.8 (11.4-16.0) gm/dL Hct 34.2 (34.0-46.0) % Coagulation 11/16/20 Range/Units 09:59 INR 1.0 (<1.2) Result Diagrams: 11/16/20 09:59 11/16/20 09:59
[2020-11-17] MEDS: MORPHINE SULFATE 4 MG/ML SYRINGE IV PRN ×3 (04:59→18:33)
[2020-11-17] MEDS: SODIUM CHLORIDE 0.9% 1,000 ML IV SCH ×3 (05:03→16:40)
--- NOTE | 2020-11-17 08:07 | P.PN ---
Subjective Progress Note Date: 11/17/20 HISTORY OF PRESENT ILLNESS: This is an 85-year-old female patient of mine with PMH of hypertension, hyperlipidemia, gastroesophageal reflux disease and esophagitis, vascular dementia. Patient had a fall this morning and was brought in to [facility] for evaluation. Patient is unable to provide reliable history due to underlying dementia. Patient was found to be afebrile, heart rate 76, blood pressure initially 190/106. Pulse ox 97% on room air. EKG was a sinus rhythm with no acute ST changes. WBC 16.1, hemoglobin 11.8, platelet count 212. Electrolytes were normal. BUN 24 creatinine 1.02. Blood sugar 99. Coronavirus PCR not detected. CAT scan of the brain revealed moderate cerebral atrophy and mild changes of chronic small vessel ischemic change. No acute intracranial abnormality. No acute fracture or malalignment of the cervical spine. Moderate spondylotic change. Possible 1.6 cm left thyroid nodule. Right hip and pelvic x-ray revealed right hip fracture. Chest x-ray reveals no acute process. Patient has been admitted to care of orthopedic service and pelvic CAT scan has been ordered. Right hip hemiarthroplasty is scheduled for tomorrow. 11/17: Patient is scheduled for surgery today. She continues to have pain the the right hip area. She has been afebrile, HR 79, BP 140/57, PO 92% on room air. Femur x-ray done yesterday afternoon reveals acute subcapital fracture right femur. CAT scan of the pelvis revealed confirmation of impacted subcapital right femur oral neck fracture in background of marked osteopenia. Previous percutaneous screw fixation of the left femoral neck. 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 Allowing for osteopenia, no convincing additional pelvic or sacral fracture identified. Updated patient's daughter, Eve, over the phone. REVIEW OF SYSTEMS: Constitutional: No documented fever, no chills, no night sweats. No weight change. No weakness, fatigue or lethargy. No daytime sleepiness. EENT: No headache. No blurred vision or double vision, no loss of vision. No loss of Hearing, no ringing in the ears, no dizziness. No nasal drainage or congestion. No epistaxis. No sore throat. Lungs: No shortness of breath, no cough, no sputum production. No wheezing. Reports dyspnea with activity. Cardiovascular: No chest pain, no lower extremity edema. No palpitations. No paroxysmal nocturnal dyspnea. No orthopnea. No lightheadedness or dizziness. No syncopal episodes. Abdominal: Denies abdominal pain. No nausea, vomiting. No diarrhea. No constipation. No bloody or tarry stools reports loss of appetite. Genitourinary: No dysuria, increased frequency, urgency. No urinary retention. Musculoskeletal: No myalgias. No muscle weakness, no gait dysfunction, no frequent falls. No back pain. No neck pain. Reports right hip pain. Integumentary: No wounds, no lesions. No rash or pruritus. No unusual bruising. No change in hair or nails. Neurologic: No aphasia. No facial droop. No change in mentation.Reports chronic confusion. No head injury. No headache. No paralysis. No paresthesia. Psychiatric: No depression. No anxiety. No mood swings. Endocrine: No abnormal blood sugars. No weight change. PHYSICAL EXAMINATION: General: this is an 85-year-old female. She is resting in bed and appears to be comfortable and in no acute distress. HEENT: Head is atraumatic, normocephalic, pupils were equal round reactive to light and recommendation, extraocular muscle movement were intact, sclera nonicteric, conjunctivae were pale, mucous membranes of the mouth are somewhat dry. Neck: Supple, no JVP, normal carotid upstroke bilaterally, no lymphadenopathy. Chest: Decreased breath sounds at the bases, few rhonchi, no extremity wheezes, no chest wall tenderness, no intercostal retractions. Heart: First heart sound is depressed, second heart sounds normal. there is a 2/6 systolic ejection murmur at the left sternal border. No S3, S4. No JVP. Abdomen: Soft, nontender, nondistended, positive bowel sounds. Daugherty catheter draining clear vern urine. Extremities: There is no edema no calf tenderness DP +2 bilaterally. No shortening/external rotation of the right leg. herself pedis +2 bilaterally. Neurologic examination: Patient is awake alert and oriented to person. She is pleasantly confused, cranial nerves II-12 appear grossly intact, muscle power were 5 out of 5 in upper extremities and 5 out of 5 in bilateral lower extremities, deep tendon reflexes normal bilaterally. ASSESSMENT AND PLAN: 1. Right hip fracture. Patient is scheduled for right hip hemiarthroplasty tomorrow with Dr. Self. Continuemorphine 4 mg IV every 4 hours as needed for pain, Zofran 4 mg IV push every 8 hours as needed for nausea. Incentive spirometry to reduce incidence of atelectasis and hospital-acquired pneumonia. Increase IV fluids to 75 mL/h, nothing by mouth after midnight. 2. Leukocytosis most likely secondary to fracture. Repeat CBC tomorrow. 3. Hypertension. Continue hydrochlorothiazide 12.5 mg oral daily, lisinopril 40 mg daily, hydralazine 10 mg IV push every 6 hours as needed for systolic blood pressure greater than 160. 4. Hyperlipidemia. Continue atorvastatin 40 mg daily. 5. Gastroesophageal reflux disease. Continue Protonix 40 mg daily. 6. Vascular dementia. Continue Aricept 10 mg daily, Namenda 5 mg daily. 7. DVT prophylaxis. LORNE goodwin and Rosita. DISCHARGE PLAN: Subacute rehab Impression and plan of care have been directed as dictated by the signing physician. Kayley Jasso nurse practitioner acting as scribe for signing physician. Objective - Vital Signs Vital signs: Vital Signs Temp 99.2 F 11/17/20 02:00 Pulse 79 11/17/20 02:00 Resp 18 11/17/20 02:00 BP 140/57 11/17/20 02:00 Pulse Ox 92 L 11/17/20 02:00 Intake & Output 11/16/20 11/17/20 11/17/20 18:59 06:59 18:59 Intake Total 540 Output Total 400 900 Balance 140 -900 Weight 68.039 kg Intake: Oral 540 Output: Urine 400 900 Other: Voiding Method Indwelling Catheter - Labs CBC & Chem 7: 11/16/20 09:59 11/16/20 09:59 Labs: Abnormal Lab Results - Last 24 Hours (Table) 11/16/20 11/16/20 11/16/20 Range/Units 09:59 09:59 09:59 WBC 16.1 H (3.8-10.6) k/uL Neutrophils # 13.1 H (1.3-7.7) k/uL Monocytes # 1.3 H (0-1.0) k/uL APTT 20.6 L (22.0-30.0) sec BUN 24 H (7-17) mg/dL
[2020-11-17] MEDS: PANTOPRAZOLE 40 MG TABLET PO SCH (09:06)
[2020-11-17] MEDS: DONEPEZIL 10 MG TAB PO SCH (09:06)
[2020-11-17] MEDS: lisinopriL 20 MG TAB PO SCH (09:06)
[2020-11-17] MEDS: ATORVASTATIN 40 MG TAB PO SCH (09:06)
[2020-11-17] MEDS: MEMANTINE 5 MG TAB PO SCH (09:06)
[2020-11-17] MEDS: hydroCHLOROthiazide 12.5 MG CAP PO SCH (09:06)
[2020-11-17 09:15] LABS: HCT 33.2 % (37.2-46.3); HGB 10.6 g/dL (12.0-15.0); MCH 29.3 pg (27.0-32.0); MCHC 31.9 g/dL (32.0-37.0); MCV 91.7 fL (80.0-97.0); Mean Platelet Volume 12.6 fL (9.5-12.2); Platelet Count 202 X 10*3/uL (140-440); RBC 3.62 X 10*6/uL (4.10-5.20); RDW 13.8 % (11.5-14.5); WBC 10.24 X 10*3/uL (4.50-10.00)
[2020-11-17] MEDS ORDERED: IV FLUID CONTINUATION 1,000 ML IV ONE (11:29)
[2020-11-17] MEDS ORDERED: ONDANSETRON 4 MG/2 ML VIAL IVP ONE (11:43)
[2020-11-17] MEDS ORDERED: GLYCOPYRROLATE 0.2 MG/ML 2 ML VIAL ONE (12:40)
[2020-11-17] MEDS ORDERED: KETAMINE 10 MG/ML 20 ML VIAL ONE (12:40)
[2020-11-17] MEDS ORDERED: PROPOFOL 10 MG/ML 20 ML VIAL IV ONE (12:40)
[2020-11-17] MEDS ORDERED: MIDAZOLAM 2 MG/2 ML VIAL ONE (12:40)
[2020-11-17] MEDS ORDERED: TRANEXAMIC ACID 1,000 MG/10 ML VIAL ONE (12:40)
[2020-11-17] MEDS ORDERED: PHENYLEPHRINE-0.9% NACL SYG 1,000 MCG/10 ML SYRINGE ONE (12:40)
[2020-11-17] MEDS ORDERED: diphenhydrAMINE 50 MG/ML 1 ML VIAL ONE (12:40)
[2020-11-17] MEDS ORDERED: fentaNYL (PF) 50 MCG/ML 2 ML AMP ONE (12:40)
[2020-11-17] MEDS ORDERED: SODIUM CHLORIDE 0.9% 100 ML BAG ONE (12:40)
[2020-11-17] MEDS ORDERED: SODIUM CHLORIDE 0.9% 100 ML with ceFAZolin 2,000 MG IV ONE ×2 (13:00)
[2020-11-17] MEDS ORDERED: TRANEXAMIC ACID 1,000 MG in SODIUM CHLORIDE 0.9% 100 ML IVPB STA ×2 (13:04→13:10)
[2020-11-17] MEDS ORDERED: ceFAZolin 3,000 MG in SODIUM CHLORIDE 0.9% IRRIGATIO 3,000 ML IRRIGATION ONE (14:48)
[2020-11-17] MEDS ORDERED: LACTATED RINGERS 1,000 ML IV ONE (15:06)
[2020-11-17] MEDS ORDERED: HYDROcodone/APAP 5-325MG 1 EACH TAB PO PRN (15:24)
[2020-11-17] MEDS ORDERED: hydrALAZINE HCL 20 MG/ML 1 ML VIAL IVP ONE (15:41)
[2020-11-17 15:48] LABS: African American GFR (CKD) 66.6 (60.0-200.0); Albumin/Globulin Ratio 1.67 (1.60-3.17); Anion Gap 9.1 mmol/L (4.00-12.00); Calcium 8.9 mg/dL (8.7-10.3); Carbon Dioxide 21.9 mmol/L (21.6-31.8); Globulin 2.4 g/dL (1.6-3.3); Non-African American GFR(CKD) 57.5 (60.0-200.0); Potassium 4.3 mmol/L (3.5-5.5); Total Bilirubin 0.8 mg/dL (0.2-1.2); Total Protein 6.4 g/dL (6.2-8.2)
--- NOTE | 2020-11-17 15:55 | XR ---
Limited right hip HISTORY: Status post right hip arthroplasty Single frontal view of the right hip Patient is status post right hip arthroplasty. There is anatomic alignment. There are overlying stapl es, lucencies present in the soft tissues. Probable phleboliths present within the pelvis. Bone computer forensic examiner alization is reduced. Degenerative disc change in the visualized spine. IMPRESSION: Orthopedic follow-up.
--- NOTE | 2020-11-17 17:23 | P.OP ---
Date of Procedure: 11/17/20 Preoperative Diagnosis: 1. Right hip subcapital, impacted, complete femoral neck fracture 2. s/p ffs 3. complex medical patient Postoperative Diagnosis: 1. Right hip subcapital, impacted, complete femoral neck fracture 2. s/p ffs 3. complex medical patient Procedure(s) Performed: 1. Right hip hemiarthroplasty Implants: Scott and nephew Polar stem size 3 stem, 44 biopolar head, -3 head, standard neck Anesthesia: local, spinal Surgeon: Mike Self Legal Word Processor #1: Michele Dexter (Was present for the entire case and necessary due to the complexity of the case) Estimated Blood Loss (ml): 150 IV fluids (ml): 1,500 Urine output (ml): 500 Pathology: none sent Condition: stable Disposition: PACU Indications for Procedure: A 5-year-old female sustained a fall from standing at home at her assisted living with right hip pain is unable ambulate afterward she was found to have a subcapital impacted complete high Pawels angle femoral neck fracture. Discussed options the patient for conservative versus surgical management her and her significant other and son opted for surgical treatment at this time. She is cleared by medicine prior surgery. Operative Findings: Right hip fracture Description of Procedure: The patient was seen and examined in the preoperative area. All preoperative protocols were followed. Informed consent was obtained risks and benefits of the procedure were discussed at length. Risks including bleeding infection damage to the surrounding tissue and risk of reoperation were discussed with the patient. Risk of anesthesia up to and including was a discussed with the patient. These are outlined in the risk reviewed. They were willing to accept these risks and all of the risks of surgery. The patient was given a weight- based dose of antibiotics in the form of 2 g Ancef IVPB 1. The patient was seen and evaluated by the anesthesia team who deemed them fit for surgery. The site was marked, the patient was willing to proceed with the procedure. The patient was transferred to the operative suite by the Department of anesthesia. There were then drifted off to sleep by the department of anesthesia and spinal anesthesia with local sedation anesthesia was used. Once adequate anesthesia had been obtained the patient was carefully transferred to the operative bed. All bony prominences were padded accordingly. SCDs were placed on the nonoperative lower extremities. Arms were well padded. She was placed in the left lateral decubitus position with right side up axilla ry roll was placed underneath her left axilla her left lower extremity is well- padded and the peroneal as well as the ankle region. It was secured to the table with a blanket and tape. PEG board was placed and pegs were placed in the appropriate area. Patient's right hip was exposed 10:15 drapes placed around the patient's right hip. Preoperative briefing was done with the operative team and everyone was ready for the procedure to start. The patients right leg was then prepped and draped in the normal sterile fashion. Timeout was then performed and all parties in agreement with the procedure to be performed. Skin incision was marked to centers proximal to the tip of the greater trochanter in line with the femur and slightly posteriorly on the greater trochanter skin incision was made over this area. Dissection taken down to the tensor fascia which was then split in line with its fibers. Once through the tensor fascia the gluteus lauren was bluntly split at its origin. The Charnley retractor was then placed. This allowed visualization of the right hip and the gluteus medius region as well as the piriformis and the external rotators. We did clean the bursa off the area with electrocautery dissection once the bursa was cleaned form capsulotomy and a L-shaped Capsulotomy type fashion. This travel along the superior edge of the femoral neck to the vastus ridge and then traveled distally to the lesser trochanter region. With exposure the fracture was cleaned using a rongeur as there is a lot of osteophytic formation and the fracture was somewhat rotated this area. We then performed a cleanup cut using a saw and a jig for a complete 45 angle cut. The acetabulum was protected during this with Homans. Once this was accomplished then placed this corkscrew within the femoral head and the femoral head was then removed. This was then sized for our trial. We then irrigated out the acetabulum and cleaned any extra bone fragments onto the area we then trialed the bipolar head we did downsize the head as the femoral head was slightly overgrown secondary to osteophytic changes and once we downsize the head there was a good fit and suction fit in this area. Then turned our attention to the femur the patient's leg was internally rotated and flexed down to allow visualization femoral canal. Box osteotome was used to access laterally the femoral canal followed by a rat tailed to allow for rasping and to ensure within the canal and then placed the lateralizer in chili Pepper in this area which allowed for lateralization. We then performed sequential broaching up to a size 3. Once we placed the size 3 talus sitting in decent position but slightly loose and so we placed a size 4 broach which would not seat so that we return to the size 3 allowed us to seat appropriately and plain appropriately the calcar region. We then placed a planer over the calcar region to allow for good calcar planing. The 3 broach was seated well and was stable and so we then selected a standard neck with a -3 head. This was then trialed and the trial was successful we liked our length as well as our offset. And the hip was stable throughout range of motion. We then dislocated the hip carefully and checked the broach it was stable. This was then removed and we copiously irrigated the femoral canal as well as the acetabulum with antibiotic irrigation 3 L. We then placed the final stem and the final stem was impacted into place and had a good fit and inset appropriately. Then selected the bipolar components and assembled them on the back table. We then cleaned the trunnion and placed the head of the bipolar in place we then impacted into place and checked and was stable. We then carefully reduced the hip. Once the hip was reduced which it through a range of motion and checked leg lengths leg lengths were appropriate and the range of motion was satisfactory. The hip was also stable throughout range of motion. Then copiously irrigated the wound and the implants with antibiotic irrigation. Once this was performed with an performed a capsular closure. A 20 drill bit was used to drill 2 holes in the greater trochanteric region posteriorly were then passed a suture passer. Ethibond stitches were then placed into the capsule and then passed through the drill holes. We then closed and and the capsule in the L portion that we made. Once this was completed we then tied the capsule to the greater trochanter. This was then oversewn with some more 5 Ethibond. It allowed for good capsular closure in the area. We then removed the trial and palpated for the sciatic nerve which was intact and actually visualized. We then took care to protect this has we closed the tensor fascia with #1 Vicryl in a running locking fashion. This approximated the edges very well. We then closed the subcu with 0 Vicryl followed by 2-0 Vicryl and the skin was closed with mumtaz. We then clean the wound and dressed it with a sterile Aquasol dressing. The patient was then transferred back to their hospital bed. There were awakened by department of anesthesia having tolerated the procedure very well with no complications. She was placed in a hip abduction brace. The patient was then transported to the postoperative care unit in stable condition.
[2020-11-17] MEDS: SENNOSIDES-DOCUSATE SODIUM 1 EACH TAB PO SCH (22:07)
[2020-11-18] MEDS: MORPHINE SULFATE 4 MG/ML SYRINGE IV PRN ×2 (00:03→04:59)
[2020-11-18] MEDS: ATORVASTATIN 40 MG TAB PO SCH (07:12)
[2020-11-18] MEDS: hydroCHLOROthiazide 12.5 MG CAP PO SCH (07:12)
[2020-11-18] MEDS: lisinopriL 20 MG TAB PO SCH (07:12)
[2020-11-18] MEDS: MEMANTINE 5 MG TAB PO SCH (07:13)
[2020-11-18] MEDS: DONEPEZIL 10 MG TAB PO SCH (07:13)
[2020-11-18] MEDS: PANTOPRAZOLE 40 MG TABLET PO SCH (07:13)
[2020-11-18] MEDS ORDERED: MORPHINE SULFATE 4 MG/ML SYRINGE IV PRN (07:22)
[2020-11-18] MEDS ORDERED: HYDROcodone/APAP 5-325MG 1 EACH TAB PO PRN (07:22)
[2020-11-18] MEDS: CYCLOBENZAPRINE 5 MG TAB PO PRN ×2 (07:40→17:52)
[2020-11-18] MEDS: SODIUM CHLORIDE 0.9% 1,000 ML IV SCH ×2 (07:42→11:27)
--- NOTE | 2020-11-18 08:43 | P.PN ---
Subjective Progress Note Date: 11/18/20 HISTORY OF PRESENT ILLNESS: This is an 85-year-old female patient of mine with PMH of hypertension, hyperlipidemia, gastroesophageal reflux disease and esophagitis, vascular dementia. Patient had a fall this morning and was brought in to [facility] for evaluation. Patient is unable to provide reliable history due to underlying dementia. Patient was found to be afebrile, heart rate 76, blood pressure initially 190/106. Pulse ox 97% on room air. EKG was a sinus rhythm with no acute ST changes. WBC 16.1, hemoglobin 11.8, platelet count 212. Electrolytes were normal. BUN 24 creatinine 1.02. Blood sugar 99. Coronavirus PCR not detected. CAT scan of the brain revealed moderate cerebral atrophy and mild changes of chronic small vessel ischemic change. No acute intracranial abnormality. No acute fracture or malalignment of the cervical spine. Moderate spondylotic change. Possible 1.6 cm left thyroid nodule. Right hip and pelvic x-ray revealed right hip fracture. Chest x-ray reveals no acute process. Patient has been admitted to care of orthopedic service and pelvic CAT scan has been ordered. Right hip hemiarthroplasty is scheduled for tomorrow. 11/17: Patient is scheduled for surgery today. She continues to have pain the the right hip area. She has been afebrile, HR 79, BP 140/57, PO 92% on room air. Femur x-ray done yesterday afternoon reveals acute subcapital fracture right femur. CAT scan of the pelvis revealed confirmation of impacted subcapital right femur oral neck fracture in background of marked osteopenia. Previous percutaneous screw fixation of the left femoral neck. 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 Allowing for osteopenia, no convincing additional pelvic or sacral fracture identified. Updated patient's daughter, Eve, over the phone. 11/18: Yesterday, patient underwent right hien-arthroplasty of the hip. She was complaining of significant pain and orthopedics has made medication changes to include increasing [place]ad[place] 10 and adding Flexeril. Eliquis will be started tomorrow morning for DVT prophylaxis. Patient has been afebrile, heart rate 92, blood pressure 147/55, pulse ox 92% on room air. Repeat blood work reveals WBC 10.2, hemoglobin 10.6 and platelet count 202. Electrolytes and renal function are normal. Blood sugar 115. Liver function tests are normal. Discharge plan is for [facility] and would expect patient will most likely be ready for discharge tomorrow. REVIEW OF SYSTEMS: Constitutional: No documented fever, no chills, no night sweats. No weight change. No weakness, fatigue or lethargy. No daytime sleepiness. EENT: No headache. No blurred vision or double vision, no loss of vision. No loss of Hearing, no ringing in the ears, no dizziness. No nasal drainage or congestion. No epistaxis. No sore throat. Lungs: No shortness of breath, no cough, no sputum production. No wheezing. Reports dyspnea with activity. Cardiovascular: No chest pain, no lower extremity edema. No palpitations. No paroxysmal nocturnal dyspnea. No orthopnea. No lightheadedness or dizziness. No syncopal episodes. Abdominal: Denies abdominal pain. No nausea, vomiting. No diarrhea. No constipation. No bloody or tarry stools reports loss of appetite. Genitourinary: No dysuria, increased frequency, urgency. No urinary retention. Musculoskeletal: No myalgias. No muscle weakness, no gait dysfunction, no frequent falls. No back pain. No neck pain. Reports right hip pain. Integumentary: No wounds, no lesions. No rash or pruritus. No unusual bruising. No change in hair or nails. Neurologic: No aphasia. No facial droop. No change in mentation.Reports chronic confusion. No head injury. No headache. No paralysis. No paresthesia. Psychiatric: No depression. No anxiety. No mood swings. Endocrine: No abnormal blood sugars. No weight change. PHYSICAL EXAMINATION: General: this is an 85-year-old female. She is resting in bed and appears to be comfortable and in no acute distress. HEENT: Head is atraumatic, normocephalic, pupils were equal round reactive to light and recommendation, extraocular muscle movement were intact, sclera nonicteric, conjunctivae were pale, mucous membranes of the mouth are somewhat dry. Neck: Supple, no JVP, normal carotid upstroke bilaterally, no lymphadenopathy. Chest: Decreased breath sounds at the bases, few rhonchi, no extremity wheezes, no chest wall tenderness, no intercostal retractions. Heart: First heart sound is depressed, second heart sounds normal. there is a 2/6 systolic ejection murmur at the left sternal border. No S3, S4. No JVP. Abdomen: Soft, nontender, nondistended, positive bowel sounds. Daugherty catheter draining clear vern urine. Extremities: There is no edema no calf tenderness DP +2 bilaterally. Dorsalis pedis +2 bilaterally. Neurologic examination: Patient is awake alert and oriented to person. She is pleasantly confused, cranial nerves II-12 appear grossly intact, muscle power were 5 out of 5 in upper extremities and 5 out of 5 in bilateral lower extremities. ASSESSMENT AND PLAN: 1. Right hip fracture. Patient is scheduled for right hip hemiarthroplasty tomorrow with Dr. Self. Continuemorphine 4 mg IV every 3 hours, Cassadaga 10 one every 4 hours as needed for pain, Flexeril 5 mg 3 times daily as needed for pain, Zofran 4 mg IV push every 8 hours as needed for nausea. Incentive spirometry to reduce incidence of atelectasis and hospital-acquired pneumonia. Discontinue IV fluids and encourage oral intake. 2. Leukocytosis most likely secondary to fracture. 3. Hypertension. Continue hydrochlorothiazide 12.5 mg oral daily, lisinopril 40 mg daily, hydralazine 10 mg IV push every 6 hours as needed for systolic blood pressure greater than 160. 4. Hyperlipidemia. Continue atorvastatin 40 mg daily. 5. Gastroesophageal reflux disease. Continue Protonix 40 mg daily. 6. Vascular dementia. Continue Aricept 10 mg daily, Namenda 5 mg daily. 7. DVT prophylaxis. LORNE goodwin and SCDs. DISCHARGE PLAN: [place] most likely on . Impression and plan of care have been directed as dictated by the signing physician. Kayley Jasso nurse practitioner acting as scribe for signing physician. Objective - Vital Signs Vital signs: Vital Signs Temp 98.9 F 11/18/20 06:54 Pulse 92 11/18/20 06:54 Resp 20 11/18/20 06:54 BP 147/55 11/18/20 06:54 Pulse Ox 92 L 11/18/20 06:54 Intake & Output 11/17/20 11/18/20 11/18/20 18:59 06:59 18:59 Intake Total 1701 Output Total 890 400 Balance 811 -400 Intake: IV 1701 Output: Urine 740 400 Estimated Blood Loss 150 Other: Voiding Method Indwelling Catheter Indwelling Catheter - Labs CBC & Chem 7: 11/17/20 05:22 11/17/20 05:22 Labs: Abnormal Lab Results - Last 24 Hours (Table) 11/17/20 11/17/20 Range/Units 05:22 05:22 WBC 10.24 H (4.50-10.00) X 10*3/uL RBC 3.62 L (4.10-5.20) X 10*6/uL Hgb 10.6 L (12.0-15.0) g/dL Hct 33.2 L (37.2-46.3) % MCHC 31.9 L (32.0-37.0) g/dL MPV 12.6 H (9.5-12.2) fL Est GFR (CKD-EPI)NonAf 57.5 L (60.0-200.0) Glucose 115 H (70-110) mg/dL
--- NOTE | 2020-11-18 08:46 | P.PN ---
Subjective Progress Note Date: 11/18/20 Principal diagnosis: R hip fracture Patient seen and examined this morning she is quite painful in her leg this morning. She is not been up yet. She is in bed using her hip abduction brace. She denies any numbness or tingling in her leg she states she is able to move it however is very painful. She denies any fevers chills shortness breath or chest pain this morning. Objective - Vital Signs Vital signs: Vital Signs Temp 98.9 F 11/18/20 06:54 Pulse 92 11/18/20 06:54 Resp 20 11/18/20 06:54 BP 147/55 11/18/20 06:54 Pulse Ox 92 L 11/18/20 06:54 Intake & Output 11/17/20 11/18/20 11/18/20 18:59 06:59 18:59 Intake Total 1701 Output Total 890 400 Balance 811 -400 Intake: IV 1701 Output: Urine 740 400 Estimated Blood Loss 150 Other: Voiding Method Indwelling Catheter Indwelling Catheter - Exam Patient is alert and oriented 3 appears well-nourished well-hydrated is in no acute distress. They does not appear septic. She has some minor tenderness to palpation around the hip incision site or swelling in this area. Lower extremities with 5 out of 5 strength in all major muscle groups except for right hip flexion knee flexion-extension Dors flexion plantarflexion or she has a lot of pain currently. Upper extremities show 5/5 strength in all major muscle groups. There is FROM that is painless of the b/l UE and LE in all major joints. They are intact to light touch sensation in L2 to S1 nerve distribution. DTR 2 out of 40 Patient has palpable dorsalis pedis was posterior tibial pulses. Palpable radial and ulnar pulses bilaterally Compartments are soft and compressible. Negative Homans No tensioning signs. Cranial nerves II through XII are grossly intact. Overall alignment is well-maintained in the sagittal coronal planes. Dressing is clean dry and intact some bruising around the area ligament tenderness to palpation - Labs CBC & Chem 7: 11/17/20 05:22 11/17/20 05:22 Labs: Abnormal Lab Results - Last 24 Hours (Table) 11/17/20 11/17/20 Range/Units 05:22 05:22 WBC 10.24 H (4.50-10.00) X 10*3/uL RBC 3.62 L (4.10-5.20) X 10*6/uL Hgb 10.6 L (12.0-15.0) g/dL Hct 33.2 L (37.2-46.3) % MCHC 31.9 L (32.0-37.0) g/dL MPV 12.6 H (9.5-12.2) fL Est GFR (CKD-EPI)NonAf 57.5 L (60.0-200.0) Glucose 115 H (70-110) mg/dL Assessment and Plan Assessment: A 68-year-old female status post fall from standing right femoral neck fracture Postoperative day 1 right hip hemiarthroplasty Plan: -Appreciate educational consultant and team management. -Activity: Ambulate QID, OOB all meals, up and about, limit lifting bending twisting to less than 5 lbs. Use walker or cane if needed for stability. -Daily PT/OT, increase ambulation strength and balance. -Hip abduction brace when laying in bed -Posterior hip precautions -Pain control: Change pain medication regimen to morphine for every 3, [place] 5- 10 every 4-6 hours when necessary pain scale 1-5 and 6-10. Add Flexeril 5 mg 3 times a day when necessary muscle spasm -Meds: [reviewed] -GI ppx: senna, Miralax -DC natarajan when up and about, bedside commode if needed -DVT PPX: Start Lovenox -Hygiene: Shower daily. Maintain dressing clean and dry. Meticulous cleaning after BMs away from incision site -Encourage IS 10x/hr -Dispo: [Pending]
[2020-11-18 09:23] LABS: HCT 27.7 % (37.2-46.3); HGB 8.7 g/dL (12.0-15.0); MCH 29.4 pg (27.0-32.0); MCHC 31.4 g/dL (32.0-37.0); MCV 93.6 fL (80.0-97.0); Mean Platelet Volume 12.5 fL (9.5-12.2); Platelet Count 174 X 10*3/uL (140-440); RBC 2.96 X 10*6/uL (4.10-5.20); RDW 13.8 % (11.5-14.5); WBC 12.93 X 10*3/uL (4.50-10.00)
[2020-11-18 11:11] LABS: Basophils # (M) 0 X 10*3/uL (0.00-0.10); Eosinophils # (M) 0 X 10*3/uL (0.04-0.35); Lymphocytes # (M) 0.52 X 10*3/uL (0.90-5.00); Monocytes # (M) 0.52 X 10*3/uL (0.20-1.00); Neutrophils % (M) 92 %
[2020-11-18] MEDS: HYDROcodone/APAP 10-325MG 1 EACH TAB PO PRN ×3 (11:25→22:39)
[2020-11-18] MEDS: SENNOSIDES-DOCUSATE SODIUM 1 EACH TAB PO SCH (19:52)
[2020-11-19] MEDS: ATORVASTATIN 40 MG TAB PO SCH (07:45)
[2020-11-19] MEDS: lisinopriL 20 MG TAB PO SCH (07:45)
[2020-11-19] MEDS: PANTOPRAZOLE 40 MG TABLET PO SCH (07:45)
[2020-11-19] MEDS: DONEPEZIL 10 MG TAB PO SCH (07:46)
[2020-11-19] MEDS: SODIUM CHLORIDE 0.9% 1,000 ML IV SCH (07:46)
[2020-11-19] MEDS: MEMANTINE 5 MG TAB PO SCH (07:46)
[2020-11-19] MEDS: hydroCHLOROthiazide 12.5 MG CAP PO SCH (07:48)
[2020-11-19 07:51] VITALS: BP 109/60; PULSE 82; RESP 18; TEMP 98.7
--- NOTE | 2020-11-19 08:20 | P.PN ---
Subjective Progress Note Date: 11/19/20 HISTORY OF PRESENT ILLNESS: This is an 85-year-old female patient of mine with PMH of hypertension, hyperlipidemia, gastroesophageal reflux disease and esophagitis, vascular dementia. Patient had a fall this morning and was brought in to [facility] for evaluation. Patient is unable to provide reliable history due to underlying dementia. Patient was found to be afebrile, heart rate 76, blood pressure initially 190/106. Pulse ox 97% on room air. EKG was a sinus rhythm with no acute ST changes. WBC 16.1, hemoglobin 11.8, platelet count 212. Electrolytes were normal. BUN 24 creatinine 1.02. Blood sugar 99. Coronavirus PCR not detected. CAT scan of the brain revealed moderate cerebral atrophy and mild changes of chronic small vessel ischemic change. No acute intracranial abnormality. No acute fracture or malalignment of the cervical spine. Moderate spondylotic change. Possible 1.6 cm left thyroid nodule. Right hip and pelvic x-ray revealed right hip fracture. Chest x-ray reveals no acute process. Patient has been admitted to care of orthopedic service and pelvic CAT scan has been ordered. Right hip hemiarthroplasty is scheduled for tomorrow. 11/17: Patient is scheduled for surgery today. She continues to have pain the the right hip area. She has been afebrile, HR 79, BP 140/57, PO 92% on room air. Femur x-ray done yesterday afternoon reveals acute subcapital fracture right femur. CAT scan of the pelvis revealed confirmation of impacted subcapital right femur oral neck fracture in background of marked osteopenia. Previous percutaneous screw fixation of the left femoral neck. 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 Allowing for osteopenia, no convincing additional pelvic or sacral fracture identified. Updated patient's daughter, Eve, over the phone. 11/18: Yesterday, patient underwent right hien-arthroplasty of the hip. She was complaining of significant pain and orthopedics has made medication changes to include increasing [place] 10 and adding Flexeril. Eliquis will be started tomorrow morning for DVT prophylaxis. Patient has been afebrile, heart rate 92, blood pressure 147/55, pulse ox 92% on room air. Repeat blood work reveals WBC 10.2, hemoglobin 10.6 and platelet count 202. Electrolytes and renal function are normal. Blood sugar 115. Liver function tests are normal. Discharge plan is for [facility] and would expect patient will most likely be ready for discharge tomorrow. 11/19: Patient appears to be much improved from yesterday. Pain is controlled, she denies any loss of appetite. No nausea or vomiting. No shortness of breath no chest pain. She has not had a bowel movement and she is on Senokot S2 tablets at bedtime which will be continued . Patient was started on eliquis this morning which will continue for 30 days for DVT prophylaxis. Patient has been afebrile, heart rate 82, blood pressure 109/60, pulse ox 95% on room air. She is reaching 750 ML's on simvastatin spirometry and will need reminding to complete. She was cleared from medicine for discharge and will be followed at [facility]. Medication reconciliation completed except for pain medications. REVIEW OF SYSTEMS: Constitutional: No documented fever, no chills, no night sweats. No weight change. No weakness, fatigue or lethargy. No daytime sleepiness. EENT: No headache. No blurred vision or double vision, no loss of vision. No loss of Hearing, no ringing in the ears, no dizziness. No nasal drainage or congestion. No epistaxis. No sore throat. Lungs: No shortness of breath, no cough, no sputum production. No wheezing. R eports dyspnea with activity. Cardiovascular: No chest pain, no lower extremity edema. No palpitations. No paroxysmal nocturnal dyspnea. No orthopnea. No lightheadedness or dizziness. No syncopal episodes. Abdominal: Denies abdominal pain. No nausea, vomiting. No diarrhea. Noted constipation. No bloody or tarry stools reports loss of appetite. Genitourinary: No dysuria, increased frequency, urgency. No urinary retention. Musculoskeletal: No myalgias. No muscle weakness, no gait dysfunction, no frequent falls. No back pain. No neck pain. Reports right hip pain-controlled. Integumentary: No wounds, no lesions. No rash or pruritus. No unusual bruising. No change in hair or nails. Neurologic: No aphasia. No facial droop. No change in mentation.Reports chronic confusion. No head injury. No headache. No paralysis. No paresthesia. Psychiatric: No depression. No anxiety. No mood swings. Endocrine: No abnormal blood sugars. No weight change. PHYSICAL EXAMINATION: General: this is an 85-year-old female. She is resting in bed and appears to be comfortable and in no acute distress. HEENT: Head is atraumatic, normocephalic, pupils were equal round reactive to light and recommendation, extraocular muscle movement were intact, sclera no nicteric, conjunctivae were pale, mucous membranes of the mouth are somewhat dry. Neck: Supple, no JVP, normal carotid upstroke bilaterally, no lymphadenopathy. Chest: Decreased breath sounds at the bases, no wheezes, no rhonchi, no chest wall tenderness, no intercostal retractions. Heart: First heart sound is depressed, second heart sounds normal. there is a 2/6 systolic ejection murmur at the left sternal border. No S3, S4. No JVP. Abdomen: Soft, nontender, nondistended, positive bowel sounds. Daugherty catheter draining clear vern urine. Extremities: There is no edema no calf tenderness DP +2 bilaterally. Dorsalis pedis +2 bilaterally. Neurologic examination: Patient is awake alert and oriented to person. She is pleasantly confused, cranial nerves II-12 appear grossly intact, muscle power were 5 out of 5 in upper extremities and 5 out of 5 in bilateral lower extremities. ASSESSMENT AND PLAN: 1. Right hip fracture status post right hip hemiarthroplasty with Dr. Self. Continue [place] 10 one every 4 hours as needed for pain, Flexeril 5 mg 3 times daily as needed for pain, Zofran 4 mg IV push every 8 hours as needed for nausea. Incentive spirometry to reduce incidence of atelectasis and hospital-acquired pneumonia. Discontinue IV fluids and encourage oral intake. Patient started on eliquis 2.5 mg twice daily for DVT prophylaxis. 2. Leukocytosis most likely secondary to fracture. 3. Hypertension. Continue hydrochlorothiazide 12.5 mg oral daily, lisinopril 40 mg daily, hydralazine 10 mg IV push every 6 hours as needed for systolic blo od pressure greater than 160. 4. Hyperlipidemia. Continue atorvastatin 40 mg daily. 5. Gastroesophageal reflux disease. Continue Protonix 40 mg daily. 6. Vascular dementia. Continue Aricept 10 mg daily, Namenda 5 mg daily. 7. DVT prophylaxis. Eliquis 2.5 mg twice daily for 30 days. DISCHARGE PLAN: Marianne most likely on and the care of Dr. Espinoza. Impression and plan of care have been directed as dictated by the signing physician. Kayley Jasso nurse practitioner acting as scribe for signing physician. Objective - Vital Signs Vital signs: Vital Signs Temp 98.7 F 11/19/20 07:00 Pulse 82 11/19/20 07:00 Resp 18 11/19/20 07:00 BP 109/60 11/19/20 07:00 Pulse Ox 95 11/19/20 07:00 Intake & Output 11/18/20 11/19/20 11/19/20 18:59 06:59 18:59 Output Total 400 800 Balance -400 -800 Output: Urine 400 800 Other: Voiding Method Indwelling Catheter Indwelling Catheter - Labs CBC & Chem 7: 11/18/20 05:17 11/17/20 05:22 Labs: Abnormal Lab Results - Last 24 Hours (Table) 11/18/20 Range/Units 05:17 WBC 12.93 H (4.50-10.00) X 10*3/uL RBC 2.96 L (4.10-5.20) X 10*6/uL Hgb 8.7 L (12.0-15.0) g/dL Hct 27.7 L (37.2-46.3) % MCHC 31.4 L (32.0-37.0) g/dL MPV 12.5 H (9.5-12.2) fL Neutrophils # (Manual) 11.90 H (2.00-8.90) X 10*3/uL Lymphocytes # (Manual) 0.52 L (0.90-5.00) X 10*3/uL Eosinophils # (Manual) 0 L (0.04-0.35) X 10*3/uL
[2020-11-19] MEDS ORDERED: APIXABAN 2.5 MG TABLET PO SCH (09:00)
--- NOTE | 2020-11-19 10:41 | P.DS ---
Providers Date of admission: 11/16/20 12:36 Expected date of discharge: 11/19/20 Attending physician: Mike Self DO Consults: 11/16/20 12:38 Consult Physician Routine Consulting Provider: Mahi Espinoza Reason/Comments: medical clearance Do you want consulting provider notified?: Yes Primary care physician: Mahi Espinoza Hospital Course: Date of admission: 11/17/2020 Date of discharge: 11/19/2020 Admission diagnosis: Right intertrochanteric hip fracture status post fall Discharge diagnosis: Same Attending physician: Dr. Self Surgical procedures: Right hip hemiarthroplasty Brief history: Patient is a 85-year-old female with a history of right intertrochanteric hip fracture status post fall. We opted to proceed with right hip hemiarthroplasty. Consent obtained Hospital course: Details of patient's surgery can be found in operative report. Patient tolerated the procedure well and was subsequently transported to orthopedic floor. Patient's orthopeidc and medical care was provided daily. Patient had daily laboratory tests performed for evaluation of overall blood counts. Patient had daily physical therapy to include strengthening range of motion as well as education with walker ambulation. Patient was treated with Eliquis for their postoperative DVT prophylaxis during their inpatient stay. Patient was noted to have a relatively uneventful postoperative course. Patient reported satisfactory pain control with oral pain medications by postoperative day 2. Patient showed satisfactory progress with physical therapy. Patient moved steadily through the program and had no difficulty meeting the goals by postoperative day 2. Given patient's otherwise satisfactory course and having met physical therapy goals, plan is to discharge patient by [facility] on postoperative day 2. Discharge condition/disposition: Patient will be discharged [facility] in stable condition. Discharge medications: Instructions are given on resumption of patient's normal daily medications per primary care recommendation, in addition patient will be prescribed [place] 7.5 mg/325 mg every 4 hoursevery 6 hours; Eliquis 2.5 mg BID; Senna, Tylenol 650 mg; Do NOT exceed 4000 mg Tylenol per day Discharge instructions: 1. Wound care and infection precautions, keep incision dry and covered while showering, no lotions, creams, moisturizers. No soaking, tubs, pools, hottubs. Do not scrub over the incision. 2. Weight-bear as tolerated with walker / cane until follow-up. 3. Ice and elevate when necessary. Do not exceed 20 minutes per hour with ice pack. 4. Utilize compression sleeve until seen at first follow up appointment. 5. Visiting nursing care. 6. Home physical therapy. 7. Pain meds and anticoagulants per prescription. 8. Pain medication has potential to cause constipation. Increase oral fluid and fiber intake. Contact primary care provider if you have not had a bowel movement within 48 hours after discharge 9. No anti-inflammatory medication until discussed at first post operative visit, this including Motrin, Aleve, Mobic, Diclofenac. 10. Follow up in office at 2 weeks postop with Valentin Melchor PA-C / Michele Dexter PA-C 11. Follow up with your primary care doctor 7-10 days after discharge. 12. Contact [facility] with any questions, . Assessment: Right hip intertrochanteric fracture status post fall Procedures: Right hip hemiarthroplasty Patient Condition at Discharge: Good Plan - Discharge Summary Discharge Rx Participant: No New Discharge Prescriptions: New Acetaminophen Tab [Tylenol] 650 mg PO Q6HR PRN tab PRN Reason: Mild Pain Or Fever > 100.5 Apixaban [Eliquis] 2.5 mg PO BID #60 tablet Sennosides-Docusate Sodium [Senokot-S] 2 each PO HS tab HYDROcodone/APAP 7.5-325MG [[place] 7.5] 1 each PO Q4-6H PRN #28 tab PRN Reason: Pain Continue Donepezil [Aricept] 10 mg PO DAILY hydroCHLOROthiazide [Hydrodiuril] 12.5 mg PO DAILY cap Aspirin EC [Ecotrin Low Dose] 81 mg PO DAILY Memantine [Namenda] 5 mg PO DAILY Omeprazole 20 mg PO DIRECTED Atorvastatin [Lipitor] 40 mg PO DAILY lisinopriL 40 mg PO DAILY Discharge Medication List Donepezil [Aricept] 10 mg PO DAILY 08/14/18 [History] hydroCHLOROthiazide [Hydrodiuril] 12.5 mg PO DAILY cap 08/23/18 [Rx] Aspirin EC [Ecotrin Low Dose] 81 mg PO DAILY 11/16/20 [History] Atorvastatin [Lipitor] 40 mg PO DAILY 11/16/20 [History] Memantine [Namenda] 5 mg PO DAILY 11/16/20 [History] Omeprazole 20 mg PO DIRECTED 11/16/20 [History] lisinopriL 40 mg PO DAILY 11/16/20 [History] Acetaminophen Tab [Tylenol] 650 mg PO Q6HR PRN tab 11/19/20 [Rx] Apixaban [Eliquis] 2.5 mg PO BID #60 tablet 11/19/20 [Rx] HYDROcodone/APAP 7.5-325MG [[place] 7.5] 1 each PO Q4-6H PRN #28 tab 11/19/20 [Rx] Sennosides-Docusate Sodium [Senokot-S] 2 each PO HS tab 11/19/20 [Rx] Follow up Appointment(s)/Referral(s): Mahi Espinoza MD [Primary Care Provider] - 1 Week (At [facility]) Mike Self DO [Doctor of Osteopathic Medicine] - 2 Weeks (Please call office to make appointment) Patient Instructions/Handouts: Hip Fracture (ED), ORIF of Hip Fracture (DC) Activity/Diet/Wound Care/Special Instructions: Discharge instructions: 1. Wound care and infection precautions, keep incision dry and covered while showering, no lotions, creams, moisturizers. No soaking, tubs, pools, hottubs. Do not scrub over the incision. 2. Weight-bear as tolerated with walker / cane until follow-up. 3. Ice and elevate when necessary. Do not exceed 20 minutes per hour with ice pack. 4. Utilize compression sleeve until seen at first follow up appointment. 5. Visiting nursing care. 6. Home physical therapy. 7. Pain meds and anticoagulants per prescription. 8. Pain medication has potential to cause constipation. Increase oral fluid and fiber intake. Contact primary care provider if you have not had a bowel movement within 48 hours after discharge 9. No anti-inflammatory medication until discussed at first post operative visit, this including Motrin, Aleve, Mobic, Diclofenac. 10. Follow up in office at 2 weeks postop with Valentin Melchor PA-C / Michele Dexter PA-C 11. Follow up with your primary care doctor 7-10 days after discharge. 12. Contact [facility] with any questions, Discharge Disposition: TRANSFER TO SNF/ECF
--- NOTE | 2020-11-19 10:57 | P.PN ---
Subjective Progress Note Date: 11/19/20 Principal diagnosis: POD #2 Right hip femoral neck fracture s/p fall Patient was seen at bedside this morning resting. Patient says she is in a decent amount of pain whenever she moves her hip. She says she doesn't have much pain while not moving hip. Patient says she has not had bowel movement, but she has passed flatus. Patient says she has pumping her feet up and down throughout the day. She says she did not move much or really at all out of bed yesterday. Patient denies chest pain, fever, shortness of breath, nausea, vomiting, change in vision, loss of bowel/bladder control. Objective - Vital Signs Vital signs: Vital Signs Temp 98.7 F 11/19/20 07:00 Pulse 82 11/19/20 07:00 Resp 18 11/19/20 08:15 BP 109/60 11/19/20 07:00 Pulse Ox 95 11/19/20 07:00 Intake & Output 11/18/20 11/19/20 11/19/20 18:59 06:59 18:59 Output Total 400 800 Balance -400 -800 Output: Urine 400 800 Other: Voiding Method Indwelling Catheter Indwelling Catheter Indwelling Catheter - Exam Incision is clean, dry, and intact. The silver foam tape is in good condition. There is minimal soft tissue swelling and ecchymosis surrounding the medial and lateral aspects of the incision. Calf is soft, no tenderness with palpation. Plantar flexion, dorsiflexion, EHL, FHL are intact. Sensory exam to light touch throughout the extremity is intact, dorsal pedis pulses 2+. - Labs CBC & Chem 7: 11/18/20 05:17 11/17/20 05:22 Labs: Abnormal Lab Results - Last 24 Hours (Table) 11/18/20 Range/Units 05:17 Neutrophils # (Manual) 11.90 H (2.00-8.90) X 10*3/uL Lymphocytes # (Manual) 0.52 L (0.90-5.00) X 10*3/uL Eosinophils # (Manual) 0 L (0.04-0.35) X 10*3/uL Assessment and Plan Assessment: 1. Right femoral neck fracture status post fall 2. Multiple medical comorbidities Plan: 1. Right femoral neck fracture status post fall - surgery performed Monday11/17/2020 with IM nail. Patient orthopedically stable for discharge to rehab [facility] today. Patient to follow-up with us in the outpatient setting in 2 weeks. 2. Appreciate medical management 3. Pain management - stable at this time; going to rehab with [place] 7.5 mg/325 mg 4. GI ppx/DVT ppx- Going to rehab with Senna; Eliquis 2.5 mg BID 5. PT/OT - weightbearing as tolerated on right leg with walker and assistance 6. Encourage incentive spirometry 7. Discharge planning: Patient being discharged to [facility] inpatient rehab today, , 11/19/2020. Time with Patient: Less than 30
[2020-11-19] MEDS: HYDROcodone/APAP 10-325MG 1 EACH TAB PO PRN (12:37)
== END 2020-11-19 13:30 | DRG 522 ==
LOC: EC 09:48 → 4SSUR 12:36
PROVIDERS: ADMIT Orthopaedic Surgery; ATTEND Orthopaedic Surgery
PROC: 0SRR01A Replacement of Right Hip Joint, Femoral Surface with Metal Synthetic Substitute, Uncemented, Open Approach (ICD-10-PCS; principal; 2020-11-17 13:00)
DX: S72.011A Unspecified intracapsular fracture of right femur, initial encounter for closed fracture (principal); F01.50 Vascular dementia, unspecified severity, without behavioral disturbance, psychotic disturbance, mood disturbance, and anxiety; E78.5 Hyperlipidemia, unspecified; Z20.822 Contact with and (suspected) exposure to COVID-19; I10 Essential (primary) hypertension; M16.0 Bilateral primary osteoarthritis of hip; K21.00 Gastro-esophageal reflux disease with esophagitis, without bleeding; M85.80 Other specified disorders of bone density and structure, unspecified site; Z79.82 Long term (current) use of aspirin; Z79.899 Other long term (current) drug therapy; Z90.710 Acquired absence of both cervix and uterus; Z87.891 Personal history of nicotine dependence; Z90.49 Acquired absence of other specified parts of digestive tract; Z87.42 Personal history of other diseases of the female genital tract; Z87.81 Personal history of (healed) traumatic fracture; Z98.42 Cataract extraction status, left eye; Z98.41 Cataract extraction status, right eye; Z96.1 Presence of intraocular lens; Z98.890 Other specified postprocedural states; Y92.009 Unspecified place in unspecified non-institutional (private) residence as the place of occurrence of the external cause; W01.0XXA Fall on same level from slipping, tripping and stumbling without subsequent striking against object, initial encounter; Z82.49 Family history of ischemic heart disease and other diseases of the circulatory system; Z80.42 Family history of malignant neoplasm of prostate; Z84.1 Family history of disorders of kidney and ureter
CPT/HCPCS: 70450; 71045; 72125; 72192; 73501; 73502; 80048; 80053; 85025; 85027; 85610; 85730; 87635; 88305; 88311; 93005; 99285

== ENCOUNTER 2021-12-10 10:25 | Emergency (ER) | payer MEDICARE ==
[2021-12-10] MEDS ORDERED: SODIUM CHLORIDE 0.9% 500 ML 500 ML IV STA (10:47)
[2021-12-10 11:09] LABS: Basophils % (A) 0 %; Eosinophils # (A) 0.1 k/uL (0-0.7); Eosinophils % (A) 1 %; HCT 36.6 % (34.0-46.0); HGB 11.9 gm/dL (11.4-16.0); Lymphocytes # (A) 1.4 k/uL (1.0-4.8); Lymphocytes % (A) 16 %; MCH 30.1 pg (25.0-35.0); MCHC 32.4 g/dL (31.0-37.0); Mean Platelet Volume 8.7; Monocytes # (A) 0.8 k/uL (0-1.0); Monocytes % (A) 10 %; Neutrophils % (A) 70 %; Platelet Count 215 k/uL (150-450); RBC 3.94 m/uL (3.80-5.40); WBC 8.5 k/uL (3.8-10.6)
--- NOTE | 2021-12-10 11:21 | ED ---
General Adult HPI - General Chief complaint: Nausea/Vomiting/Diarrhea Stated complaint: Hemorrhoids Time Seen by Provider: 12/10/21 10:34 Source: patient, family Mode of arrival: ambulatory Limitations: no limitations - History of Present Illness Initial comments: Patient is an 86-year-old female presenting with chief complaint of diarrhea. Her daughter at bedside states that she has been dealing with diarrhea for about a year after her bowel resection, she states that within the last week symptoms have worsened. Patient is complaining of pain on her buttocks area, due to frequent loose stool and urine is causing irritation to the area. Patient's daughter at bedside states that she was preparing to bring a stool sample in to the patient's PCP, however the patient was in so much pain today at her assisted living that she brought her to the ER. Patient's daughter states that stools appear much darker as of recent. Denies abdominal pain, nausea, vomiting, chest pain, shortness of breath, fever, chills, hematochezia, dysuria, hematuria, new onset back pain. - Related Data Home Medications Medication Instructions Recorded Confirmed Donepezil [Aricept] 10 mg PO DAILY 08/14/18 11/16/20 Aspirin EC [Ecotrin Low Dose] 81 mg PO DAILY 11/16/20 11/16/20 Atorvastatin [Lipitor] 40 mg PO DAILY 11/16/20 11/16/20 Memantine [Namenda] 5 mg PO DAILY 11/16/20 11/16/20 Omeprazole 20 mg PO DIRECTED 11/16/20 11/16/20 lisinopriL 40 mg PO DAILY 11/16/20 11/16/20 Previous Rx's Medication Instructions Recorded hydroCHLOROthiazide [Hydrodiuril] 12.5 mg PO DAILY cap 08/23/18 Acetaminophen Tab [Tylenol] 650 mg PO Q6HR PRN tab 11/19/20 Apixaban [Eliquis] 2.5 mg PO BID #60 tablet 11/19/20 HYDROcodone/APAP 7.5-325MG [[place] 1 each PO Q4-6H PRN #28 tab 11/19/20 7.5] Sennosides-Docusate Sodium 2 each PO HS tab 11/19/20 [Senokot-S] Allergies Allergy/AdvReac Type Severity Reaction Status Date / Time No Known Allergies Allergy Verified 12/10/21 10:29 Review of Systems ROS Statement: Those systems with pertinent positive or pertinent negative responses have been documented in the HPI. ROS Other: All systems not noted in ROS Statement are negative. Past Medical History Past Medical History: GERD/Reflux, Hyperlipidemia, Hypertension Additional Past Medical History / Comment(s): dementia History of Any Multi-Drug Resistant Organisms: None Reported Past Surgical History: Bowel Resection, Hysterectomy, Orthopedic Surgery Additional Past Surgical History / Comment(s): left hip, bowel resection Past Anesthesia/Blood Transfusion Reactions: No Reported Reaction Past Psychological History: No Psychological Hx Reported Smoking Status: Former smoker Past Alcohol Use History: None Reported Past Drug Use History: None Reported - Past Family History Daughter(s) Family Medical History: No Reported History Mother Family Medical History: Coronary Artery Disease (CAD), Myocardial Infarction (SD) General Exam Limitations: no limitations General appearance: alert, in no apparent distress Head exam: Present: atraumatic, normocephalic, normal inspection Eye exam: Present: normal appearance, EOMI. Absent: scleral icterus, periorbital swelling Neck exam: Present: normal inspection Respiratory exam: Present: normal lung sounds bilaterally. Absent: respiratory distress, wheezes, rales, rhonchi, stridor Cardiovascular Exam: Present: regular rate, normal rhythm, normal heart sounds. Absent: systolic murmur, diastolic murmur, rubs, gallop, clicks GI/Abdominal exam: Present: soft, normal bowel sounds. Absent: distended, tenderness, guarding, rebound, rigid Rectal exam: Present: heme (-) stool, hemorrhoids Neurological exam: Present: alert, oriented X3, CN II-XII intact Psychiatric exam: Present: normal affect, normal mood Skin exam: Present: warm, dry, intact, normal color. Absent: rash Course Vital Signs 12/10/21 12/10/21 10:27 12:19 Temperature 98.3 F 97.6 F Pulse Rate 67 83 Respiratory 20 18 Rate Blood Pressure 105/58 156/65 O2 Sat by Pulse 99 99 Oximetry Medical Decision Making - Medical Decision Making Patient is an 86-year-old female presenting with chief complaint of diarrhea and irritation to the skin surrounding the buttocks. Her daughter at bedside states that diarrhea has been an issue for the last year after her bowel resection. Daughter states that today the pain from her skin irritation was so severe that they came to the ER. On examination there is no abdominal pain, chest pain, shortness of breath, nausea, vomiting. There is skin irritation noted on exam and hemorrhoids seen. CBC is WNL. Glucose is 117. Lipase is 452. Stool occult blood is negative. Stool culture has been sent. Patient was provided with barrier cream and instructed on supportive treatment. She appears stable for discharge with outpatient follow-up at this time. Follow-up with PCP in one to 2 days. Report back to ER with any new or worsening symptoms. Discussed return parameters answered all questions. Patient conveyed verbal understanding and agreed to the plan. I discussed this case with my attending Dr. Leon. - Lab Data Result diagrams: 12/10/21 10:57 12/10/21 10:57 Lab Results 12/10/21 12/10/21 12/10/21 Range/Units 10:57 10:57 11:14 WBC 8.5 (3.8-10.6) k/uL RBC 3.94 (3.80-5.40) m/uL Hgb 11.9 (11.4-16.0) gm/dL Hct 36.6 (34.0-46.0) % MCV 93.0 (80.0-100.0) fL MCH 30.1 (25.0-35.0) pg MCHC 32.4 (31.0-37.0) g/dL RDW 13.0 (11.5-15.5) % Plt Count 215 (150-450) k/uL MPV 8.7 Neutrophils % 70 % Lymphocytes % 16 % Monocytes % 10 % Eosinophils % 1 % Basophils % 0 % Neutrophils # 6.0 (1.3-7.7) k/uL Lymphocytes # 1.4 (1.0-4.8) k/uL Monocytes # 0.8 (0-1.0) k/uL Eosinophils # 0.1 (0-0.7) k/uL Basophils # 0.0 (0-0.2) k/uL Sodium 137 (137-145) mmol/L Potassium 4.2 (3.5-5.1) mmol/L Chloride 107 (98-107) mmol/L Carbon Dioxide 24 (22-30) mmol/L Anion Gap 6 mmol/L BUN 11 (7-17) mg/dL Creatinine 0.80 (0.52-1.04) mg/dL Est GFR (CKD-EPI)AfAm 76 (>60 ml/min/1.73 sqM) Est GFR (CKD-EPI)NonAf 66 (>60 ml/min/1.73 sqM) Glucose 117 H (74-99) mg/dL Calcium 9.1 (8.4-10.2) mg/dL Total Bilirubin 0.5 (0.2-1.3) mg/dL AST 22 (14-36) U/L ALT 14 (4-34) U/L Alkaline Phosphatase 80 (38-126) U/L Total Protein 6.8 (6.3-8.2) g/dL Albumin 3.9 (3.5-5.0) g/dL Amylase 97 (30-110) U/L Lipase 452 H (23-300) U/L Stool Occult Blood Negative (Negative) Disposition Clinical Impression: Hemorrhoids, Perirectal skin irritation Disposition: HOME SELF-CARE Condition: Good Instructions (If sedation given, give patient instructions): Hemorrhoids (ED), Acute Diarrhea (ED), Dermatitis (ED) Additional Instructions: Use barrier cream provided as needed. Follow-up with PCP on Monday. Report back to ER with any new or worsening symptoms. Is patient prescribed a controlled substance at d/c from ED?: No Referrals: Mahi Espinoza MD [Primary Care Provider] - 12/13/21 Time of Disposition: 12:12
[2021-12-10 11:23] LABS: Albumin 3.9 g/dL (3.5-5.0); Calcium 9.1 mg/dL (8.4-10.2); Potassium 4.2 mmol/L (3.5-5.1); Total Bilirubin 0.5 mg/dL (0.2-1.3); Total Protein 6.8 g/dL (6.3-8.2)
[2021-12-10] MEDS ORDERED: ACETAMINOPHEN TAB 325 MG TAB PO STA (11:34)
[2021-12-10 12:21] VITALS: PULSE 83; RESP 18; TEMP 97.6
[2021-12-10 12:25] VITALS: BP 156/65
== END 2021-12-10 12:30 | disposition home or self-care (01) ==
LOC: EC 10:25
DX: K64.9 Unspecified hemorrhoids (principal); I10 Essential (primary) hypertension; E78.5 Hyperlipidemia, unspecified; Z87.891 Personal history of nicotine dependence
CPT/HCPCS: 36415; 80053; 82150; 82272; 83690; 85025; 87045; 87046; 99284

== ENCOUNTER 2022-01-03 12:20 | Inpatient (IN) | payer MEDICARE ==
[2022-01-03] MEDS ORDERED: SODIUM CHLORIDE 0.9% 1,000 ML IV STA (12:51)
--- NOTE | 2022-01-03 12:59 | ED ---
General Adult HPI - General Chief complaint: Nausea/Vomiting/Diarrhea Stated complaint: diarrhea, hemorrhoid Time Seen by Provider: 01/03/22 12:21 Source: patient, RN notes reviewed Mode of arrival: ambulatory Limitations: altered mental status - History of Present Illness Initial comments: This an 86-year-old female presents emergency Department from Dr. Espinoza office with chief complaint of diarrhea, dehydration. Patient's been having worsening symptoms or last month in which she's had excessive diarrhea they have tried multiple medications with no real relief of her symptoms. Patient even discontinued Aricept for 1 week with no resolution of symptoms. Patient has no reported fever. Patient does have a history of bowel obstruction. Patient does feel very weak, feels dehydrated no chest pain or shortness breath. - Related Data Home Medications Medication Instructions Recorded Confirmed Donepezil [Aricept] 10 mg PO DAILY 08/14/18 11/16/20 Aspirin EC [Ecotrin Low Dose] 81 mg PO DAILY 11/16/20 11/16/20 Atorvastatin [Lipitor] 40 mg PO DAILY 11/16/20 11/16/20 Memantine [Namenda] 5 mg PO DAILY 11/16/20 11/16/20 Omeprazole 20 mg PO DIRECTED 11/16/20 11/16/20 lisinopriL 40 mg PO DAILY 11/16/20 11/16/20 Previous Rx's Medication Instructions Recorded hydroCHLOROthiazide [Hydrodiuril] 12.5 mg PO DAILY cap 08/23/18 Acetaminophen Tab [Tylenol] 650 mg PO Q6HR PRN tab 11/19/20 Apixaban [Eliquis] 2.5 mg PO BID #60 tablet 11/19/20 HYDROcodone/APAP 7.5-325MG [Elmer 1 each PO Q4-6H PRN #28 tab 11/19/20 7.5] Sennosides-Docusate Sodium 2 each PO HS tab 11/19/20 [Senokot-S] Allergies Allergy/AdvReac Type Severity Reaction Status Date / Time No Known Allergies Allergy Verified 12/10/21 10:29 Review of Systems ROS Statement: Those systems with pertinent positive or pertinent negative responses have been documented in the HPI. ROS Other: All systems not noted in ROS Statement are negative. Past Medical History Past Medical History: GERD/Reflux, Hyperlipidemia, Hypertension Additional Past Medical History / Comment(s): dementia History of Any Multi-Drug Resistant Organisms: None Reported Past Surgical History: Bowel Resection, Hysterectomy, Orthopedic Surgery Additional Past Surgical History / Comment(s): left hip, bowel resection Past Anesthesia/Blood Transfusion Reactions: No Reported Reaction Past Psychological History: No Psychological Hx Reported Smoking Status: Former smoker Past Alcohol Use History: None Reported Past Drug Use History: None Reported - Past Family History Daughter(s) Family Medical History: No Reported History Mother Family Medical History: Coronary Artery Disease (CAD), Myocardial Infarction ([place]) General Exam Limitations: altered mental status General appearance: alert, in no apparent distress Head exam: Present: atraumatic, normocephalic, normal inspection Eye exam: Present: normal appearance, PERRL, EOMI. Absent: scleral icterus, conjunctival injection, periorbital swelling ENT exam: Present: mucous membranes dry Neck exam: Present: normal inspection. Absent: tenderness, meningismus, lymphadenopathy Respiratory exam: Present: normal lung sounds bilaterally. Absent: respiratory distress, wheezes, rales, rhonchi, stridor Cardiovascular Exam: Present: regular rate, normal rhythm, normal heart sounds. Absent: systolic murmur, diastolic murmur, rubs, gallop, clicks GI/Abdominal exam: Present: soft, normal bowel sounds. Absent: distended, tenderness, guarding, rebound, rigid Course Vital Signs 01/03/22 12:23 Temperature 98.1 F Pulse Rate 71 Respiratory 16 Rate Blood Pressure 145/69 O2 Sat by Pulse 99 Oximetry Medical Decision Making - Medical Decision Making Dr. Espinoza was updated regarding the results of the patient. Patient be admitted for surgical evaluation, requested Dr. Otoole Patient be continued on hydration. - Lab Data Result diagrams: 01/03/22 13:02 01/03/22 13:02 Lab Results 01/03/22 01/03/22 01/03/22 Range/Units 13:02 13:02 13:02 WBC 10.9 H (3.8-10.6) k/uL RBC 3.82 (3.80-5.40) m/uL Hgb 11.5 (11.4-16.0) gm/dL Hct 36.0 (34.0-46.0) % MCV 94.2 (80.0-100.0) fL MCH 30.2 (25.0-35.0) pg MCHC 32.0 (31.0-37.0) g/dL RDW 12.9 (11.5-15.5) % Plt Count 275 (150-450) k/uL MPV 8.4 Neutrophils % 73 % Lymphocytes % 13 % Monocytes % 11 % Eosinophils % 1 % Basophils % 0 % Neutrophils # 8.0 H (1.3-7.7) k/uL Lymphocytes # 1.4 (1.0-4.8) k/uL Monocytes # 1.2 H (0-1.0) k/uL Eosinophils # 0.1 (0-0.7) k/uL Basophils # 0.0 (0-0.2) k/uL Sodium 135 L (137-145) mmol/L Potassium 4.5 (3.5-5.1) mmol/L Chloride 102 (98-107) mmol/L Carbon Dioxide 26 (22-30) mmol/L Anion Gap 7 mmol/L BUN 13 (7-17) mg/dL Creatinine 0.70 (0.52-1.04) mg/dL Est GFR (CKD-EPI)AfAm 89 (>60 ml/min/1.73 sqM) Est GFR (CKD-EPI)NonAf 78 (>60 ml/min/1.73 sqM) Glucose 101 H (74-99) mg/dL Plasma Lactic Acid Franco 1.2 (0.7-2.0) mmol/L Calcium 9.1 (8.4-10.2) mg/dL Total Bilirubin 0.5 (0.2-1.3) mg/dL AST 22 (14-36) U/L ALT 12 (4-34) U/L Alkaline Phosphatase 73 (38-126) U/L Total Protein 6.9 (6.3-8.2) g/dL Albumin 3.9 (3.5-5.0) g/dL Amylase 69 (30-110) U/L Lipase 231 (23-300) U/L Disposition Clinical Impression: Colon wall thickening, Abdominal pain, Fecaloma, Weight loss, Dehydration Disposition: ADMITTED IP TO THIS [facility] Condition: Fair Referrals: Mahi Espinoza MD [Primary Care Provider] - 1-2 days Time of Disposition: 14:50
[2022-01-03 13:11] LABS: Basophils % (A) 0 %; Eosinophils # (A) 0.1 k/uL (0-0.7); Eosinophils % (A) 1 %; HGB 11.5 gm/dL (11.4-16.0); Lymphocytes # (A) 1.4 k/uL (1.0-4.8); Lymphocytes % (A) 13 %; MCH 30.2 pg (25.0-35.0); MCV 94.2 fL (80.0-100.0); Mean Platelet Volume 8.4; Monocytes # (A) 1.2 k/uL (0-1.0); Monocytes % (A) 11 %; Neutrophils % (A) 73 %; Platelet Count 275 k/uL (150-450); RBC 3.82 m/uL (3.80-5.40); RDW 12.9 % (11.5-15.5); WBC 10.9 k/uL (3.8-10.6)
[2022-01-03 13:22] LABS: Albumin 3.9 g/dL (3.5-5.0); Calcium 9.1 mg/dL (8.4-10.2); Total Bilirubin 0.5 mg/dL (0.2-1.3); Total Protein 6.9 g/dL (6.3-8.2)
[2022-01-03 13:29] LABS: Potassium 4.5 mmol/L (3.5-5.1)
--- NOTE | 2022-01-03 14:37 | CT ---
EXAMINATION TYPE: CT abdomen pelvis w con CT DLP: 638.4 mGycm, Automated exposure control for dose reduction was used. DATE OF EXAM: 01/03/2022 2:10 PM COMPARISON: CT pelvis 11/16/2020. CLINICAL INDICATION:Female, 86 years old with history of abdominal pain; Lower abdominal/pelvic pain. TECHNIQUE: Standard CT of the abdomen and pelvis following the administration of 100 cc of Isovue 3 00 IV contrast material. Coronal and sagittal reformats were performed. FINDINGS: LOWER CHEST: Bibasilar subsegmental atelectasis. Mitral annulus calcifications. ABDOMEN LIVER: Unremarkable GALLBLADDER AND BILE DUCTS: Unremarkable. PANCREAS: Unremarkable. SPLEEN: Unremarkable. ADRENAL GLANDS: Unremarkable. KIDNEYS AND URETERS: No evidence of hydronephrosis or renal calculus. Right renal cysts with largest in the from the inferior pole measuring up to 4.6 cm. The kidneys enhance symmetrically. PELVIS BLADDER: Unremarkable REPRODUCTIVE: The uterus is surgically absent. ABDOMEN & PELVIS STOMACH AND BOWEL: Stomach and duodenum are unremarkable. The appendix is within normal limits. Recta l fecaloma measuring up to 7.7 cm in diameter. Circumferential wall thickening of the anus. Scattered colonic diverticulosis without evidence for acute diverticulitis. No evidence of bowel obstruction. PERITONEUM: No evidence of pneumoperitoneum or free fluid. Presacral edema. VASCULATURE: Moderate atherosclerotic calcifications are present throughout the abdominal aorta and i ts branches. No evidence of aortic aneurysm. MUSCULOSKELETAL: No acute osseous abnormalities. Post surgical changes from right total hip arthropla sty. This creates streak artifact limiting evaluation. Additional postsurgical changes of the left pr oximal femur with 3 screws identified. Scoliotic curvature of the visualized spine. Moderate multilev el degenerative changes of the visualized spine. No suspicious osseous lesion. LYMPH NODES: Enlarged perirectal lymph nodes with largest measuring up to 1.5 cm(series 201, image 70 ). No retroperitoneal lymphadenopathy. 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 Findings may related to an infectious/inflammatory process however malignancy would need to be consi dered in the setting of lymphadenopathy. Direct visualization is recommended.
[2022-01-03] MEDS ORDERED: NALOXONE 0.4 MG/ML 1 ML VIAL IV PRN (14:50)
[2022-01-03] MEDS ORDERED: ACETAMINOPHEN TAB 325 MG TAB PO PRN (14:50)
[2022-01-03 15:19] LABS: Appearance,Urine Clear (Clear); Bilirubin,Urine Negative (Negative); Blood,Urine Negative (Negative); Color,Urine Light Yellow; Glucose,Urine (UA) Negative (Negative); Hyaline Casts,Urine 1 /lpf (0-2); Ketones,Urine Negative (Negative); Leukocyte Esterase,Urine Moderate (Negative); Nitrite,Urine Negative (Negative); PH, Urine 6.5 (5.0-8.0); Protein,Urine Negative (Negative); RBC,Urine 1 /hpf (0-5); Specific Gravity,Urine 1.024 (1.001-1.035); Squamous Epithelial Cell,Urine <1 /hpf (0-4); Urobilinogen,Urine <2.0 mg/dL (<2.0); WBC,Urine 4 /hpf (0-5)
[2022-01-03] MEDS: SODIUM CHLORIDE 0.9% 1,000 ML IV SCH (15:30)
[2022-01-03] MEDS: MORPHINE SULFATE 2 MG/ML SYRINGE IVP PRN (17:24)
[2022-01-03] MEDS ORDERED: NA PHOS,M-B/NA PHOS,DI-BA 133 ML ENEMA RECTAL STA (18:57)
[2022-01-03] MEDS: PIPERACILLIN-TAZOBACTAM 3.375 GM in SODIUM CHLORIDE 0.9% 100 ML IVPB SCH (20:14)
[2022-01-03] MEDS: ATORVASTATIN 40 MG TAB PO SCH (21:13)
[2022-01-03] MEDS: MEMANTINE 5 MG TAB PO SCH (21:13)
[2022-01-03] MEDS: DONEPEZIL 10 MG TAB PO SCH (21:14)
[2022-01-03] MEDS: SENNOSIDES-DOCUSATE SODIUM 1 EACH TAB PO SCH (21:14)
[2022-01-04] MEDS: MORPHINE SULFATE 2 MG/ML SYRINGE IVP PRN ×2 (00:03→05:28)
[2022-01-04] MEDS: HEPARIN SODIUM,PORCINE/PF 5,000 UNIT/0.5 ML SYRINGE SQ SCH ×3 (00:03→18:10)
[2022-01-04] MEDS: PIPERACILLIN-TAZOBACTAM 3.375 GM in SODIUM CHLORIDE 0.9% 100 ML IVPB SCH ×3 (02:26→19:39)
[2022-01-04] MEDS: SODIUM CHLORIDE 0.9% 1,000 ML IV SCH ×2 (05:28→18:58)
[2022-01-04] MEDS ORDERED: FAMOTIDINE 20 MG TAB PO SCH (09:00)
[2022-01-04 09:13] LABS: HCT 32.1 % (37.2-46.3); HGB 9.9 g/dL (12.0-15.0); MCH 29.4 pg (27.0-32.0); MCHC 30.8 g/dL (32.0-37.0); MCV 95.3 fL (80.0-97.0); Mean Platelet Volume 11.8 fL (9.5-12.2); NRBC Per 100 WBC 0 /100 WBCS (0.0-0.0); Platelet Count 254 X 10*3/uL (140-440); RBC 3.37 X 10*6/uL (4.10-5.20); RDW 13.6 % (11.5-14.5); WBC 11.51 X 10*3/uL (4.50-10.00)
[2022-01-04 10:05] LABS: African American GFR (CKD) 89.7 (60.0-200.0); Albumin 3.5 g/dL (3.8-4.9); Albumin/Globulin Ratio 1.59 (1.60-3.17); Anion Gap 9.7 mmol/L (10.00-18.00); BUN/Creat Ratio 12.43 Ratio (12.00-20.00); Blood Urea Nitrogen 8.7 mg/dL (9.0-27.0); Calcium 8.5 mg/dL (8.7-10.3); Carbon Dioxide 22.3 mmol/L (20.0-27.5); Globulin 2.2 g/dL (1.6-3.3); Non-African American GFR(CKD) 77.4 (60.0-200.0); Total Bilirubin 0.5 mg/dL (0.30-1.20); Total Protein 5.7 g/dL (6.2-8.2)
[2022-01-04] MEDS: SENNOSIDES-DOCUSATE SODIUM 1 EACH TAB PO SCH ×2 (10:20→19:39)
[2022-01-04] MEDS: polyethylene glycoL 3350 17 GM POWD.PACK PO SCH (10:20)
[2022-01-04] MEDS: lisinopriL 10 MG TAB PO SCH (10:21)
[2022-01-04] MEDS: FAMOTIDINE 20 MG TAB PO SCH (10:21)
[2022-01-04] MEDS: MEMANTINE 5 MG TAB PO SCH ×2 (10:21→19:40)
--- NOTE | 2022-01-04 10:25 | P.HPIM ---
History of Present Illness H&P Date: 01/04/22 HISTORY OF PRESENT ILLNESS: This is an 86-year-old female patient of mine with PMH of hypertension, hyperlipidemia, gastroesophageal reflux disease and esophagitis, vascular d ementia. Patient's last hospitalization was in October 2020 following a fall and right hip fracture and underwent right hip hemiarthroplasty at that time, discharged to subacute rehab at [facility]. Patient has history of exploratory laparotomy and extensive lysis of adhesions secondary to small bowel obstruction 07/[address] Otoole. Patient presented yesterday to the office with complaints of diarrhea that had been going on for the past month and worsening although medication changes have been made to try to address. Patient was found to be afebrile, heart rate 71, blood pressure 145/69, pulse ox 99% on room air. WBC 10.9, hemoglobin 11.5, platelet count 275. Sodium 135, potassium 4.5, chloride 102, CO2 26, BUN 13 and creatinine 0.7. Blood sugar 101. Lactic acid 1.2. Liver function tests were normal. Lipase 231. Urinalysis was clear, the cholesterol is moderate. C. difficile toxin negative. CAT scan of the abdomen and pelvis with contrast revealed rectal fecaloma measuring 7.7 cm in diameter with circumferential wall thickening of the anus and large perirectal lymph nodes. Findings may relate to an infectious or inflammatory process however malignancy would need to be considered in the setting of lymphadenopathy. Direct visualization is recommended. Patient has been admitted to [facility] floor, seen by Dr. Otoole and scheduled for sigmoidoscopy and biopsy today. Patient states that she is feeling a little bit better and abdominal discomfort is improved. Patient has been seen by physical therapy with recommendations for either home with home care with 24-hour supervision or subacute rehab. REVIEW OF SYSTEMS: Constitutional: No documented fever, no chills, no night sweats. No weight change. No weakness, fatigue or lethargy. No daytime sleepiness. EENT: No headache. No blurred vision or double vision, no loss of vision. No l oss of Hearing, no ringing in the ears, no dizziness. No nasal drainage or congestion. No epistaxis. No sore throat. Lungs: No shortness of breath, no cough, no sputum production. No wheezing. Re ports dyspnea with activity. Cardiovascular: No chest pain, no lower extremity edema. No palpitations. No paroxysmal nocturnal dyspnea. No orthopnea. No lightheadedness or dizziness. No syncopal episodes. Abdominal: Denies abdominal pain. No nausea, vomiting. Reported diarrhea. No constipation. No bloody or tarry stools. Reported loss of appetite. Genitourinary: No dysuria, increased frequency, urgency. No urinary retention. Musculoskeletal: No myalgias. No muscle weakness, no gait dysfunction, no frequent falls. No back pain. No neck pain. Integumentary: No wounds, no lesions. No rash or pruritus. No unusual bruising. No change in hair or nails. Neurologic: No aphasia. No facial droop. Chronic change in mentation due to underlying dementia. No head injury. No headache. No paralysis. No paresthesia. Psychiatric: No depression. No anxiety. No mood swings. Endocrine: No abnormal blood sugars. No weight change. PAST MEDICAL HISTORY: Hypertension Hyperlipidemia Gastroesophageal reflux disease and esophagitis Vascular dementia PAST SURGICAL HISTORY: Small bowel obstruction with KAIT in 2019 Cholecystectomy 2000 Cataract removal and intraocular lens implants Total hysterectomy due to fallopian tube Colonoscopy SOCIAL HISTORY: Patient started smoking as a teenager and quit more than 30 years ago. no alcohol use, no marijuana use. FAMILY HISTORY: Father at age 75 from prostate cancer. Mother at age 65 from heart failure and renal failure. Patient has one daughter with no major medical problems. PHYSICAL EXAMINATION: General: this is an 86-year-old female. She is resting in bed and appears to be comfortable and in no acute distress. HEENT: Head is atraumatic, normocephalic, pupils were equal round reactive to light and recommendation, extraocular muscle movement were intact, sclera nonicteric, conjunctivae were pale, mucous membranes of the mouth are somewhat dry. Neck: Supple, no JVP, normal carotid upstroke bilaterally, no lymphadenopathy. Chest: Decreased breath sounds at the bases, few rhonchi, no extremity wheezes, no chest wall tenderness, no intercostal retractions. Heart: First heart sound is depressed, second heart sounds normal. there is a 2/6 systolic ejection murmur at the left sternal border. No S3, S4. No JVP. Abdomen: Soft, nontender, nondistended, positive bowel sounds. Extremities: There is no edema no calf tenderness DP +2 bilaterally. Neurologic examination: Patient is awake alert and oriented to person. She is pleasantly confused, cranial nerves II-12 appear grossly intact, muscle power were 5 out of 5 in upper extremities and 5 out of 5 in bilateral lower extremities. ASSESSMENT AND PLAN: 1. Abdominal discomfort, diarrhea with CAT scan finding of rectal fecaloma, anal wall thickening and enlarged lymph nodes. Patient is scheduled for sigmoidoscopy and biopsy today with Dr. Otoole. Morphine is available as needed for pain. Patient started on Zosyn 3.375 g IV piggyback every 8 hours, IV fluids or 0.9 normal saline at 75 mL per hour, MiraLAX 17 g daily 2. History of bowel obstruction in the past. 3. Hypertension. Continue lisinopril 10 mg daily. 4. Hyperlipidemia. Continue atorvastatin 40 mg daily. 5. Gastroesophageal reflux disease. Continue Protonix 40 mg daily. 6. Vascular dementia. Continue Aricept 10 mg daily, Namenda 5 mg daily. 7. Gastroesophageal reflux disease. Continue famotidine 40 mg daily. 8. Anemia of chronic disease. Patient has been on ferrous sulfate 325 mg daily. 9. DVT prophylaxis. Heparin subcu. Patient will be admitted to the hospital for minimum of 2 night stay. DISCHARGE PLAN: Subacute rehab most likely. Impression and plan of care have been directed as dictated by the signing physician. Kayley Jasso nurse practitioner acting as scribe for signing physician. Past Medical History Past Medical History: GERD/Reflux, Hyperlipidemia, Hypertension Additional Past Medical History / Comment(s): dementia History of Any Multi-Drug Resistant Organisms: None Reported Past Surgical History: Bowel Resection, Hysterectomy, Orthopedic Surgery Additional Past Surgical History / Comment(s): left hip, bowel resection Past Anesthesia/Blood Transfusion Reactions: No Reported Reaction Past Psychological History: No Psychological Hx Reported Smoking Status: Former smoker Past Alcohol Use History: None Reported Past Drug Use History: None Reported - Past Family History Daughter(s) Family Medical History: No Reported History Mother Family Medical History: Coronary Artery Disease (CAD), Myocardial Infarction ([place]) Medications and Allergies Home Medications Medication Instructions Recorded Confirmed Type Donepezil [Aricept] 10 mg PO HS 08/14/18 01/03/22 History Atorvastatin [Lipitor] 40 mg PO HS 11/16/20 01/03/22 History Memantine [Namenda] 5 mg PO BID 11/16/20 01/03/22 History Cholestyramine (with Sugar) 4 gm PO BID PRN 01/03/22 01/03/22 History [Cholestyramine Packet] Famotidine 40 mg PO DAILY 01/03/22 01/03/22 History Ferrous Sulfate [Feosol] 325 mg PO DAILY 01/03/22 01/03/22 History lisinopriL [Prinivil] 10 mg PO DAILY 01/03/22 01/03/22 History Allergies Allergy/AdvReac Type Severity Reaction Status Date / Time No Known Allergies Allergy Verified 01/03/22 15:33 Physical Exam Vitals: Vital Signs Temp Pulse Pulse Resp BP BP Pulse Ox 01/04/22 01:15 99.2 F 69 18 146/70 98 01/03/22 21:30 98.5 F 72 20 177/81 98 01/03/22 20:08 81 20 147/81 100 01/03/22 18:42 75 16 176/114 96 01/03/22 17:05 97.8 F 73 198/77 98 01/03/22 15:00 72 16 105/72 98 01/03/22 12:23 98.1 F 71 16 145/69 99 Intake and Output 01/03/22 01/04/22 01/04/22 22:59 06:59 14:59 Intake Total 150 500 Balance 150 500 Intake: IV 150 500 Sodium Chloride 0.9% 1, 150 500 000 ml @ 75 mls/hr IV . [id number] [facility] Rx#:[id number] Other: # Voids 2 # Bowel Movements 2 2 Weight 47.627 kg Results CBC & Chem 7: 01/04/22 05:43 01/04/22 05:43 Labs: Abnormal Lab Results - Last 24 Hours (Table) 01/03/22 01/03/22 01/03/22 Range/Units 13:02 13:02 13:02 WBC 10.9 H (3.8-10.6) k/uL Neutrophils # 8.0 H (1.3-7.7) k/uL Monocytes # 1.2 H (0-1.0) k/uL Sodium 135 L (137-145) mmol/L Glucose 101 H (74-99) mg/dL Ur Leukocyte Esterase Moderate H (Negative) Microbiology - Last 24 Hours (Table) 01/03/22 13:02 Stool Culture - Preliminary Stool Thrombosis Risk Factor Assmnt - Choose All That Apply Any of the Below Risk Factors Present?: No Each Risk Factor Represents 3 Points: Age 75 years or older Thrombosis Risk Factor Assessment Total Risk Factor Score: 3 Thrombosis Risk Factor Assessment Level: Moderate Risk
[2022-01-04 11:00] LABS: Basophils # (M) 0 X 10*3/uL (0.00-0.10); Eosinophils # (M) 0.12 X 10*3/uL (0.04-0.35); Lymphocytes # (M) 1.15 X 10*3/uL (0.90-5.00); Monocytes # (M) 0.81 X 10*3/uL (0.20-1.00); Neutrophils # (M) 9.44 X 10*3/uL (2.00-8.90); Neutrophils % (M) 82 %; RBC Morphology NORMAL
--- NOTE | 2022-01-04 11:47 | P.GSCN ---
History of Present Illness Consult date: 01/04/22 History of present illness: CHIEF COMPLAINT: Diarrhea HISTORY OF PRESENT ILLNESS: This is a 86-year-old female who presented to the emergency room from her PCPs office due to diarrhea and dehydration. Patient does have a known history of dementia. Daughter is at bedside. She reports that patient has been dealing with diarrhea for about 4 weeks. Patient had denied any abdominal pain. Denies any nausea or vomiting. The stool has been greenish black in color. Has reported decreased appetite. She has been having skin irritation due to the diarrhea. Does irritate her hemorrhoids as well. She had 20 pound weight loss since November. Computed tomography scan abdomen and pelvis completed shows rectal fecaloma with circumferential wall thickening of the anus and enlarged perirectal lymph nodes. Findings may be related to an infectious/inflammatory process however malignancy would need to be considered in the setting of lymphadenopathy. Patient is scheduled for flex sigmoidoscopy today. Patient's prior surgical history includes bowel obstruction with lysis of adhesions and hysterectomy. PAST MEDICAL HISTORY: Dementia, hypertension, hyperlipidemia, GERD PAST SURGICAL HISTORY: See list. MEDICATIONS: See list. ALLERGIES: See list. SOCIAL HISTORY: No illicit drug use. REVIEW OF SYSTEMS: CONSTITUTIONAL: Denies fever or chills. HEENT: Denies blurred vision, vision changes, or eye pain. Denies hemoptysis CARDIOVASCULAR: Denies chest pain or pressure. RESPIRATORY: No shortness of breath. GASTROINTESTINAL: See HPI for pertinent findings HEMATOLOGIC: Denies bleeding disorders. GENITOURINARY: Denies any blood in urine or increased urinary frequency. SKIN: Denies pruitis. Denies rash. PHYSICAL EXAM: VITAL SIGNS: Reviewed GENERAL: Well-developed in no acute distress. HEENT: No sclera icterus. Extraocular movements grossly intact. Moist buccal mucosa. Head is atraumatic, normocephalic. No nasal drainage. ABDOMEN: Soft. Nondistended. Nontender. External Hemorrhoids present. No bleeding noted. NEUROLOGIC: Alert and oriented 1. LABORATORY DATA: WBC is 11.5 one Hgb 11.5 down to 9.9 platelets 254 Sodium 137 potassium 4.0 creatinine 0.7 Stool for C. 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 Diarrhea PLAN: -Patient scheduled for flexible sigmoidoscopy with biopsy today with Dr. Otoole -Keep patient nothing by mouth -Continue supportive care Thank you for this consultation Physician Farmworker Cranberry note has been reviewed by physician. Signing provider agrees with the documented findings, assessment, and plan of care. I have personally seen and examined the patient, reviewed the PLUMBING MECHANIC /PAs history, exam and MDM and agree with the assessment and plan as written. Based on total visit time, I have performed more than 50% of the visit. As above: Patient with CAT scan findings suggestive of either fecal impaction or possible rectal tumor. We'll proceed with flexible sigmoidoscopy with biopsy or possible impaction evacuation. Past Medical History Past Medical History: GERD/Reflux, Hyperlipidemia, Hypertension Additional Past Medical History / Comment(s): dementia History of Any Multi-Drug Resistant Organisms: None Reported Past Surgical History: Bowel Resection, Hysterectomy, Orthopedic Surgery Additional Past Surgical History / Comment(s): left hip, bowel resection Past Anesthesia/Blood Transfusion Reactions: No Reported Reaction Past Psychological History: No Psychological Hx Reported Smoking Status: Former smoker Past Alcohol Use History: None Reported Past Drug Use History: None Reported - Past Family History Daughter(s) Family Medical History: No Reported History Mother Family Medical History: Coronary Artery Disease (CAD), Myocardial Infarction (MD) Medications and Allergies Home Medications Medication Instructions Recorded Confirmed Type Donepezil [Aricept] 10 mg PO HS 08/14/18 01/03/22 History Atorvastatin [Lipitor] 40 mg PO HS 11/16/20 01/03/22 History Memantine [Namenda] 5 mg PO BID 11/16/20 01/03/22 History Cholestyramine (with Sugar) 4 gm PO BID PRN 01/03/22 01/03/22 History [Cholestyramine Packet] Famotidine 40 mg PO DAILY 01/03/22 01/03/22 History Ferrous Sulfate [Feosol] 325 mg PO DAILY 01/03/22 01/03/22 History lisinopriL [Prinivil] 10 mg PO DAILY 01/03/22 01/03/22 History Allergies Allergy/AdvReac Type Severity Reaction Status Date / Time No Known Allergies Allergy Verified 01/03/22 15:33 Surgical - Exam Vital Signs Temp Pulse Resp BP Pulse Ox 98.1 F 71 16 145/69 99 01/03/22 12:23 01/03/22 12:23 01/03/22 12:23 01/03/22 12:23 01/03/22 12:23 Results - Labs 01/04/22 05:43 01/04/22 05:43 Abnormal Lab Results - Last 24 Hours (Table) 01/03/22 01/03/22 01/03/22 Range/Units 13:02 13:02 13:02 WBC 10.9 H (3.8-10.6) k/uL RBC (4.10-5.20) X 10*6/uL Hgb (12.0-15.0) g/dL Hct (37.2-46.3) % MCHC (32.0-37.0) g/dL Neutrophils # 8.0 H (1.3-7.7) k/uL Neutrophils # (Manual) (2.00-8.90) X 10*3/uL Monocytes # 1.2 H (0-1.0) k/uL Sodium 135 L (137-145) mmol/L Anion Gap (10.00-18.00) mmol/L BUN (9.0-27.0) mg/dL Glucose 101 H (74-99) mg/dL Calcium (8.7-10.3) mg/dL Total Protein (6.2-8.2) g/dL Albumin (3.8-4.9) g/dL Albumin/Globulin Ratio (1.60-3.17) g/dL Ur Leukocyte Esterase Moderate H (Negative) 01/04/22 01/04/22 Range/Units 05:43 05:43 WBC 11.51 H (3.8-10.6) k/uL RBC 3.37 L (4.10-5.20) X 10*6/uL Hgb 9.9 L (12.0-15.0) g/dL Hct 32.1 L (37.2-46.3) % MCHC 30.8 L (32.0-37.0) g/dL Neutrophils # (1.3-7.7) k/uL Neutrophils # (Manual) 9.44 H (2.00-8.90) X 10*3/uL Monocytes # (0-1.0) k/uL Sodium (137-145) mmol/L Anion Gap 9.70 L (10.00-18.00) mmol/L BUN 8.7 L (9.0-27.0) mg/dL Glucose (74-99) mg/dL Calcium 8.5 L (8.7-10.3) mg/dL Total Protein 5.7 L (6.2-8.2) g/dL Albumin 3.5 L (3.8-4.9) g/dL Albumin/Globulin Ratio 1.59 L (1.60-3.17) g/dL Ur Leukocyte Esterase (Negative) Microbiology - Last 24 Hours (Table) 01/03/22 13:02 Stool Culture - Preliminary Stool Diabetes panel 01/03/22 01/04/22 Range/Units 13:02 05:43 Sodium 135 L 137 (137-145) mmol/L Potassium 4.5 4.0 (3.5-5.1) mmol/L Chloride 102 105 (98-107) mmol/L Carbon Dioxide 26 22.3 (22-30) mmol/L BUN 13 8.7 L (7-17) mg/dL Creatinine 0.70 0.7 (0.52-1.04) mg/dL Glucose 101 H 101 (74-99) mg/dL Calcium 9.1 8.5 L (8.4-10.2) mg/dL AST 22 13 (14-36) U/L ALT 12 10 (4-34) U/L Alkaline Phosphatase 73 72 (38-126) U/L Total Protein 6.9 5.7 L (6.3-8.2) g/dL Albumin 3.9 3.5 L (3.5-5.0) g/dL Calcium panel 01/03/22 01/04/22 Range/Units 13:02 05:43 Calcium 9.1 8.5 L (8.4-10.2) mg/dL Albumin 3.9 3.5 L (3.5-5.0) g/dL Pituitary panel 01/03/22 01/04/22 Range/Units 13:02 05:43 Sodium 135 L 137 (137-145) mmol/L Potassium 4.5 4.0 (3.5-5.1) mmol/L Chloride 102 105 (98-107) mmol/L Carbon Dioxide 26 22.3 (22-30) mmol/L BUN 13 8.7 L (7-17) mg/dL Creatinine 0.70 0.7 (0.52-1.04) mg/dL Glucose 101 H 101 (74-99) mg/dL Calcium 9.1 8.5 L (8.4-10.2) mg/dL Adrenal panel 01/03/22 01/04/22 Range/Units 13:02 05:43 Sodium 135 L 137 (137-145) mmol/L Potassium 4.5 4.0 (3.5-5.1) mmol/L Chloride 102 105 (98-107) mmol/L Carbon Dioxide 26 22.3 (22-30) mmol/L BUN 13 8.7 L (7-17) mg/dL Creatinine 0.70 0.7 (0.52-1.04) mg/dL Glucose 101 H 101 (74-99) mg/dL Calcium 9.1 8.5 L (8.4-10.2) mg/dL Total Bilirubin 0.5 0.50 (0.2-1.3) mg/dL AST 22 13 (14-36) U/L ALT 12 10 (4-34) U/L Alkaline Phosphatase 73 72 (38-126) U/L Total Protein 6.9 5.7 L (6.3-8.2) g/dL Albumin 3.9 3.5 L (3.5-5.0) g/dL
[2022-01-04] MEDS ORDERED: IV FLUID CONTINUATION 1,000 ML IV ONE (12:19)
--- NOTE | 2022-01-04 13:05 | P.PCN ---
Date of Procedure: 01/04/22 Procedure(s) Performed: PREOPERATIVE DIAGNOSIS: Fecal impaction, possible rectal mass POSTOPERATIVE DIAGNOSIS: Fecal impaction PROCEDURE: Flexible sigmoidoscopy with disimpaction ANESTHESIA: MAC SURGEON: Ori Otoole M.D. SPECIMENS: None ENDOSCOPIC PROCEDURE: The patient was placed on the endoscopy table in the left decubitus position. Digital rectal examination revealed a large stool ball in the rectum that was evacuated manually. There was no blood present. Color of stool was dark polyp. I then used the flexible sigmoidoscope to advance through the anus to the mid sigmoid colon. As expected much of the mucosa was covered with stool however no gross neoplastic lesions were identified. There was no inflammation seen. The degree of residual stool was actually less than expected. The patient did have circumferential hemorrhoids. RECOMMENDATIONS: Findings were discussed with the patient's family. No evidence of rectal mass or tumor at this time. Suspect patient may have chronic fecal impaction causing rectal wall thickening. This could lead to some reactive adenopathy. Given the patient's comorbidities no further workup planned at this time. Resume diet. Continue stool softeners.
[2022-01-04 15:14] VITALS: BMI 18.0
[2022-01-04] MEDS: ATORVASTATIN 40 MG TAB PO SCH (19:39)
[2022-01-04] MEDS: DONEPEZIL 10 MG TAB PO SCH (19:40)
[2022-01-05] MEDS: HEPARIN SODIUM,PORCINE/PF 5,000 UNIT/0.5 ML SYRINGE SQ SCH ×4 (00:06→23:54)
[2022-01-05] MEDS: PIPERACILLIN-TAZOBACTAM 3.375 GM in SODIUM CHLORIDE 0.9% 100 ML IVPB SCH ×3 (01:55→19:41)
--- NOTE | 2022-01-05 08:30 | P.DS ---
Providers Date of admission: 01/04/22 08:19 Expected date of discharge: 01/05/22 Attending physician: Mahi Espinoza Consults: 01/03/22 14:50 Consult Physician Urgent Consulting Provider: Ori Otoole Consult Reason/Comments: Abdominal pain, weight loss, colonic wall thickening Do you want consulting provider notified?: Yes Primary care physician: Mahi Espinoza Hospital Course: HISTORY OF PRESENT ILLNESS: This is an 86-year-old female patient of mine with PMH of hypertension, hyperlipidemia, gastroesophageal reflux disease and esophagitis, vascular dem entia. Patient's last hospitalization was in October 2020 following a fall and right hip fracture and underwent right hip hemiarthroplasty at that time, discharged to subacute rehab at [facility] Patient has history of exploratory laparotomy and extensive lysis of adhesions secondary to small bowel obstruction 07/[address] Otoole. Patient presented yesterday to the office with complaints of diarrhea that had been going on for the past month and worsening although medication changes have been made to try to address. Patient was found to be afebrile, heart rate 71, blood pressure 145/69, pulse ox 99% on room air. WBC 10.9, hemoglobin 11.5, platelet count 275. Sodium 135, potassium 4.5, chloride 102, CO2 26, BUN 13 and creatinine 0.7. Blood sugar 101. Lactic acid 1.2. Liver function tests were normal. Lipase 231. Urinalysis was clear, the cholesterol is moderate. C. difficile toxin negative. CAT scan of the abdomen and pelvis with contrast revealed rectal fecaloma measuring 7.7 cm in diameter with circumferential wall thickening of the anus and large perirectal lymph nodes. Findings may relate to an infectious or inflammatory process however malignancy would need to be considered in the setting of lymphadenopathy. Direct visualization is recommended. [facility], seen by Dr. Otoole and scheduled for sigmoidoscopy and biopsy today. Patient states that she is feeling a little bit better and abdominal discomfort is improved. Patient has been seen by physical therapy with recommendations for either home with home care with 24-hour pierce pervision or subacute rehab. 01/05: Yesterday, patient underwent sigmoidoscopy with Dr. Otoole which found fecal impaction and patient was disimpacted. She was started on clear liquid diet last evening which she tolerated. We will advance her diet this morning to regular and as long as patient tolerates, plan for discharge home today. Patient states that she is feeling better today. No nausea or vomiting. Patient has been started on MiraLAX and scheduled Senokot daily which will be continued at discharge. Patient has been afebrile, heart rate 67, blood pressure 138/69, pulse ox 97% on room air. Patient will be discharged home today in stable condition. DISCHARGE DIAGNOSES: 1. Abdominal discomfort, diarrhea secondary to fecal impaction status post sigmoidoscopy and disimpaction. 2. History of bowel obstruction in the past. 3. Hypertension. 4. Hyperlipidemia. 5. Gastroesophageal reflux disease. 6. Vascular dementia. 7. Gastroesophageal reflux disease. 8. Anemia of chronic disease. DISCHARGE PLAN: Return to [facility] Greater than 35 minutes was utilized and coordinating patient's discharge. Impression and plan of care have been directed as dictated by the signing physician. Kayley Jasso nurse practitioner acting as scribe for signing physician. Patient Condition at Discharge: Good Plan - Discharge Summary Discharge Rx Participant: Yes New Discharge Prescriptions: New polyethylene glycoL 3350 [Miralax] 17 gm PO DAILY packet Sennosides-Docusate Sodium [Senokot-S] 1 each PO BID tab Continue Donepezil [Aricept] 10 mg PO HS Memantine [Namenda] 5 mg PO BID Atorvastatin [Lipitor] 40 mg PO HS Famotidine 40 mg PO DAILY lisinopriL [Prinivil] 10 mg PO DAILY Ferrous Sulfate [Iron (65 MG Elemental)] 325 mg PO DAILY Discontinued Cholestyramine (with Sugar) [Cholestyramine Packet] 4 gm PO BID PRN PRN Reason: Diarrhea Discharge Medication List Donepezil [Aricept] 10 mg PO HS 08/14/18 [History] Atorvastatin [Lipitor] 40 mg PO HS 11/16/20 [History] Memantine [Namenda] 5 mg PO BID 11/16/20 [History] Famotidine 40 mg PO DAILY 01/03/22 [History] Ferrous Sulfate [Iron (65 MG Elemental)] 325 mg PO DAILY 01/03/22 [History] lisinopriL [Prinivil] 10 mg PO DAILY 01/03/22 [History] Sennosides-Docusate Sodium [Senokot-S] 1 each PO BID tab 01/05/22 [Rx] polyethylene glycoL 3350 [Miralax] 17 gm PO DAILY packet 01/05/22 [Rx] Follow up Appointment(s)/Referral(s): Mahi Espinoza MD [Primary Care Provider] - 1 Week
[2022-01-05] MEDS: polyethylene glycoL 3350 17 GM POWD.PACK PO SCH (10:01)
[2022-01-05] MEDS: FAMOTIDINE 20 MG TAB PO SCH (10:01)
[2022-01-05] MEDS: MEMANTINE 5 MG TAB PO SCH ×2 (10:01→19:42)
[2022-01-05] MEDS: lisinopriL 10 MG TAB PO SCH (10:01)
[2022-01-05] MEDS: SENNOSIDES-DOCUSATE SODIUM 1 EACH TAB PO SCH ×2 (10:01→19:43)
[2022-01-05] MEDS: SODIUM CHLORIDE 0.9% 1,000 ML IV SCH ×2 (10:02→17:16)
--- NOTE | 2022-01-05 12:56 | P.PN ---
Subjective Progress Note Date: 01/05/22 Principal diagnosis: Fecal impaction Patient doing well today. Underwent flexible sigmoidoscopy with disimpaction yesterday. No evidence of malignancy. Denies pain today. Tolerating diet. Objective - Vital Signs Vital signs: Vital Signs Temp 98.3 F 01/05/22 07:00 Pulse 67 01/05/22 07:00 Resp 18 01/05/22 08:00 BP 138/69 01/05/22 07:00 Pulse Ox 97 01/05/22 07:00 FiO2 Intake & Output 01/04/22 01/05/22 01/05/22 18:59 06:59 18:59 Intake Total 218 340 Output Total 400 Balance 218 -400 340 Weight 47.627 kg Intake: IV 100 Oral 118 340 Output: Urine 400 Other: Voiding Method Bedside Commode Bedside Commode # Voids 2 1 # Bowel Movements 2 0 - Exam Abdomen: Soft, nontender, nondistended - Labs CBC & Chem 7: 01/04/22 05:43 01/04/22 05:43 Assessment and Plan (1) Fecaloma Narrative/Plan: Patient doing better today. Options again reviewed with the patient's family yesterday. We discussed possibly doing a full colonoscopy on this patient. Interval follow-up CAT scan of the pelvis to evaluate the lymphadenopathy. They are not interested in any aggressive care. Agree with no further workup at this time. Agree with plans for discharge. Continue stool softeners as needed. Current Visit: Yes Status: Acute Code(s): K56.41 - FECAL IMPACTION SNOMED Code(s): 377804882
[2022-01-05] MEDS: DONEPEZIL 10 MG TAB PO SCH (19:42)
[2022-01-05] MEDS: ATORVASTATIN 40 MG TAB PO SCH (19:42)
[2022-01-06] MEDS: PIPERACILLIN-TAZOBACTAM 3.375 GM in SODIUM CHLORIDE 0.9% 100 ML IVPB SCH (02:05)
[2022-01-06] MEDS: FAMOTIDINE 20 MG TAB PO SCH (07:59)
[2022-01-06] MEDS: SENNOSIDES-DOCUSATE SODIUM 1 EACH TAB PO SCH (07:59)
[2022-01-06] MEDS: lisinopriL 10 MG TAB PO SCH (07:59)
[2022-01-06] MEDS: HEPARIN SODIUM,PORCINE/PF 5,000 UNIT/0.5 ML SYRINGE SQ SCH (08:00)
[2022-01-06] MEDS: MEMANTINE 5 MG TAB PO SCH (08:00)
[2022-01-06] MEDS: polyethylene glycoL 3350 17 GM POWD.PACK PO SCH (08:01)
[2022-01-06 08:16] VITALS: BP 154/70; PULSE 58; RESP 18; TEMP 98
--- NOTE | 2022-01-06 08:46 | P.PN ---
Subjective Progress Note Date: 01/05/22 HISTORY OF PRESENT ILLNESS: This is an 86-year-old female patient of mine with PMH of hypertension, hyperlipidemia, gastroesophageal reflux disease and esophagitis, vascular dementia. Patient's last hospitalization was in October 2020 following a fall and right hip fracture and underwent right hip hemiarthroplasty at that time, discharged to subacute rehab at [facility]. Patient has history of exploratory laparotomy and extensive lysis of adhesions secondary to small bowel obstruction 07/[address] Otoole. Patient presented yesterday to the office with complaints of diarrhea that had been going on for the past month and worsening although medication changes have been made to try to address. Patient was found to be afebrile, heart rate 71, blood pressure 145/69, pulse ox 99% on room air. WBC 10.9, hemoglobin 11.5, platelet count 275. Sodium 135, potassium 4.5, chlor dayna 102, CO2 26, BUN 13 and creatinine 0.7. Blood sugar 101. Lactic acid 1.2. Liver function tests were normal. Lipase 231. Urinalysis was clear, the cholesterol is moderate. C. difficile toxin negative. CAT scan of the abdomen and pelvis with contrast revealed rectal fecaloma measuring 7.7 cm in diameter with circumferential wall thickening of the anus and large perirectal lymph nodes. Findings may relate to an infectious or inflammatory process however malignancy would need to be considered in the setting of lymphadenopathy. Direct visualization is recommended. Patient has been admitted to [facility] floor, seen by Dr. Otoole and scheduled for sigmoidoscopy and biopsy today. Patient states that she is feeling a little bit better and abdominal discomfort is improved. Patient has been seen by physical therapy with recommendations for either home with home care with 24-hour superv ision or subacute rehab. 01/05: Yesterday, patient underwent sigmoidoscopy with Dr. Otoole which found fecal impaction and patient was disimpacted. She was started on clear liquid diet last evening which she tolerated. We will advance her diet this morning to regular and as long as patient tolerates, plan for discharge home today. Patient states that she is feeling better today. No nausea or vomiting. Patient has been started on MiraLAX and scheduled Senokot daily which will be continued at discharge. Patient has been afebrile, heart rate 67, blood pressure 138/69, pulse ox 97% on room air. Patient was prepared for discharge home but daughter requested subacute rehab. PT has evaluated and OT evaluation ordered. Social work is following for discharge planning most likely to [place] tomorrow. REVIEW OF SYSTEMS: Constitutional: No documented fever, no chills, no night sweats. No weight change. No weakness, fatigue or lethargy. No daytime sleepiness. EENT: No headache. No blurred vision or double vision, no loss of vision. No loss of Hearing, no ringing in the ears, no dizziness. No nasal drainage or congestion. No epistaxis. No sore throat. Lungs: No shortness of breath, no cough, no sputum production. No wheezing. Reports dyspnea with activity. Cardiovascular: No chest pain, no lower extremity edema. No palpitations. No paroxysmal nocturnal dyspnea. No orthopnea. No lightheadedness or dizziness. No syncopal episodes. Abdominal: Denies abdominal pain. No nausea, vomiting. Reported diarrhea. Noted constipation. No bloody or tarry stools. Reported loss of appetite. Genitourinary: No dysuria, increased frequency, urgency. No urinary retention. Musculoskeletal: No myalgias. No muscle weakness, no gait dysfunction, no dominic quent falls. No back pain. No neck pain. Integumentary: No wounds, no lesions. No rash or pruritus. No unusual bruising. No change in hair or nails. Neurologic: No aphasia. No facial droop. Chronic change in mentation due to underlying dementia. No head injury. No headache. No paralysis. No paresthesia. Psychiatric: No depression. No anxiety. No mood swings. Endocrine: No abnormal blood sugars. No weight change. PHYSICAL EXAMINATION: General: this is an 86-year-old female. She is resting in bed and appears to be comfortable and in no acute distress. HEENT: Head is atraumatic, normocephalic, pupils were equal round reactive to light and recommendation, extraocular muscle movement were intact, sclera nonicteric, conjunctivae were pale, mucous membranes of the mouth are somewhat dry. Neck: Supple, no JVP, normal carotid upstroke bilaterally, no lymphadenopathy. Chest: Decreased breath sounds at the bases, few rhonchi, no extremity wheezes, no chest wall tenderness, no intercostal retractions. Heart: First heart sound is depressed, second heart sounds normal. there is a 2/6 systolic ejection murmur at the left sternal border. No S3, S4. No JVP. Abdomen: Soft, nontender, nondistended, positive bowel sounds. Extremities: There is no edema no calf tenderness DP +2 bilaterally. Neurologic examination: Patient is awake alert and oriented to person. She is pleasantly confused, cranial nerves II-12 appear grossly intact, muscle power were 5 out of 5 in upper extremities and 5 out of 5 in bilateral lower extremities. ASSESSMENT AND PLAN: 1. Abdominal discomfort, diarrhea with CAT scan finding of rectal fecaloma, anal wall thickening and enlarged lymph nodes. Patient is scheduled for sigmoidoscopy and biopsy today with Dr. Otoole. Morphine is available as needed for pain. Discontinue Zosyn and IV fluids, continue Senokot twice daily and MiraLAX 17 g daily 2. History of bowel obstruction in the past. 3. Hypertension. Continue lisinopril 10 mg daily. 4. Hyperlipidemia. Continue atorvastatin 40 mg daily. 5. Gastroesophageal reflux disease. Continue Protonix 40 mg daily. 6. Vascular dementia. Continue Aricept 10 mg daily, Namenda 5 mg daily. 7. Gastroesophageal reflux disease. Continue famotidine 40 mg daily. 8. Anemia of chronic disease. Patient has been on ferrous sulfate 325 mg daily. 9. DVT prophylaxis. Heparin subcu. DISCHARGE PLAN: Subacute rehab at [facility] tomorrow. Impression and plan of care have been directed as dictated by the signing physician. Kayley Jasso nurse practitioner acting as scribe for signing physician. Objective - Vital Signs Vital signs: Vital Signs Temp 98.3 F 01/05/22 07:00 Pulse 67 01/05/22 07:00 Resp 18 01/05/22 08:00 BP 138/69 01/05/22 07:00 Pulse Ox 97 01/05/22 07:00 FiO2 Intake & Output 01/04/22 01/05/22 01/05/22 18:59 06:59 18:59 Intake Total 218 340 Output Total 400 Balance 218 -400 340 Weight 47.627 kg Intake: IV 100 Oral 118 340 Output: Urine 400 Other: Voiding Method Bedside Commode Bedside Commode # Voids 2 1 2 # Bowel Movements 2 0 2 - Labs CBC & Chem 7: 01/04/22 05:43 01/04/22 05:43
== END 2022-01-06 14:50 | DRG 390 ==
LOC: EC 12:20 → 6NMEDSUR 14:50 → OBSVTOIN 01-04 08:19 → 6NMEDSUR 01-06 06:21
PROVIDERS: ADMIT Internal Medicine; ATTEND Internal Medicine
PROC: 0DJD8ZZ Inspection of Lower Intestinal Tract, Via Natural or Artificial Opening Endoscopic (ICD-10-PCS; principal; 2022-01-04 07:45)
DX: K56.41 Fecal impaction (principal); D63.8 Anemia in other chronic diseases classified elsewhere; E78.5 Hyperlipidemia, unspecified; E86.0 Dehydration; F01.50 Vascular dementia, unspecified severity, without behavioral disturbance, psychotic disturbance, mood disturbance, and anxiety; R59.0 Localized enlarged lymph nodes; I10 Essential (primary) hypertension; K21.9 Gastro-esophageal reflux disease without esophagitis; K64.9 Unspecified hemorrhoids; K64.8 Other hemorrhoids; Z79.01 Long term (current) use of anticoagulants; Z79.82 Long term (current) use of aspirin; Z79.899 Other long term (current) drug therapy; Z82.49 Family history of ischemic heart disease and other diseases of the circulatory system; Z87.891 Personal history of nicotine dependence; Z90.49 Acquired absence of other specified parts of digestive tract; Z20.822 Contact with and (suspected) exposure to COVID-19; Z91.81 History of falling; Z71.3 Dietary counseling and surveillance
CPT/HCPCS: 36415; 45330; 74177; 80053; 81001; 82150; 83605; 83690; 85025; 87045; 87046; 87324; 87635; 96361; 96365; 96375; 99285